=== PATIENT | male | born 1955 | race Caucasian/White ===

== ENCOUNTER → 2017-06-17 16:07 | Outpatient (CLI) | payer OTHER, SELFPAY ==
[2017-06-17 17:08] LABS: Absolute Lymphocyte Count 1.58 X10^3/ul (0.83-4.51); Absolute Neutrophil Count 4.6 X10^3/uL (2.0-7.7); Basophil# 0.02 X10^3/uL; Basophil% 0.3 % (0-1); Eosinophil# 0.16 X10^3/uL; Eosinophils% 2.3 % (0-5); Hematocrit 45.8 % (40-54); Hemoglobin 15.9 g/dl (13.0-16.5); Lymphocyte # 1.58 X10^3/ul (4.0); Lymphocyte % 22.4 % (19-41); Mean Corp Hgb Conc 34.7 g/gl (32-36); Mean Corpuscular Hgb 30.6 pg (27.0-32.0); Mean Corpuscular Volume 88.1 fL (80-94); Mean Platelet Vol. 9.9 fl (6.2-12.0); Monocyte% 9.9 % (0-10); Neutrophil # 4.56 X10^3/uL (2.7-7.7); Neutrophil % 64.5 % (47-70); POSITIVE COUNT NO; POSITIVE DIFFERENTIAL NO; POSITIVE MORPHOLOGY NO; Platelet Count 266 K/mm3 (150-450); RBC Distribution Width CV 13.3 % (11.6-14.6); RBC Distribution Width SD 42.8 fl (35.1-43.9); White Blood Count 7.1 K/mm3 (4.4-11.0)
[2017-06-17 17:37] LABS: AST(SGOT) 36 U/L (15-37); Alanine Aminotransfer ALT/SGPT 62 U/L (16-61); Albumin, Serum 3.7 g/dL (3.2-5.0); Alkaline Phosphatase 71 U/L (45-117); Anion Gap 9 (5-15); BUN 17 mg/dL (7-18); BUN/Creat Ratio 16.8 RATIO (10-20); Calcium,Total 9.3 mg/dL (8.5-10.1); Chloride 102 mmol/L (98-107); Creatinine, Serum 1.01 mg/dL (0.70-1.30); EST Glomerular Filtration Rate 79 mL/min (>60); Est Glom Filt Rate - Afr Amer 96 mL/min (>60); Globulin 3.7 g/dL (2.2-4.2); Glucose 88 mg/dL (74-106); PSA,Total - Annual Screen 7.73 ng/mL (0.00-4.00); Potassium 3.6 mmol/L (3.5-5.1); Protein, Total 7.4 g/dL (6.4-8.2); Sodium Level 139 mmol/L (136-145); Thyroid Stim Hormone (TSH) 1.02 uIU/mL (0.358-3.74)
[2017-06-19 11:22] LABS: Hep C Antibodies <0.1 s/co ratio (0.0-0.9)
== END ==
PROVIDERS: Family Provider Nurse Practitioner Family; PCP Nurse Practitioner Family; Visit Provider Family Medicine Geriatric Medicine
DX: Z00.00 Encounter for general adult medical examination without abnormal findings (principal)
CPT/HCPCS: 36415; 80053; 84153; 84443; 85025; 86803; G0103

== ENCOUNTER → 2018-06-21 09:36 | Outpatient (CLI) | payer MEDICAID, SELFPAY ==
[2015-07-18 02:28] VITALS: BMI 41.9
--- NOTE | 2018-06-21 09:40 | RAD_ITS ---
STUDY: X-RAY - RIGHT KNEE REASON FOR EXAM: Male, 62 years old. Pain with extension TECHNIQUE: 4 view(s) of the knee. COMPARISON: None. FINDINGS: Normal visualized distal femur. Normal visualized proximal tibia and fibula. Normal proximal tibiofibular articulation. There is mild medial and lateral compartment joint space narrowing and moderate chondrocalcinosis. Normal patellofemoral articulation. There are superior and inferior patellar pole osteophytes. There is a moderate volume joint effusion. The soft tissue structures are unremarkable. RAD/Knee 4 or More Views IMPRESSION: No fracture or dislocation. There are degenerative changes particularly at the medial and lateral compartments. Moderate joint effusion. Electronically Signed: Toyin Briggs, at 16:51 EDT Tel , Service support ,
== END ==
PROVIDERS: Family Provider Nurse Practitioner Family; PCP Nurse Practitioner Family; Referring Provider Orthopaedic Surgery; Visit Provider Orthopaedic Surgery
DX: R52 Pain, unspecified (principal)
CPT/HCPCS: 73564

== ENCOUNTER 2018-09-02 11:00 | Outpatient (RCR) | payer MEDICAID, SELFPAY ==
--- NOTE | 2018-08-05 12:04 | HP.PTEVAL_ITS ---
Patient's Visit Information LUCIAN LORD is a 62 year old M referred to Physical Therapy by Bryant Lobo DO with a diagnosis of Right Knee OA. Date of Evaluation: 08/05/18 Physical Therapist: Nuvia Bruno DPT - Visit Plan Frequency: 2x /Week Duration: 4 Weeks Plan: Knee OA- focus on LE and core s/s- Ultrasound to lateral joint line - Subjective Findings: Patient reports that he has calcium build up and OA in the right knee- Has had problems with this knee a few months. Had an injection June 17 which gave him relief for 5-7 days. Pain is located along the lateral aspect of the knee and posterior knee. Pain radiates both to his hip and ankle depending on the day. Agg: walking on uneven surfaces driving, standing, mopping. Worst: 7/10 Eases: sitting in a higher chair. 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 Sleep: pillow under his knee does wake him occasionally. Does not use AD. He is fully I including driving. Does wear good tennis shoes but does not wear orthotics- does not wear a brace. Sometimes when he gets out of the van after driving a distance he always waits a few min before he gets moving. No falls or LOB in the past year. PMHX/Meds: none since he saw Dr. Antunez. (allergy med, Meloxicam, Flomax and a HTN medication) - Objective Posture: FH, RS, Increased kyphosis. Gait: slightly antalgic- decreased stance on right LE with poor heel strike. Stairs: asc/desc 8' recip with 1 HR- decrease control with descent. HR/TR: Increased pain with TR. Palpation: tender along lateral joint line. ROM: 15-95 degrees. SLS: 3 seconds then LOB. Strength: Ankle: 5/5, Knee: 4-/5, Hip: 4/5 Core: poor. Solo: positive. Flex:HS: severe - Goals Goal 1:: Patient will be I with HEP and progression Goal Time Frame: 4-6 Weeks Goal 2:: Patient will asc/desc 8 recip with 1 HR and good control Goal Time Frame: 4-6 Weeks Goal 3:: Patient will demo 0-115 degrees of ROM Goal Time Frame: 4-6 Weeks Goal 4:: Patient will demo 5/5 strength in LE Goal Time Frame: 4-6 Weeks - Rehabilitation Potential Physical Therapy Diagnosis: Patient presents with hypomobility- he has decreased ROM, strength and muscular endurance leading to increased pain with ADL's. Rehabilitation Potential: Fair - Anticipated Interventions Patient/Client Instruction: Educate patient on: Benefits of Fitness Program Therapeutic Exercise to Include: Strength training, Endurance training, Balance training, Agility training, Body mechanics, Postural training, Flexibilty training, Gait and locomotor training, Passive ROM, Active ROM, Dynamic Lumbar Stabilization For the Purpose of:: To improve muscle performance and motor function TENS: Yes Cryotherapy (ice pack, ice massage): Yes Thermo therapy (hot pack): Yes Ultrasound (thermal/non thermal): Yes Thank you for the opportunity to evaluate your patient. For Medicare and Medicare HMO plans, please review the plan of care and approve it. It will need to be FAXED BACK to us at [phone] for Medicare purposes. For Medicare only, by signing this I certify the plan of care. Please let me know if there are questions or concerns regarding this plan of care. Physician Signature: Date:
--- NOTE | 2018-09-02 11:26 | HP.PTDCSUM ---
HP - PT D/C Summary It has been my pleasure to treat LUCIAN LORD under orders from Bryant Lobo DO, for the diagnosis of Right Knee OA for a total of 7 visit(s). Discharge Date: Please see the following information for a summary of their discharge status. - Subjective Subjective: Patient reports that the knee pain ranges from 5-8/10- needs to make himself move around more- he is most painful when he is sitting for long periods of time. Also feels like the weather changes his knee pain. - Pain right lat knee pain Pain Intensity (Out of 10): 5 - Overall Improvement % Improvement: 60 - Objective Objective/Function: Posture: FH, RS, Increased kyphosis. Gait: more lumbering pattern bilaterally. Stairs: asc/desc 8' recip with 1 HR- decrease control with descent. HR/TR: able with UE A. Palpation: tender along lateral joint line. ROM: 5-110 degrees. SLS: 6 seconds then LOB. Strength: Ankle: 5/5, Knee: 5/5, Hip: 4+/5 Core: fair. Solo: positive. Flex:HS: severe - Goals Goal 1:: Patient will be I with HEP and progression Goal Progress: Goal Met Goal 2:: Patient will asc/desc 8 recip with 1 HR and good control Goal Progress: Progressing Goal 3:: Patient will demo 0-115 degrees of ROM Goal Progress: Progressing Goal 4:: Patient will demo 5/5 strength in LE Goal Progress: Progressing - Plan Plan: Discharge to I HEP- encouraged movement - D/C Information If there are questions or concerns regarding this patient's physical therapy, please feel free to call me at [phone]. Thank you for the referral of this patient. Sincerely, Nuvia Bruno DPT
== END 2018-09-02 19:00 | disposition home or self-care (01) ==
LOC: PT 11:00
PROVIDERS: Family Provider Nurse Practitioner Family; PCP Nurse Practitioner Family; Referring Provider Orthopaedic Surgery; Visit Provider Orthopaedic Surgery
DX: M17.11 Unilateral primary osteoarthritis, right knee (principal)
CPT/HCPCS: 97035; 97110; 97161; 97164

== ENCOUNTER → 2018-10-29 11:14 | Outpatient (CLI) | payer MEDICAID, SELFPAY ==
[2018-10-29 11:10] VITALS: BMI 39.2
--- NOTE | 2018-10-29 11:16 | RAD_ITS ---
STUDY: X-RAY - RIGHT SHOULDER REASON FOR EXAM: Male, 62 years old. Pain TECHNIQUE: 4 view(s) of the shoulder. COMPARISON: None. FINDINGS: There are degenerative changes of the glenohumeral articulation. There are degenerative changes of the acromioclavicular joint. Normal acromion. Normal humeral head and visualized proximal humerus. There is periarticular soft tissue calcification consistent with a calcific tendinitis. Normal visualized pulmonary apex. RAD/Shoulder min 2 Views IMPRESSION: Degenerative changes. Calcific tendinitis. Electronically Signed: Sheri Lee MD at 16:48 EDT Tel , Service support ,
--- NOTE | 2018-10-29 11:16 | RAD_ITS ---
STUDY: X-RAY - CERVICAL SPINE REASON FOR EXAM: Male, 62 years old. Neck and shoulder pain. TECHNIQUE: 6 view(s) of the cervical spine were obtained. COMPARISON: None FINDINGS: Normal anterior atlantoaxial articulation. Normal odontoid process. Normal cervical lordosis. There is multi-level endplate spondylosis. There is multi-level degenerative disc disease with multilevel disc space narrowing. There is multi-level osseous foraminal stenosis. The soft tissue structures are unremarkable. RAD/Cerv Spine 4 or 5 Views IMPRESSION: Degenerative changes. Electronically Signed: Sheri Lee MD at 17:00 EDT Tel , Service support ,
== END ==
PROVIDERS: Family Provider Nurse Practitioner Family; PCP Nurse Practitioner Family; Referring Provider Orthopaedic Surgery; Visit Provider Orthopaedic Surgery
DX: M43.6 Torticollis (principal); M25.511 Pain in right shoulder
CPT/HCPCS: 72050; 73030

== ENCOUNTER 2018-12-31 11:00 | Outpatient (RCR) | payer MEDICAID, MEDICARE, SELFPAY ==
[2018-10-29 11:10] VITALS: BMI 39.2
--- NOTE | 2018-11-08 15:30 | HP.PTEVAL ---
Patient's Visit Information LUCIAN LORD is a 62 year old M referred to Physical Therapy by Bryant Lobo DO with a diagnosis of Cervical DDD. Date of Evaluation: 11/08/18 Physical Therapist: Susan Viramontes PT, Cert MDT - Visit Plan Frequency: 2-3x /Week Duration: 4-6 Weeks Plan: POSTURE CORRECTION/STRENGTHENING, INSTRUCTION IN APPROPRIATE BODY MECHANICS AND ACTIVITY MODIFICATIONS. CERVCIAL TX - MECHANICAL AND/OR MANUAL APPROPRIATE. RENE UE ROM, STRETCHING AND STRENGTHENING. HEP INSTRUCTION. 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 Disability: NO. Present symptoms: RIGHT NECK, SHOULDER ARM AND PROXIMAL FOREARM PAIN. INTERMITTENT RIGHT UPPER ARM TINGLING. Present since: ABOUT 6 WEEKS AGO. Pain Scale: Worst - 7/10 Least - 4/10. Currently: 4/10. Commenced as a result of: NO APPARENT REASON. Symptoms at onset: NECK AND SHOULDER. Worse: PUTTING HANDS BEHIND BACK, SHAKING HANDS, TAKING TRASH OUT, TWISTING, DRIVING, HOLDING BAGS IN HANDS WITH ARMS DOWN AT SIDES TO GET X-RAYS. Better: REST, HOT SHOWER WATER. Disturbed sleep: YES. Previous history/Previous treatment: UNREMARKABLE. Dizziness: NO. Tinnitis: NO. Nausea: NO. Shortness of Breath: NO. Difficulty Swollowing: NO. Gait: NORMAL. Accidents: NO. Unexplained weight loss: NO. Imaging: RECENT NECK X-RAY: There is multi-level endplate spondylosis. There is multi-level degenerative disc disease with multilevel disc space. narrowing. There is multi-level osseous foraminal stenosis. RECENT RIGHT SHOULDER X-RAY: FINDINGS: There are degenerative changes of the glenohumeral articulation. There are. degenerative changes of the acromioclavicular joint. Normal acromion. Normal humeral head and visualized proximal humerus. There is periarticular soft tissue calcification consistent with a calcific. tendinitis. PMH/Recent major surgery: HTN, RIGHT KNEE ARTHRITIS. PATIENT REPORTS HE RECENTLY HAD PT HERE FOR HIS RIGHT KNEE PAIN AND IT HELPED - Objective Sitting Posture/Standing Posture: POOR. FORWARD HEAD, ROUNDED SHOULDERS, SLOUCHED. Active Correction of posture: WORSE. Other Observations: INDEP GAIT AND TRANSFERS WITH NO GROSS DEVIATIONS NOTED. Motor deficit: RENE UE'S GROSSLY 5/5 EXCEPT RENE SHOULDERS GRADED 4/5. 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 RIGHT UE TESTING PROVOKES NUMBNESS AND STINGING IN RIGHT SHOULDER. Sensory deficit: RENE UE LIGHT TOUCH SENSATION APPEARS INTACT AND SYMMETRICAL EVEN IN RIGHT SHOULDER WHERE HE GETS NUMBNESS. ROM deficit: RENE SHOULDER ROM LIMITATION BY APPROX 30% AND PAIN IN RIGHT SHOULDER WITH TESTING BUT NOT LEFT. Reflexes: RENE UE'S 2/3. Dural Signs: POSITIVE RIGHT UE. Cervical Mvmt Loss: Flex: NIL. Pro: NIL. Ext: MOD. Ret: ALYSSA. RSB: MOD. LSB: MOD. R Rot: MOD. L Rot: MOD. RETRACTION, EXT, AND RENE SB TESTING PROVOKES INCREASED RIGHT UE PAIN AND NUMBNESS. Postural strength: VERY POOR. Palpation: NO ACUTE TENDERNESS WITH PALPATION OF THE CERVICAL SPINE, CERVICAL MUSCULATURE, UPPER THORACIC OR RIGHT SHOULDER REGIONS. OTHER: MANUAL CERVICAL TX TESTING AND SEATED PASSIVE POSTURE CORRECTION RESULT IN IMMEDIATE DECREASE IN RIGHT NECK AND SHOULDER SX'S. - Goals Goal 1:: DECREASE C/O NECK AND RIGHT UE SX'S Goal Time Frame: 4-6 Weeks Goal 2:: IMPROVE PERSONAL CARE, READING, SLEEP, WORK, DRIVING AND RECREATIONAL FUNCTION Goal Time Frame: 4-6 Weeks Goal 3:: INSTRUCT IN PROPHYLAXIS Goal Time Frame: 4-6 Weeks - Rehabilitation Potential Rehabilitation Potential: Fair - Anticipated Interventions Patient/Client Instruction: Educate patient on: Condition, Plan of Care, Risk Factors, Benefits of Fitness Program For the Purpose of:: To improve self management Therapeutic Exercise to Include: Strength training, Body mechanics, Postural training, Active ROM, Scapular Strength/Stabilization For the Purpose of:: To decrease pain, To increase ROM, To improve muscle performance and motor function, To increase tolerance to activity/condition/position, To improve ability of physical actions for home/community/work/leisure Cryotherapy (ice pack, ice massage): Yes Thermo therapy (hot pack): Yes Ultrasound (thermal/non thermal): Yes Intermittent cervical traction: Yes For the Purpose of:: To decrease pain, To increase ROM, To improve nutrient delivery to tissue Thank you for the opportunity to evaluate your patient. For Medicare and Medicare HMO plans, please review the plan of care and approve it. It will need to be FAXED BACK to us at [phone] for Medicare purposes. For Medicare only, by signing this I certify the plan of care. Please let me know if there are questions or concerns regarding this plan of care. Physician Signature: Date:
--- NOTE | 2018-12-31 11:32 | HP.PTDCSUM ---
HP - PT D/C Summary It has been my pleasure to treat LUCIAN LORD under orders from Bryant Lobo DO, for the diagnosis of Cervical DDD for a total of 11 visit(s). Discharge Date: Please see the following information for a summary of their discharge status. - Subjective Subjective: YOU'RE NOT GOING TO BELIEVE THIS BUT TODAY I HAVE VERY LITTLE PAIN - 2/10. NO NUMBNESS OR TINGLING. PATIENT REPORTS HE IS BETTER OVER-ALL AND GOOD TODAY BUT DOESN'T THINK IT IS CONTINUING TO IMPROVE MUCH. 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 PATIENT REPORTS THE PAIN HE WAS GETTING WITH SHAKING HANDS SEEMS TO HAVE GONE AWAY. REPORTS HE COULDN'T BELIEVE HOW GOOD IT FELT DRIVING TO [place] TODAY. PATIENT REPORTS THAT TO BE HONEST HE DOES NOT DO HIS HOME EX'S MUCH HE SHOULD. - Pain Upper R arm Pain Intensity (Out of 10): 0 r shoulder Pain Intensity (Out of 10): 2 R Cervical Pain Intensity (Out of 10): 2 - Overall Improvement % Improvement: 50 - Objective Objective/Function: PATIENT HAS NOT BEEN ABLE TO COME TO HIS SCHEDULED PHYSICAL THERAPY [facility] CONSISTENTLY LATELY DUE TO BEING AT [facility]. HE ALSO REPORTS NON-COMPLIANCE WITH HEP CONSISTENTLY BUT WITH TREATMENT OVER THE LAST 6 WEEKS OR SO HE REPORTS 50% IMPROVEMENT. Motor deficit: RENE UE'S GROSSLY 5/5 EXCEPT RENE SHOULDERS GRADED 4/5. 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 RIGHT UE TESTING PROVOKES JUST A LITTLE PAIN IN THE SHOULDER BUT NOT BEHIND THE ELBOW LIKE BEFORE. Sensory deficit: RENE UE LIGHT TOUCH SENSATION APPEARS INTACT AND SYMMETRICAL EVEN IN RIGHT SHOULDER WHERE HE STILL GETS NUMBNESS. ROM deficit: RENE SHOULDER ROM LIMITATION BY APPROX 30% AND JUST A LITTLE PAIN IN RIGHT SHOULDER REPORTED WITH TESTING BUT NOT LEFT. Dural Signs: POSITIVE RIGHT UE. Cervical Mvmt Loss: Flex: NIL. Pro: NIL. Ext: MOD. Ret: ALYSSA. RSB: MOD. LSB: MOD. R Rot: MOD. L Rot: MOD. PATIENT REPORTS RIGHT NECK PAIN WITH RETRACTION TESTING TODAY BUT OTHERWISE DENIES INCREASED PAIN, NUMBNESS OR TINGLING WITH CERVICAL ROM TESTING. Postural strength: VERY POOR. Palpation: NO ACUTE TENDERNESS WITH PALPATION OF THE CERVICAL SPINE, CERVICAL MUSCULATURE, UPPER THORACIC OR RIGHT SHOULDER REGIONS. OTHER: LAST PHYSICAL THERAPY VISIT INCLUDED TRACTION TREATMENT WITH 21 LBS AND WAS TOLERATED WELL. - Goals Goal 1:: DECREASE C/O NECK AND RIGHT UE SX'S Goal Progress: Progressing Goal 2:: IMPROVE PERSONAL CARE, READING, SLEEP, WORK, DRIVING AND RECREATIONAL FUNCTION Goal Progress: Progressing Goal 3:: INSTRUCT IN PROPHYLAXIS Goal Progress: Progressing - Plan Plan: D/C DUE TO LACK OF CONTINUED PROGRESS. PATIENT REPORTS HE WOULD LIKE TO TRY TO GIVE THE HEP A SHOT FOR AWHILE THEN GO BACK TO SEE DR. WEST IF HE DOESN'T IMPROVE. - D/C Information If there are questions or concerns regarding this patient's physical therapy, please feel free to call me at [phone]. Thank you for the referral of this patient. Sincerely, Susan Viramontes, PT, Cert MDT
== END 2018-12-31 19:00 | disposition home or self-care (01) ==
LOC: PT 11:00
PROVIDERS: Family Provider Nurse Practitioner Family; PCP Nurse Practitioner Family; Referring Provider Orthopaedic Surgery; Visit Provider Orthopaedic Surgery
DX: M50.30 Other cervical disc degeneration, unspecified cervical region (principal)
CPT/HCPCS: 97012; 97035; 97110; 97140; 97161; 97530

== ENCOUNTER → 2019-01-10 08:23 | Outpatient (CLI) | payer MEDICARE, MEDICAID, SELFPAY ==
[2019-01-10 08:10] VITALS: BMI 39.2
--- NOTE | 2019-01-10 08:27 | RAD_ITS ---
STUDY: X-RAY - LEFT SHOULDER REASON FOR EXAM: Male, 63 years old. Shoulder pain for one week after lifting a heavy object. TECHNIQUE: 4 view(s) of the shoulder. COMPARISON: None. FINDINGS: Normal glenohumeral articulation. There is hypertrophic osteoarthrosis of the acromioclavicular joint with inferior osseous spur formation. Normal acromion. There is no acute fracture, dislocation or destructive osseous pathology. Normal humeral head and visualized proximal humerus. The soft tissue structures are unremarkable. Normal visualized pulmonary apex. RAD/Shoulder min 2 Views IMPRESSION: Degenerative changes of the acromioclavicular joint without acute fracture or dislocation. Electronically Signed: Jonathan Almanzar DO at 16:53 EDT Tel [phone], Service support ,
== END ==
PROVIDERS: Family Provider Nurse Practitioner Family; PCP Nurse Practitioner Family; Referring Provider Orthopaedic Surgery; Visit Provider Orthopaedic Surgery
DX: M25.512 Pain in left shoulder (principal)
CPT/HCPCS: 73030

== ENCOUNTER → 2019-01-21 09:04 | Outpatient (CLI) | payer MEDICARE, MEDICAID, SELFPAY ==
[2019-01-10 08:10] VITALS: BMI 39.2
--- NOTE | 2019-01-21 09:12 | RAD_ITS ---
EXAM DESCRIPTION: PA and lateral CHEST CLINICAL HISTORY: 63 years Male, COMPARISON: Left shoulder x-rays obtained on 07/10/2018 FINDINGS: The thorax is intact. The heart and mediastinum appear to be within normal limits. The lungs appear to be well areated without evidence of pneumonic consolidation or pleural effusion. RAD/Chest PA and Lateral IMPRESSION: Normal chest. Electronically Signed: Koby Gamez, at 11:23 EDT Tel , Service support ,
== END ==
PROVIDERS: Family Provider Nurse Practitioner Family; PCP Nurse Practitioner Family
DX: R07.89 Other chest pain (principal)
CPT/HCPCS: 71046; 97035; 97140; 97530

== ENCOUNTER 2019-02-07 10:00 | Outpatient (RCR) | payer MEDICARE, MEDICAID, SELFPAY ==
[2019-01-10 08:10] VITALS: BMI 39.2
--- NOTE | 2019-01-18 10:49 | HP.PTEVAL ---
Patient's Visit Information LUCIAN LORD is a 63 year old M referred to Physical Therapy by Bryant Lobo DO with a diagnosis of Cevical DDD and L rhomboid strain. Date of Evaluation: 01/17/19 Physical Therapist: Alejandro Bryant DPT - Visit Plan Frequency: 2x /Week Duration: 4-6 Weeks Plan: Start with US to L rhomboid, cervical traction, deep neck flexor strengthening. Add in thoracic extension exercises. Complete to tolerance. - Subjective Findings: Pt. is here today for his initial evaluation with diagnosis of cervical DDD. Pt. reports previously having R shoulder pain earlier this year, but is not having L scapular pain. Pt. rpeorts increased pain with sleeping, lifting and reaching out. Pt. reports decreased pain with OFC anti inflammatories. No ice or heat. Pt. reports decreased pain with L arm supported. PT. deneis N/T in either UE. Pt. does have some associated neck pain as well. PT. reports he thinks he hurt his L scapular region while lifting a generator. Pt. reports his neck pain is a lot better. Pt. has not trialed ice or heat. He has had xrays of his neck. He denies N/T in his UE. Pt. reports increased L scapular pain with reaching, and elevation ofhis arm, Pt. is hopeful to get back to all recreational activiteis without limitations. - Pain Neck Pain Intensity (Out of 10): 1 Pain Intensity Range: 0, 2 L scapular region Pain Intensity (Out of 10): 5 Pain Intensity Range: 0, 6 - Objective POSTURE: Pt. has fwrd head posture, rounded shoulders, increased upper thoracic/lower cervical flexion. pt. is able to improve posture, but unable to fully correct. PALPATION: Pt. has tenderness along bilateral cervcial erector spine, but greatest soreness at L rhomboid and L scapulea origin. No pain with R sided scapular palpation. Hypombility with spring testing of thoracic spine, but no radicular symptoms. NEURO: normal throughout. ROM: CERVICAL SPINE: flexion min loss increase NW, extension mod loss increase NW, SB R min loss increase NW, SB L min loss increase NE, SB mod loss bilat NE. [place] ROM: R full No issues, L shoulder pain with flexion and abduction, but able to complete full motion. MMT: 5/5 throughout; increase in symptoms with L shoulder flexion, abd and horizontal abduction. - Special Tests C/S Radiculapathy - Left Upper limb tension test: Negative C/S Radiculapathy - Right Upper limb tension test: Negative C/S Radiculapathy - Left Spurlings: Negative C/S Radiculapathy - Right Spurlings: Negative C/S Radiculapathy - Left Relief test: Positive Thoracic Sitting: Flexion - Mechanical Response: No effect Thoracic Sitting: Flexion - Symptoms During Testing: No effect Thoracic Sitting: Flexion - Symptoms After Testing: No effect Thoracic Sitting: Extension - Mechanical Response: Increases motion Thoracic Sitting: Extension - Symptoms During Testing: Increases Thoracic Sitting: Extension - Symptoms After Testing: No worse - Goals Goal 1:: Pt. to be I with HEP. Goal Time Frame: 4-6 Weeks Goal 2:: Pt. to have no pain with all reaching, lifting and all ADLs. Goal Time Frame: 4-6 Weeks Goal 3:: Pt. to demonstrate improved posture throughout therapy session. Goal Time Frame: 4-6 Weeks Goal 4:: Pt. to sleep throuhgout the night without increase in symptoms. Goal Time Frame: 4-6 Weeks - Rehabilitation Potential Physical Therapy Diagnosis: Pt. has signs and symptoms of cervical DDD and rhomboid strain. Pt. would benefit from traction and deep neck flexor strengthening along with L rhomboid STM to reduce tissue issues. Rehabilitation Potential: Excellent - Anticipated Interventions Patient/Client Instruction: Educate patient on: Condition, Plan of Care, Risk Factors, Benefits of Fitness Program For the Purpose of:: To facilitate caregiver knowledge, To improve self management, To improve ability to perform tasks related to life management, To improve tolerance to ADL's Therapeutic Exercise to Include: Strength training, Power training, Endurance training, Postural training, Flexibilty training, Passive ROM, Active ROM, Natan Exercises For the Purpose of:: To decrease pain, To increase ROM, To improve nutrient delivery to tissue, To increase oxygenation perfusion, To improve muscle performance and motor function, To improve health of tissue, To decrease soft tissue restriction, To increase flexibility/ROM Manual Therapy Techniques to Include: Mobilization, Passive ROM, Functional dry needling, Soft tissue mobilization For the Purpose of:: To decrease pain, To decrease swelling/inflammation, To increase ROM, To improve nutrient delivery to tissue, To increase oxygenation perfusion Ultrasound (thermal/non thermal): Yes Intermittent cervical traction: Yes For the Purpose of:: To decrease pain, To increase ROM, To improve nutrient delivery to tissue, To increase oxygenation perfusion, To improve muscle performance and motor function, To improve ability to perform ADL's Thank you for the opportunity to evaluate your patient. For Medicare and Medicare HMO plans, please review the plan of care and approve it. It will need to be FAXED BACK to us at [phone] for Medicare purposes. For Medicare only, by signing this I certify the plan of care. Please let me know if there are questions or concerns regarding this plan of care. Physician Signature: Date:
--- NOTE | 2019-02-07 11:25 | HP.PTREVAL ---
Bryant Lobo, DO, It has been my pleasure to treat LUCIAN LORD over the last 7 visits for Cevical DDD and L rhomboid strain. Please see the progress note below for an update on the physical therapy plan of care! Subjective: Pt. reports having about 3/10 L shoulder blade area Objective/Function: CERVICAL ROM: flexion min loss NE, extension min/mod loss increase NE on L side mild, rotation. Pt. has imrpvoed posture, I am really focusing on sitting up straight. Pt. reports overall improved, but is still having some pain in his L mid scapular region. Pt. reports he is able to do most activities at home, but is still having some difficulty with reaching across his body. He reports being 50% better overall. Pt. can still improve on his posture to reduce stress to the L scapula musculature. Plan Plan: POC extended x1 per week for 4 weeks. Progress HEP with focus on postural strengtening, scapular strengthening, add in mid trap stretch as well. Progress HEP this date. Goals Goal 1:: Pt. to be I with HEP. Goal Time Frame: 4-6 Weeks Goal Progress: Goal Met Goal 2:: Pt. to have no pain with all reaching, lifting and all ADLs. Goal Time Frame: 4-6 Weeks Goal Progress: Progressing Goal 3:: Pt. to demonstrate improved posture throughout therapy session. Goal Time Frame: 4-6 Weeks Goal Progress: Progressing Goal 4:: Pt. to sleep throughout the night without increase in symptoms. Goal Time Frame: 4-6 Weeks Goal Progress: Progressing Anticipated Interventions Patient/Client Instruction: Educate patient on: Condition, Plan of Care, Risk Factors, Benefits of Fitness Program For the Purpose of:: To facilitate caregiver knowledge, To improve self management, To improve ability to perform tasks related to life management, To improve tolerance to ADL's Therapeutic Exercise to Include: Strength training, Power training, Endurance training, Postural training, Flexibilty training, Passive ROM, Active ROM, Natan Exercises For the Purpose of:: To decrease pain, To increase ROM, To improve nutrient delivery to tissue, To increase oxygenation perfusion, To improve muscle performance and motor function, To improve health of tissue, To decrease soft tissue restriction, To increase flexibility/ROM Manual Therapy Techniques to Include: Mobilization, Passive ROM, Functional dry needling, Soft tissue mobilization For the Purpose of:: To decrease pain, To decrease swelling/inflammation, To increase ROM, To improve nutrient delivery to tissue, To increase oxygenation perfusion Ultrasound (thermal/non thermal): Yes Intermittent cervical traction: Yes For the Purpose of:: To decrease pain, To increase ROM, To improve nutrient delivery to tissue, To increase oxygenation perfusion, To improve muscle performance and motor function, To improve ability to perform ADL's Please do not hesitate to contact me at [phone] by phone or if you have questions or concerns regarding this new plan of care! Sincerely, Alejandro Bryant, ABDULLAHIT
--- NOTE | 2019-03-07 10:27 | HP.PT.NRP ---
HP - Discharge Summary (1) - Patient Information LUCIAN LORD was seen in my office for initial evaluation on 01/17/19. The following Plan of Care was established for this patient: Initial Frequency: 2x /Week Initial Duration: 4-6 Weeks - Anticipated Interventions Patient/Client Instruction: Educate patient on: Condition, Plan of Care, Risk Factors, Benefits of Fitness Program For the Purpose of:: To facilitate caregiver knowledge, To improve self management, To improve ability to perform tasks related to life management, To improve tolerance to ADL's Therapeutic Exercise to Include: Strength training, Power training, Endurance training, Postural training, Flexibilty training, Passive ROM, Active ROM, Natan Exercises For the Purpose of:: To decrease pain, To increase ROM, To improve nutrient delivery to tissue, To increase oxygenation perfusion, To improve muscle performance and motor function, To improve health of tissue, To decrease soft tissue restriction, To increase flexibility/ROM Manual Therapy Techniques to Include: Mobilization, Passive ROM, Functional dry needling, Soft tissue mobilization For the Purpose of:: To decrease pain, To decrease swelling/inflammation, To increase ROM, To improve nutrient delivery to tissue, To increase oxygenation perfusion Ultrasound (thermal/non thermal): Yes Intermittent cervical traction: Yes For the Purpose of:: To decrease pain, To increase ROM, To improve nutrient delivery to tissue, To increase oxygenation perfusion, To improve muscle performance and motor function, To improve ability to perform ADL's This patient was last seen in our office 02/07/19. Pertinent comments regarding their Physical therapy will appear below: Pt. was seen for his shoulder, UT pain. Pt. was doing very well, but wanted to add in some more strengthening. Pt. has not been back since re evaluation and will be DC to HEP at this point in time. At this point I will be discontinuing this patient from physical therapy. I would be happy to see this patient again in the future if found appropriate by the physician. Thank you! Alejandro Bryant DPT
== END 2019-02-07 19:00 | disposition home or self-care (01) ==
LOC: PT 10:00
PROVIDERS: Family Provider Nurse Practitioner Family; PCP Nurse Practitioner Family; Visit Provider Orthopaedic Surgery
DX: M50.30 Other cervical disc degeneration, unspecified cervical region (principal); M79.18 Myalgia, other site
CPT/HCPCS: 97035; 97110; 97140; 97161; 97530

== ENCOUNTER 2019-02-08 11:14 | Emergency (ER) | payer MEDICARE, MEDICAID, SELFPAY ==
[2019-01-10 08:10] VITALS: BMI 39.2
[2019-02-08 11:15] VITALS: BP 150/95; PULSE 116; RESP 18; TEMP 36.2; O2SAT 99; BMI 39.6
[2019-02-08 12:01] VITALS: O2SAT 97
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
[2019-02-08 12:22] VITALS: PULSE 76; RESP 16; O2SAT 99
== END 2019-02-08 12:22 | disposition home or self-care (01) ==
PROVIDERS: Emergency Provider Emergency Medicine; Family Provider Nurse Practitioner Family; PCP Nurse Practitioner Family
DX: Z04.1 Encounter for examination and observation following transport accident (principal); V49.40XA Driver injured in collision with unspecified motor vehicles in traffic accident, initial encounter; Y93.9 Activity, unspecified; Y92.410 Unspecified street and highway as the place of occurrence of the external cause; Z87.891 Personal history of nicotine dependence
CPT/HCPCS: 99282

== ENCOUNTER → 2019-05-18 09:26 | Outpatient (CLI) | payer MEDICARE, SELFPAY ==
[2019-05-18 09:03] VITALS: BMI 39.6
--- NOTE | 2019-05-18 09:29 | RAD_ITS ---
STUDY: X-RAY - RIGHT KNEE REASON FOR EXAM: Male, 63 years old. knee pain TECHNIQUE: 4 view(s) of the knee. COMPARISON: None. FINDINGS: Normal visualized distal femur. Normal visualized proximal tibia and fibula. Normal proximal tibiofibular articulation. There is no demonstrated fracture. Mild narrowing with minimal marginal osteophytosis. Generalized and meniscal chondrocalcinosis of the medial compartment. Mild to moderate narrowing of the lateral compartment with marginal osteophytosis with a chronically fragmented tibial osteophyte and generalized and meniscal chondrocalcinosis. There is moderate degenerative arthrosis of the patellofemoral articulation. There is a soft tissue prominence in the suprapatellar region suggesting a small volume joint effusion. The soft tissue structures are unremarkable. RAD/Knee 4 or More Views IMPRESSION: Normally located in a without fracture, osteolytic or blastic bone lesion. Mild to moderate narrowing, marginal osteophytosis, generalized and meniscal chondrocalcinosis of the medial, lateral and patellofemoral compartments with a small volume joint effusion. Electronically Signed: Belen Parnell MD at 15:55 EST , Service support ,
== END ==
PROVIDERS: PCP Nurse Practitioner Family; Referring Provider Orthopaedic Surgery; Visit Provider Orthopaedic Surgery
DX: M25.561 Pain in right knee (principal)
CPT/HCPCS: 73564

== ENCOUNTER → 2020-03-05 07:26 | Outpatient (CLI) | payer MEDICARE, SELFPAY ==
[2019-12-28 07:55] VITALS: BMI 39.6
[2020-03-05 08:26] LABS: Absolute Lymphocyte Count 1.38 X10^3/uL (0.83-4.51); Absolute Neutrophil Count 4.7 X10^3/uL (2.0-7.7); Basophil# 0.04 X10^3/uL; Basophil% 0.6 % (0-1); Eosinophil# 0.12 X10^3/uL; Eosinophils% 1.8 % (0-5); Hematocrit 46.4 % (40-54); Hemoglobin 15.2 g/dL (13.0-16.5); Lymphocyte # 1.38 X10^3/ul (4.0); Lymphocyte % 20.2 % (19-41); Mean Corp Hgb Conc 32.8 g/dL (32-36); Mean Corpuscular Hgb 30.2 pg (27.0-32.0); Mean Corpuscular Volume 92.2 fL (80-94); Mean Platelet Vol. 10.3 fl (6.2-12.0); Monocyte% 7.3 % (0-10); NRBC Flagged by Analyzer 0 % (0-5); Neutrophil # 4.72 X10^3/uL (2.7-7.7); Neutrophil % 68.9 % (47-70); Platelet Count 188 K/mm3 (150-450); RBC Distribution Width CV 13.4 % (11.6-14.6); RBC Distribution Width SD 45.6 fl (35.1-43.9); Red Blood Count 5.03 M/mm3 (4.6-6.2); White Blood Count 6.8 K/mm3 (4.4-11.0)
[2020-03-05 08:52] LABS: ALB/GLOB Ratio 1.2 RATIO (0.9-2.4); AST(SGOT) 13 U/L (15-37); Alanine Aminotransfer ALT/SGPT 27 U/L (16-61); Albumin, Serum 3.8 g/dL (3.2-5.0); Alkaline Phosphatase 88 U/L (45-117); Anion Gap 4 (5-15); BUN 22 mg/dL (7-18); Calcium,Total 9.1 mg/dL (8.5-10.1); Chloride 108 mmol/L (98-107); Cholesterol 113 mg/dL (200); Creatinine, Serum 1.16 mg/dL (0.70-1.30); EST Glomerular Filtration Rate 67 mL/min (>60); Est Glom Filt Rate - Afr Amer 81 mL/min (>60); Globulin 3.3 g/dL (2.2-4.2); Glucose 92 mg/dL (74-106); High Density Lipoprotein 52 mg/dL; PSA,Total- Diagnostic 7.79 ng/mL (0.0-4.0); Potassium 3.8 mmol/L (3.5-5.1); Protein, Total 7.1 g/dL (6.4-8.2); Sodium Level 141 mmol/L (136-145); Triglycerides 48 mg/dL; Very Low Density Lipoprotein 10 mg/dL (5-40)
== END ==
DX: I10 Essential (primary) hypertension (principal); E55.9 Vitamin D deficiency, unspecified; R97.20 Elevated prostate specific antigen [PSA]
CPT/HCPCS: 36415; 80053; 80061; 84153; 85025

== ENCOUNTER → 2020-06-16 07:38 | Outpatient (CLI) | payer MEDICARE, MEDICAID, SELFPAY ==
[2020-06-04 08:02] VITALS: BMI 38.6
--- NOTE | 2020-06-16 07:48 | RAD_ITS ---
STUDY: X-RAY - CERVICAL SPINE REASON FOR EXAM: Male, 64 years old. DISTURBANCES OF SKIN SENSATION TECHNIQUE: 3 view(s) of the cervical spine were obtained. COMPARISON: 10/29/2018 FINDINGS: Normal anterior atlantoaxial articulation. Normal odontoid process. There is straightening of the normal cervical lordosis. There is multi-level endplate spondylosis. There is multi-level degenerative disc disease with multilevel disc space narrowing, most conspicuous at C3-C4, C4-C5 and C5-C6. Multilevel facet arthropathy and uncovertebral hypertrophy with high likelihood of foraminal narrowing. The soft tissue structures are unremarkable. RAD/Cerv Spine 2 or 3 Views IMPRESSION: Multilevel degenerative changes, as above. Electronically Signed: Damon Carney MD ([place]) at 14:26 EST , Service support ,
--- NOTE | 2020-06-16 07:49 | RAD_ITS ---
STUDY: X-RAY - LEFT SHOULDER REASON FOR EXAM: Male, 64 years old. Arm numbness TECHNIQUE: 3 view(s) of the shoulder. COMPARISON: 01/10/2019 FINDINGS: There is mild degenerative arthrosis of the glenohumeral articulation. There is hypertrophic osteoarthrosis of the acromioclavicular joint with inferior osseous spur formation. Normal acromion. Normal humeral head and visualized proximal humerus. The soft tissue structures are unremarkable. Normal visualized pulmonary apex. RAD/Shoulder min 2 Views IMPRESSION: Similar degenerative changes. Electronically Signed: Damon Carney MD ([place]) at 14:23 EST , Service support ,
--- NOTE | 2020-06-16 07:49 | RAD_ITS ---
STUDY: X-RAY - RIGHT SHOULDER REASON FOR EXAM: Male, 64 years old. SKIN SENSATIONS TECHNIQUE: 3 view(s) of the shoulder. COMPARISON: 10/29/2018 FINDINGS: There is mild degenerative arthrosis of the glenohumeral articulation. There is hypertrophic osteoarthrosis of the acromioclavicular joint with inferior osseous spur formation. Normal acromion. Normal humeral head and visualized proximal humerus. There is periarticular soft tissue calcification consistent with a calcific tendinitis. Normal visualized pulmonary apex. RAD/Shoulder min 2 Views IMPRESSION: Acromioclavicular joint arthrosis with inferior spurring. Similar calcific tendinitis. Electronically Signed: Damon Carney MD ([place]) at 14:23 EST , Service support ,
== END ==
PROVIDERS: Referring Provider Nurse Practitioner Adult Health; Visit Provider Nurse Practitioner Adult Health
DX: R20.9 Unspecified disturbances of skin sensation (principal)
CPT/HCPCS: 72040; 73030

== ENCOUNTER → 2020-07-02 07:36 | Outpatient (CLI) | payer MEDICARE, MEDICAID, SELFPAY ==
[2020-06-04 08:02] VITALS: BMI 38.6
--- NOTE | 2020-07-02 07:53 | EKG12_ITS ---
Test Reason : SKIN DISTURBANCE Blood Pressure : / mmHG Vent. Rate : 066 BPM Atrial Rate : 066 BPM P-R Int : 158 ms QRS Dur : 072 ms QT Int : 378 ms P-R-T Axes : 044 -17 038 degrees QTc Int : 396 ms Normal sinus rhythm Normal ECG Confirmed by KERRY SALAZAR, ALICIA ([id number]), deputy editor in chief BOBBY PHELAN ([id number]) on 07/03/2020 9:05:02 AM Referred By: [facility] Confirmed By:ALICIA PAYNE MD
[2020-07-02 09:29] LABS: PSA,Total- Diagnostic 7.82 ng/mL (0.0-4.0)
== END ==
DX: R97.20 Elevated prostate specific antigen [PSA] (principal); R20.9 Unspecified disturbances of skin sensation
CPT/HCPCS: 36415; 84153; 93005

== ENCOUNTER 2020-09-27 09:30 | Outpatient (RCR) | payer MEDICARE, MEDICAID, SELFPAY ==
[2020-06-04 08:02] VITALS: BMI 38.6
--- NOTE | 2020-06-06 09:01 | HP.PTEVAL ---
Patient's Visit Information LUCIAN LORD is a 64 year old M referred to Physical Therapy by Dr. Bryant Lobo DO with a diagnosis of R KNEE DJD. Date of Evaluation: 06/06/20 Physical Therapist: Susan Viramontes PT, Cert MDT - Visit Plan Frequency: 2-3x /Week Duration: 4-6 Weeks Plan: PATIENT HAS SILVER SNEAKERS AND WOULD CONSIDER USING IT FOR MACHINE EX'S BUT WILL ALSO NEED A WRITTEN HOME EX PROGRAM. ULTRASOUND, R LE ROM, STRETCHING AND STRENGTHENING TO HELP MEET SET GOALS. 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 SWEEPING FLOORS, TAKING OUT TRASH AND THROWING IT IN THE DUMPSTER, MOPPING STEPS. MISSED 3 DAYS OF WORK FOR KNEE PAIN LAST WEEK. Disability: NO. Present symptoms: BURNING IN THE BACK OF THE KNEE. R KNEE STIFFNESS. RIGHT KNEE PAIN AND NUMBNESS. RIGHT KNEE SWELLING. STINGING AND PULLING R KNEE. Present since: YEARS - AT LEAST 2 YEARS. Pain Scale: WORST 7/10, LEAST 5/10. Currently: 5/10. Commenced as a result of: ARTHRITIS. Symptoms at onset: R KNEE. Worse: STANDING IN ONE POSITION, STEPS, TWISTING, WORK, TWISTING TO GET X-RAY. WALKING ON GRASS/UNEVEN SURFACES. Better: R KNEE BRACE, R ANKLE BRACE, CHANGING SHOES OFTEN, ICY HOT, PILLOW UNDER KNEE, VOLTERAN CREAM, MALOXACAM. Disturbed sleep: YES. Previous history/Previous treatment: APR 27 [address] LOBO BUT DIDN'T HELP LIKE THE SHOT HAD IN THE PAST. INJECTION FROM DR. LOBO ABOUT A YEAR AGO HELPED A LOT. PHYSICAL THERAPY ABOUT A YEAR AGO AND IT SEEMED TO HELP. Gait: NOT USING ANY ASSISTIVE DEVICES. PATIENT FEELS LIKE HE CAN WALK PRETTY NORMAL WITHOUT LIMPING BUT IT HURTS STINGS. SEEMS TO LOOSEN UP HE GETS GOING. WALKS ABOUT 1/2 MILE AT NORMAL NOT FAST PACE ABOUT 2 TIMES A WEEK WEATHER ALLOWS. Accidents: NO. Unexplained weight loss: NO. Imaging: RECENT R KNEE X-RAY: There is moderate degenerative arthrosis of the medial femorotibial. compartment with moderate joint space narrowing. There is moderate. degenerative arthrosis of the lateral femorotibial compartment with. moderate joint space narrowing. There is moderate degenerative arthrosis. of the patellofemoral articulation. The soft tissue structures are unremarkable. RAD/Knee 4 or More Views. IMPRESSION: Degenerative arthrosis. Electronically Signed: Cecilio Cabral MD. at 14:38 EST. PMH: HTN, HISTORY OF NECK PAIN. - Objective THIS PATIENT AMBULATES INDEP'LY INTO PT WITH NO GROSS DEVIATIONS NOTED EXCEPT DIFFICULTY INITIATING GAIT AFTER SITTING. HE DOES HAVE A MILD LIMP ON THE RIGHT LE AND WALKS ON A BENT KNEE. RENE LE LIGHT TOUCH SENSATION IS INTACT AND SYMMETRICAL. MODERATE EDEMA RIGHT KNEE. RIGHT LE STRENGTH: HIP 4/5, KNEE EXT 3+ TO 4-/5, KNEE FLEX 3+/5, ANKLE DORSI 5/5. PATIENT IS ONLY ABLE TO SLS ON THE RIGHT LE APPROX 3 SEC AND BALANCE ON THE L LE IS LIMITED ALSO TO ABOUT 5 SEC. R KNEE ROM: -22 DEG EXT TO 108 DEG FLEX IN SUPINE WITH A HEEL SLIDE. - Goals Goal 1:: INDEP AND SAFE GAIT ON LEVEL SURFACES AND UP AND DOWN STEPS WITH LEAST DEVIATIONS Goal Time Frame: 4-6 Weeks Goal 2:: IMPROVE FUNCTIONAL ROM OF RIGHT KNEE TO -10 DEG EXT TO 115 DEG FLEX Goal Time Frame: 4-6 Weeks Goal 3:: IMPROVE FUNCTIONAL STRENGTH OF R LE TO 4-5/5 THROUGHOUT TO EASE ADLS Goal Time Frame: 4-6 Weeks Goal 4:: PATIENT WILL BE INDEP WITH A HOME AND/OR GYM EX PROGRAM FOR CONTINUED IMPROVEMENT ONCE FORMAL PHYSICAL THERAPY CONCLUDES. Goal Time Frame: 4-6 Weeks - Anticipated Interventions Patient/Client Instruction: Educate patient on: Condition, Plan of Care, Risk Factors, Benefits of Fitness Program For the Purpose of:: To improve self management Therapeutic Exercise to Include: Strength training, Balance training, Flexibilty training, Gait and locomotor training, Neuromotor development, In an aquatic setting, Dynamic Lumbar Stabilization For the Purpose of:: To decrease pain, To decrease swelling/inflammation Cryotherapy (ice pack, ice massage): Yes Thermo therapy (hot pack): Yes Ultrasound (thermal/non thermal): Yes For the Purpose of:: To decrease pain, To decrease swelling/inflammation, To improve nutrient delivery to tissue Thank you for the opportunity to evaluate your patient. For Medicare and Medicare HMO plans, please review the plan of care and approve it. It will need to be FAXED BACK to us at [phone] for Medicare purposes. For Medicare only, by signing this I certify the plan of care. Please let me know if there are questions or concerns regarding this plan of care. Physician Signature: Date:
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
--- NOTE | 2020-09-18 14:35 | HP.PTREVAL ---
Dr. Bryant Lobo, DO, It has been my pleasure to treat LUCIAN LORD over the last 11 visits for R KNEE DJD. Please see the progress note below for an update on the physical therapy plan of care! Subjective: PATIENT REPORTS THAT AUGUST 24 HE RECEIVED A R KNEE CORTISONE INJECTION FROM DR. LOBO AND HE THINKS IT HELPED SOME. AT THAT TIME IT WAS DECIDED TO PURSUE GETTING A SERIES OF 3 GEL INJECTIONS. PATIENT REPORTS INSURANCE DENIED HIS INJECTIONS AND HE IS GOING TO TALK TO DR. LOBO'S OFFICE ABOUT IT TODAY. PATIENT REPORTS PHYSICAL THERAPY WAS HELPING HIS KNEE AND HE HAS HAD SOME INCREASED PAIN SINCE STOPPING THERAPY. INCREASED PAIN TRYING TO CARRY LIGHT AIR CONDITIONER UP STEPS YESTERDAY. PATIENT REPORTS HIS SCIATICA HAS CALMED DOWN. Objective/Function: PATIENT WAS SEEN TODAY FOR RE-ASSESSMENT OF PROGRESS TOWARD THE SET PT GOALS AND THE NEED FOR FURTHER PHYSICAL THERAPY VS READINESS FOR DISCHARGE. UPON EXAM TODAY PATIENT DEMO'S DECREASED LIMP ON THE R LE COMPARED TO LAST VISIT AND R KNEE ROM HAS FURTHER IMPROVED TO -15 DEG EXT TO 118 DEG FLEXION. HE IS REPORTING LESS PAIN OVER-ALL WITH ACTIVITIES LIKE STEPS AND WALKING AND IS BACK TO WALKING ABOUT .25 MILES DAILY. HE REPORTS HIS PAIN IS STILL BAD AT TIMES THOUGH. MODERATE EDEMA RIGHT KNEE. RIGHT LE STRENGTH: HIP 4/5, KNEE EXT 4-/5, KNEE FLEX 4-/5, ANKLE DORSI 5/5. PATIENT IS ONLY ABLE TO SLS ON THE RIGHT LE APPROX 5 SEC. Plan Plan: ADD TO HEP PATIENT IS READY AND SCIATICA ALLOWS. PATIENT HAS SILVER SNEAKERS AND WOULD CONSIDER USING IT FOR MACHINE EX'S BUT WILL ALSO NEED A WRITTEN HOME EX PROGRAM. ULTRASOUND, R LE ROM, STRETCHING AND STRENGTHENING TO HELP MEET SET GOALS. Goals Goal 1:: INDEP AND SAFE GAIT ON LEVEL SURFACES AND UP AND DOWN STEPS WITH LEAST DEVIATIONS Goal Time Frame: 4-6 Weeks Goal Progress: Progressing Goal 2:: IMPROVE FUNCTIONAL ROM OF RIGHT KNEE TO -10 DEG EXT TO 115 DEG FLEX Goal Time Frame: 4-6 Weeks Goal Progress: Progressing Goal 3:: IMPROVE FUNCTIONAL STRENGTH OF R LE TO 4-5/5 THROUGHOUT TO EASE ADLS Goal Time Frame: 4-6 Weeks Goal Progress: Progressing Goal 4:: PATIENT WILL BE INDEP WITH A HOME AND/OR GYM EX PROGRAM FOR CONTINUED IMPROVEMENT ONCE FORMAL PHYSICAL THERAPY CONCLUDES. Goal Time Frame: 4-6 Weeks Goal Progress: Progressing Anticipated Interventions Patient/Client Instruction: Educate patient on: Condition, Plan of Care, Risk Factors, Benefits of Fitness Program For the Purpose of:: To improve self management Therapeutic Exercise to Include: Strength training, Balance training, Flexibilty training, Gait and locomotor training, Neuromotor development, In an aquatic setting, Dynamic Lumbar Stabilization For the Purpose of:: To decrease pain, To decrease swelling/inflammation Cryotherapy (ice pack, ice massage): Yes Thermo therapy (hot pack): Yes Ultrasound (thermal/non thermal): Yes For the Purpose of:: To decrease pain, To decrease swelling/inflammation, To improve nutrient delivery to tissue Please do not hesitate to contact me at [phone] by phone or if you have questions or concerns regarding this new plan of care! Sincerely, Susan Viramontes, PT, Cert MDT
--- NOTE | 2020-09-27 10:17 | HP.PTDCSUM ---
It has been my pleasure to treat LUCIAN LORD referred by Dr. Bryant Lobo DO, with the diagnosis of R KNEE DJD for a total of 14 visit(s). Discharge Date: 09/27/20 Please see the following information for a summary of their discharge status. Subjective: FIRST INJECTION PENDING TOMORROW. PATIENT REPRORTS THAT PT HAS HELPED AND HAS CONTINUED TO HELP OVER THE LAST FEW WEEKS. PATIENT REPORTS HE HASN'T HAD A CHANCE TO USE HIS [employer]IP DUE TO COVID AND KNEE PAIN. HE WOULD LIKE TO STICK WITH THE NUSTEP MACHINE FOR NOW UNTIL HE GETS HIS 3 KNEE INJECTIONS. INTERESTED IN LEARING A GYM EX PROGRAM AFTER GETTING THE SHOTS AND IN THE FALL WHEN HE IS NOT ACTIVE OUTSIDE. RIGHT KNEE Pain Intensity (Out of 10): 6 RIGHT ANKLE Pain Intensity (Out of 10): 0 R LOW BACK Pain Intensity (Out of 10): 3 RIGHT THIGH Pain Intensity (Out of 10): 0 % Improvement: 40 Objective/Function: UPON EXAM TODAY PATIENT DEMO'S DECREASED LIMP ON THE R LE COMPARED TO LAST VISIT AND R KNEE ROM HAS FURTHER IMPROVED A LITTLE BIT TO -12 DEG EXT TO 120 DEG FLEXION. HE DEMO'S INDEP GAIT UP AND DOWN A FLIGHT OF STEPS RECIPRICALLY WITH INTERMITTENT USE OF ONE HANDRAIL. MILD DIFFICULTY DESCENDING STEPS WHEN LEADING WITH LEFT LE. HE IS REPORTING LESS PAIN OVER-ALL WITH ACTIVITIES LIKE STEPS AND WALKING AND IS BACK TO WALKING UNLIMITED DISTANCES TO DO THINGS LIKE FISHING BUT IF HE STANDS AND WALKS TOO MUCH HE PAYS FOR IT LATER. MODERATE EDEMA RIGHT KNEE. RIGHT LE STRENGTH (WITH MMT'ING MID-RANGE) HIP 4/5, KNEE EXT 4/5, KNEE FLEX 4/5, ANKLE DORSI 5/5. PATIENT IS NOW ABLE TO SLS ON THE RIGHT LE APPROX 5 SEC. PATIENT REPORTED DECREASED PAIN POST NUSTEP AND US. Goal 1:: INDEP AND SAFE GAIT ON LEVEL SURFACES AND UP AND DOWN STEPS WITH LEAST DEVIATIONS Goal Progress: Progressing Goal 2:: IMPROVE FUNCTIONAL ROM OF RIGHT KNEE TO -10 DEG EXT TO 115 DEG FLEX Goal Progress: Progressing Goal 3:: IMPROVE FUNCTIONAL STRENGTH OF R LE TO 4-5/5 THROUGHOUT TO EASE ADLS Goal Progress: Progressing Goal 4:: PATIENT WILL BE INDEP WITH A HOME AND/OR GYM EX PROGRAM FOR CONTINUED IMPROVEMENT ONCE FORMAL PHYSICAL THERAPY CONCLUDES. Goal Progress: Progressing Plan: D/C TO HEP If there are questions or concerns regarding this patient's physical therapy, please feel free to call me at [phone]. Thank you for the referral of this patient. Sincerely, Susan Viramontes, PT, Cert MDT
== END 2020-09-27 19:00 | disposition home or self-care (01) ==
LOC: PT 09:30
PROVIDERS: Referring Provider Orthopaedic Surgery; Visit Provider Orthopaedic Surgery
DX: M17.11 Unilateral primary osteoarthritis, right knee (principal)
CPT/HCPCS: 97035; 97110; 97161; 97164; 97530

== ENCOUNTER 2020-11-19 08:27 | Outpatient (RCR) | payer MEDICARE, MEDICAID, SELFPAY ==
[2020-10-11 07:55] VITALS: BMI 38.5
--- NOTE | 2020-11-19 09:48 | HP.PTEVAL ---
Patient's Visit Information LUCIAN LORD is a 64 year old M referred to Physical Therapy by MANNIE Tamayo with a diagnosis of B shoulder pain. Date of Evaluation: 11/19/20 Physical Therapist: BLANKA Briseno - Visit Plan Frequency: 2-3x /Week Duration: 6 Weeks Plan: 2-3X/ week for 4-6 weeks for B shoulder PROM, AAROM, AROM, postural exercises, shoulder strengthening, with HEP - Subjective Pt reports that he has B shoulder Arthritis and some numbness in the R shoulder and a little in the L shoulder but it is more pec stinging on the L shoulder. He reports that his neck stings down the back of his neck to each shoulder. This has been going on for about a year now. They did x-rays and they showed moderate arthritis. She is going to send them to Dr Lobo. 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 goes back in 2 weeks... if he lifts and twists or mops her has has achiness after and that lasts a few minutes. He is R handed. He is sleeping ok but it does bother him some nights and he can not sleep then. - Pain R shoulder pain Pain Intensity (Out of 10): 5 L shoulder pain Pain Intensity (Out of 10): 3 - Objective R shoulder flex 120 degrees, 111 degrees abd, L2 IR, 37 ER. L shoulder flex 126 degrees, 116 degrees abd, L5 IR, 46 ER. R shoulder MMT: B shld flex and abd 4/5, IR 4-/5 and ER 4-/5. L shoulder MMT: B shld flex and abd 4/5 and IR and ER 4-/5. Posture: pt sits with forward head and rounded shoulders and flexed at the L-spine and throacic spine. C-spine AROM: flex 50%, Ext 25%, Rot B 50%, SB B 25%. Tight mid trap, levators B. Bicep reflex B 2+/3 B - Balance/Special Test Scores Quick DASH Score: 31.8175 - Goals Goal 1:: I HEP Goal Time Frame: 4-6 Weeks Goal 2:: Sit with upright posture during treatment sessions without having to be corrected Goal Time Frame: 4-6 Weeks Goal 3:: Increase B shoulder elevation to 140 degrees or greater with no pain B Goal Time Frame: 4-6 Weeks Goal 4:: Increase B shoulder strength to 4/5 all planes B Goal Time Frame: 4-6 Weeks - Rehabilitation Potential Rehabilitation Potential: Good - Anticipated Interventions Patient/Client Instruction: Educate patient on: Condition, Plan of Care For the Purpose of:: To decrease pain, To increase ROM, To improve muscle performance and motor function, To improve ability to perform ADL's, To increase tolerance to activity/condition/position, To improve performance and independence with ADL's, To improve ability of physical actions for home/community/work/leisure, To decrease soft tissue restriction, To increase flexibility/ROM, To improve health and function, To foster healthy habits Therapeutic Exercise to Include: Strength training, Postural training, Flexibilty training, Neuromotor development, Passive ROM, Active ROM, Scapular Strength/Stabilization For the Purpose of:: To decrease pain, To increase ROM, To improve nutrient delivery to tissue, To improve muscle performance and motor function, To improve ability to perform ADL's, To increase tolerance to activity/condition/position, To improve performance and independence with ADL's, To decrease soft tissue restriction, To increase flexibility/ROM, To improve health and function, To improve self management, To prevent re-injury Manual Therapy Techniques to Include: Mobilization, Passive ROM, Soft tissue mobilization For the Purpose of:: To decrease pain, To increase ROM, To improve nutrient delivery to tissue, To improve muscle performance and motor function, To improve ability to perform ADL's, To improve health of tissue, To increase flexibility/ROM, To improve self management Thank you for the opportunity to evaluate your patient. For Medicare and Medicare HMO plans, please review the plan of care and approve it. It will need to be FAXED BACK to us at [phone] for Medicare purposes. For Medicare only, by signing this I certify the plan of care. Please let me know if there are questions or concerns regarding this plan of care. Physician Signature: Date:
--- NOTE | 2021-03-12 13:04 | HP.PT.NRP ---
LUCIAN LORD was seen in my office for initial evaluation on 11/19/20. The following Plan of Care was established for this patient: Initial Frequency: 2-3x /Week Initial Duration: 6 Weeks Patient/Client Instruction: Educate patient on: Condition, Plan of Care For the Purpose of:: To decrease pain, To increase ROM, To improve muscle performance and motor function, To improve ability to perform ADL's, To increase tolerance to activity/condition/position, To improve performance and independence with ADL's, To improve ability of physical actions for home/community/work/leisure, To decrease soft tissue restriction, To increase flexibility/ROM, To improve health and function, To foster healthy habits Therapeutic Exercise to Include: Strength training, Postural training, Flexibilty training, Neuromotor development, Passive ROM, Active ROM, Scapular Strength/Stabilization For the Purpose of:: To decrease pain, To increase ROM, To improve nutrient delivery to tissue, To improve muscle performance and motor function, To improve ability to perform ADL's, To increase tolerance to activity/condition/position, To improve performance and independence with ADL's, To decrease soft tissue restriction, To increase flexibility/ROM, To improve health and function, To improve self management, To prevent re-injury Manual Therapy Techniques to Include: Mobilization, Passive ROM, Soft tissue mobilization For the Purpose of:: To decrease pain, To increase ROM, To improve nutrient delivery to tissue, To improve muscle performance and motor function, To improve ability to perform ADL's, To improve health of tissue, To increase flexibility/ROM, To improve self management This patient was last seen in our office 11/19/20. Pertinent comments regarding their Physical therapy will appear below: [facility]ERMIN PT as pt has not scheduled since his initial eval. At this point I will be discontinuing this patient from physical therapy. I would be happy to see this patient again in the future if found appropriate by the physician. Thank you! Patti Lamas, BLANKA Balance/Gait/Functional tests - Balance/Special Test Scores Quick DASH Score: [phone]
== END 2020-11-19 19:00 | disposition home or self-care (01) ==
LOC: PT 08:27
PROVIDERS: Referring Provider Nurse Practitioner Adult Health; Visit Provider Nurse Practitioner Adult Health
DX: M25.512 Pain in left shoulder (principal)
CPT/HCPCS: 97161

== ENCOUNTER → 2021-01-07 11:36 | Outpatient (CLI) | payer MEDICARE, MEDICAID, SELFPAY ==
[2021-01-07 12:51] LABS: ALB/GLOB Ratio 0.9 RATIO (0.9-2.4); AST(SGOT) 32 U/L (15-37); Alanine Aminotransfer ALT/SGPT 41 U/L (16-61); Albumin, Serum 3.6 g/dL (3.2-5.0); Alkaline Phosphatase 76 U/L (45-117); Anion Gap 5 (5-15); BUN 22 mg/dL (7-18); BUN/Creat Ratio 18.3 RATIO (10-20); Calcium,Total 9.1 mg/dL (8.5-10.1); Chloride 105 mmol/L (98-107); Cholesterol 98 mg/dL (200); EST Glomerular Filtration Rate 64 mL/min (>60); Est Glom Filt Rate - Afr Amer 78 mL/min (>60); Globulin 3.8 g/dL (2.2-4.2); Glucose 97 mg/dL (74-106); High Density Lipoprotein 44 mg/dL; Potassium 3.9 mmol/L (3.5-5.1); Protein, Total 7.4 g/dL (6.4-8.2); Sodium Level 138 mmol/L (136-145); Triglycerides 162 mg/dL; Very Low Density Lipoprotein 32 mg/dL (5-40)
[2021-01-08 14:37] LABS: PSA, Free 1.89 ng/mL; PSA, Free % 23.3 % (.); PSA, Total Ultrasensitive 8.1 ng/mL (0.0-4.0)
[2021-01-09 14:52] LABS: Vitamin D 1,25-Dihydroxy 28.6 pg/mL (19.9-79.3)
== END ==
PROVIDERS: Referring Provider Nurse Practitioner Adult Health; Visit Provider Nurse Practitioner Adult Health
DX: I10 Essential (primary) hypertension (principal); E55.9 Vitamin D deficiency, unspecified; R97.20 Elevated prostate specific antigen [PSA]
CPT/HCPCS: 36415; 80053; 80061; 82652; 84153; 84154

== ENCOUNTER 2021-01-18 15:13 | Outpatient (CLI) | payer MEDICARE, MEDICAID, SELFPAY ==
[2021-01-18] MEDS: 0.9% Saline Lock 10 ML Syringe IV (15:25)
[2021-01-18 15:26] VITALS: BP 137/68; PULSE 112; RESP 22; TEMP 36.5; O2SAT 91; BMI 37.2
[2021-01-18 16:05] VITALS: BP 127/65; PULSE 106; RESP 20; TEMP 36.7; O2SAT 95
[2021-01-18 17:05] VITALS: BP 143/69; PULSE 98; RESP 16; TEMP 36.6; O2SAT 95
== END 2021-01-18 17:05 | disposition home or self-care (01) ==
LOC: MS3OUT 15:13 → MS3 15:15
PROVIDERS: Referring Provider Nurse Practitioner Adult Health; Visit Provider Nurse Practitioner Adult Health
DX: Z23 Encounter for immunization (principal); U07.1 COVID-19
CPT/HCPCS: J7050; M0243; A4216; Q0240

== ENCOUNTER 2021-01-19 10:21 | Inpatient (IN) | payer MEDICARE, MEDICAID, SELFPAY ==
[2021-01-19] VITALS (12 sets, daily range): BP systolic 114–151; BP diastolic 61–72; PULSE 77–112; RESP 20–42; TEMP 36.4–36.8; O2SAT 85–96; BMI 37.2; BMI 35.5
--- NOTE | 2021-01-19 10:35 | RAD_ITS ---
STUDY: X-RAY CHEST REASON FOR EXAM: Male, 65 years old. cough TECHNIQUE: Single AP portable view of the chest. COMPARISON: 01/21/2019 FINDINGS: Alveolar opacity in the lower left lung consistent with left lower lobe pneumonia. Elevated right hemidiaphragm. Normal size heart. Normal mediastinum and diane. Normal visualized pulmonary arteries. Normal visualized aortic arch and descending thoracic aorta. Normal visualized thoracic spine. Normal visualized ribs, clavicles, and shoulders. There is no demonstrated abnormality of the visualized soft tissue structures of the upper abdomen. RAD/Chest 1 View (Portable) IMPRESSION: Left lower lobe pneumonia. Electronically Signed: Master Pederson MD at 11:52 EDT Tel , Service support ,
--- NOTE | 2021-01-19 10:35 | EKG12_ITS ---
Test Reason : Blood Pressure : / mmHG Vent. Rate : 106 BPM Atrial Rate : 106 BPM P-R Int : 142 ms QRS Dur : 092 ms QT Int : 348 ms P-R-T Axes : 033 -26 030 degrees QTc Int : 462 ms Sinus tachycardia Otherwise normal ECG Confirmed by KERRY SALAZAR, ALICIA ([id number]), editorial project manager BOBBY PHELAN ([id number]) on 01/22/2021 9:41:06 AM Referred By: RENÉ Confirmed By:ALICIA PAYNE MD
[2021-01-19] MEDS: Ipratropium/Albuterol Sulfate 3 ML AMPUL.NEB INHALATION (11:00)
--- NOTE | 2021-01-19 11:04 | ED.VIS.DYS ---
HPI History of Present Illness Chief Complaint: Shortness of Breath Informant: patient Narrative Narrative: This is a reasonably healthy patient who does have a history of hypertension. Questionable low-grade prostate cancer. He started with Covid symptoms somewhere around 9 or 10 days ago. This was about the time he got his first ever Pfizer vaccine. It is hard to state when his reaction of the vaccine started and when his Covid actually started because of this. He was diagnosed with Covid on the fourth of this month. He received monoclonal antibody therapy yesterday. He states after the monoclonal antibody therapy, he seemed to feel better when he first went home. But later that night he started to feel more short of breath. It is gotten progressively worse. He is not having chest pain or pressure. He coughs but really does not have sputum production. He is not eating or drinking much because of no appetite. He is not having nausea or vomiting but he is having some diarrhea without blood. No abdominal pain. No history of DVT or PE. No known risk factors. His concern is that he seems to be worsening after monoclonal therapy rather than improving. Nothing specifically makes his symptoms better or worse. [facility] Medical History Hypertension Home Medications meloxicam 7.5 mg tablet 7.5 mg PO BID tab 06/21/18 [History Last Taken Unknown] cholecalciferol (vitamin D3) 1,250 mcg (50,000 unit) capsule 50,000 unit PO QWEEK #4 cap 01/10/19 [History Last Taken Unknown] lisinopril 20 mg-hydrochlorothiazide 25 mg tablet 1 tab PO DAILY #30 tab 01/10/19 [History Last Taken Unknown] tamsulosin 0.4 mg capsule 0.4 mg PO DAILY #30 cap 01/10/19 [History Last Taken Unknown] metoprolol tartrate 25 mg tablet 25 mg PO DAILY 04/27/20 [History Last Taken Unknown] aspirin 81 mg tablet,delayed release 81 mg PO .every other day tablet 07/11/20 [History Last Taken Unknown] cetirizine 10 mg tablet 10 mg PO DAILY 07/11/20 [History Last Taken Unknown] Allergy/AdvReac Type Severity Reaction Status Date / Time streptomycin Allergy Other Verified 01/19/21 12:25 Social History Smoking Status: Never smoker ROS ROS ED Constitutional Constitutional ED: Reports chills and fever(s) Eyes Eyes: Denies blurry vision or change in vision ENT ENT ED: Reports rhinorrhea; Denies ear pain or sore throat Cardiovascular Cardiovascular: Denies chest pain or palpitations Respiratory/Chest Respiratory/Chest: Reports cough, dyspnea and dyspnea on exertion; Denies sputum Gastrointestinal Gastrointestinal: Reports diarrhea; Denies abdominal pain, nausea or vomiting Genitourinary Genitourinary ED: Denies dysuria or hematuria Musculoskeletal Musculoskeletal: Reports myalgias Integumentary Denies rash Neurologic Neurologic: Denies headache(s), paresthesias or weakness Psychiatric Psychiatric: Denies anxiety or depression Endocrine Endocrinology: Denies polydipsia or polyuria Hematologic/Lymphatic Hematologic/Lymphatic: Denies easy bruising Allergic/Immunologic Allergic/Immunologic ED: Denies mouth swelling or urticaria EXAM Physical Exam Const Vital Signs: 01/19/21 10:22 01/19/21 11:00 01/19/21 11:22 Temperature 97.6 F L Temperature Source Temporal Pulse Rate 107 H 79 109 H Respiratory Rate 26 H 20 H 26 H Respiratory Effort Respiratory Depth Respiratory Pattern Normal Blood Pressure 151/69 H 121/61 H Blood Pressure Mean 96 81 Pulse Ox 89 96 Pulse Ox [AMBULATING on Room Air] Pulse Ox [AMBULATING with Oxygen #1] Pulse Ox [AMBULATING with Oxygen #2] Pulse Ox [At REST on Room Air] Pulse Ox [At REST with Oxygen] Oxygen Delivery Method Room Air Nasal Cannula Oxygen Flow Rate (L/min) 2 Oxygen Flow Rate (L/min) [AMBULATING with Oxygen #1] Oxygen Flow Rate (L/min) [AMBULATING with Oxygen #2] Oxygen Flow Rate (L/min) [At REST with Oxygen] 01/19/21 11:25 01/19/21 11:45 01/19/21 12:57 Temperature 97.9 F 98.0 F Temperature Source Oral Oral Pulse Rate 109 H 107 H Respiratory Rate 35 H 39 H Respiratory Effort Short of Breath Respiratory Depth Shallow Respiratory Pattern Tachypnea Blood Pressure 121/61 H 138/67 H Blood Pressure Mean 81 90 Pulse Ox 94 93 Pulse Ox [AMBULATING on Room Air] Pulse Ox [AMBULATING with Oxygen #1] Pulse Ox [AMBULATING with Oxygen #2] Pulse Ox [At REST on Room Air] Pulse Ox [At REST with Oxygen] Oxygen Delivery Method Nasal Cannula Nasal Cannula Nasal Cannula Oxygen Flow Rate (L/min) 2 2 2 Oxygen Flow Rate (L/min) [AMBULATING with Oxygen #1] Oxygen Flow Rate (L/min) [AMBULATING with Oxygen #2] Oxygen Flow Rate (L/min) [At REST with Oxygen] 01/19/21 13:00 01/19/21 13:58 Temperature 98.2 F Temperature Source Oral Pulse Rate 109 H Respiratory Rate 30 H Respiratory Effort Respiratory Depth Respiratory Pattern Blood Pressure 116/72 Blood Pressure Mean 86 Pulse Ox 95 Pulse Ox [AMBULATING on Room Air] 85 Pulse Ox [AMBULATING with Oxygen #1] 88 Pulse Ox [AMBULATING with Oxygen #2] 90 Pulse Ox [At REST on Room Air] 92 Pulse Ox [At REST with Oxygen] 94 Oxygen Delivery Method Nasal Cannula Oxygen Flow Rate (L/min) 2 Oxygen Flow Rate (L/min) [AMBULATING with Oxygen #1] 2 Oxygen Flow Rate (L/min) [AMBULATING with Oxygen #2] 4 Oxygen Flow Rate (L/min) [At REST with Oxygen] 2 Patient looks like he does not feel well. He looks mildly ill but not acutely ill or toxic. His initial O2 saturation is 89% on the vitals. However, in the room he had an excellent waveform at 86%. Positive well nourished and well developed General Appearance ED: well developed HEENT Reports dry mucous membranes HEENT Narrative: Mildly dry mucous membranes. atraumatic Mouth ED: Yes dry mucous membranes Mouth: dry mucous membranes Eyes General Eye ED: Negative for pale conjunctiva or scleral icterus Neck no meningeal signs and no JVD Resp No normal respiratory effort Resp Narrative: Slightly increased respiratory effort. Mild rhonchi mostly at the bases. Auscultation: rhonchi Cardio regular rhythm Rate: tachycardic GI non-tender and non-distended Palpation: soft Back/Spine no CVA tenderness Extremity General Extremety ED: Negative for edema or tenderness General Extremity: Negative for edema Neuro oriented x3 Sensorium / Orientation: alert Psych mental status grossly normal Skin Lesions: no lesions Rashes: no rashes MDM MDM MDM Narrative Medical decision making narrative: Patient's white count is okay. D-dimer was elevated. This was done because he seems to have worsening toward the end of Covid after he has had immunotherapy. Potassium was slightly low. Lactate was normal. X-ray showed findings consistent with Covid. Because he had tachycardia, dyspnea and worsening after treatment for Covid, we did do CTA that showed extensive pulmonary changes more on the left. No sign of pulmonary embolus. We walked him. On 4 L just moving up off the bed he had 88%. I do not think this is a good candidate to go home. He will need more than 4 L of oxygen. I have hospitalist on page. I will discuss with them consideration of antibiotics. Although this is likely Covid, he does have significant findings more on the left than the right. When I talk with the hospitalist, they will do some further testing and decide about adding antibiotics or holding off and treating this as Covid. Lab Data Attestation: I reviewed the patient's lab results. Labs: Laboratory Results - last 24 hr 01/19/21 01/19/21 01/19/21 10:56 10:56 10:56 WBC 7.0 RBC 5.01 Hgb 14.8 Hct 44.3 MCV 88.4 MCH 29.5 MCHC 33.4 RDW Std Deviation 42.8 RDW Coeff of Krystle 13.2 Plt Count 277 MPV 9.5 Immature Gran % (Auto) 0.600 Neut % (Auto) 79.8 H Lymph % (Auto) 9.9 L [place] % (Auto) 8.7 Eos % (Auto) 0.9 Baso % (Auto) 0.1 Absolute Neuts (auto) 5.6 Absolute Lymphs (auto) 0.69 L Nucleated RBC % 0 D-Dimer Quant (PE/DVT) 1.72 H* Sodium 139 Potassium 3.2 L Chloride 103 Carbon Dioxide 27.0 Anion Gap 9 BUN 35 H Creatinine 1.19 Estim Creat Clear Calc 64.16 Est GFR (MDRD) Af Amer 78 Est GFR (MDRD) Non-Af 65 BUN/Creatinine Ratio 29.4 H Glucose 104 Lactic Acid Calcium 9.2 Total Bilirubin 2.10 H AST 40 H ALT 69 H Alkaline Phosphatase 66 Total Protein 7.9 Albumin 3.0 L Globulin 4.9 H Albumin/Globulin Ratio 0.6 L 01/19/21 10:56 WBC RBC Hgb Hct MCV MCH MCHC RDW Std Deviation RDW Coeff of Krystle Plt Count MPV Immature Gran % (Auto) Neut % (Auto) Lymph % (Auto) [place] % (Auto) Eos % (Auto) Baso % (Auto) Absolute Neuts (auto) Absolute Lymphs (auto) Nucleated RBC % D-Dimer Quant (PE/DVT) Sodium Potassium Chloride Carbon Dioxide Anion Gap BUN Creatinine Estim Creat Clear Calc Est GFR (MDRD) Af Amer Est GFR (MDRD) Non-Af BUN/Creatinine Ratio Glucose Lactic Acid 1.6 Calcium Total Bilirubin AST ALT Alkaline Phosphatase Total Protein Albumin Globulin Albumin/Globulin Ratio Radiography Diagnostic Testing: Clinical Impression(s) from Imaging Studies Chest X-Ray 01/19/21 10:35 IMPRESSION: Left lower lobe pneumonia. Electronically Signed: Master Pederson MD at 11:52 EDT Tel , Service support , Chest CTA 01/19/21 11:29 IMPRESSION: 1. No CT evidence of pulmonary embolism. 2. Extensive left-sided pneumonia. 3. Some right lower lobe atelectasis. Electronically Signed: Master Pederson MD at 12:07 EDT Tel , Service support , EKG Initial EKG: Comments: EKG done for dyspnea and tachycardia read by me shows sinus rhythm with tachycardic rate of 106. No ectopy. No acute ST elevation or depression. MO interval, QRS duration and QTc are normal. Discharge Plan Dx/Rx/DC Orders Clinical Impression: Pneumonia due to 2019 novel coronavirus, Acute respiratory failure with hypoxia Disposition Disposition: Acute Care Hospital [facility]
[2021-01-19 11:10] LABS: Absolute Lymphocyte Count 0.69 X10^3/uL (0.83-4.51); Absolute Neutrophil Count 5.6 X10^3/uL (2.0-7.7); Basophil# 0.01 X10^3/uL; Basophil% 0.1 % (0-1); Eosinophil# 0.06 X10^3/uL; Eosinophils% 0.9 % (0-5); Hematocrit 44.3 % (40-54); Hemoglobin 14.8 g/dL (13.0-16.5); Lymphocyte # 0.69 X10^3/ul (0.83-4.51); Lymphocyte % 9.9 % (19-41); Mean Corp Hgb Conc 33.4 g/dL (32-36); Mean Corpuscular Hgb 29.5 pg (27.0-32.0); Mean Corpuscular Volume 88.4 fL (80-94); Mean Platelet Vol. 9.5 fl (6.2-12.0); Monocyte# 0.61 X10^3/uL; Monocyte% 8.7 % (0-10); NRBC Flagged by Analyzer 0 % (0-5); Neutrophil # 5.57 X10^3/uL (2.7-7.7); Neutrophil % 79.8 % (47-70); Platelet Count 277 K/mm3 (150-450); RBC Distribution Width CV 13.2 % (11.6-14.6); RBC Distribution Width SD 42.8 fl (35.1-43.9); Red Blood Count 5.01 M/mm3 (4.6-6.2)
[2021-01-19 11:23] LABS: D-Dimer Quantitative (DVT/PE) 1.72 FEU/ug/m (0.27-0.49)
[2021-01-19 11:24] LABS: ALB/GLOB Ratio 0.6 RATIO (0.9-2.4); AST(SGOT) 40 U/L (15-37); Alanine Aminotransfer ALT/SGPT 69 U/L (16-61); Alkaline Phosphatase 66 U/L (45-117); Anion Gap 9 (5-15); BUN 35 mg/dL (7-18); BUN/Creat Ratio 29.4 RATIO (10-20); Calcium,Total 9.2 mg/dL (8.5-10.1); Chloride 103 mmol/L (98-107); Creatinine, Serum 1.19 mg/dL (0.70-1.30); EST Glomerular Filtration Rate 65 mL/min (>60); Est Glom Filt Rate - Afr Amer 78 mL/min (>60); Estimated Creatinine Clearance 64.16 ml/min; Globulin 4.9 g/dL (2.2-4.2); Glucose 104 mg/dL (74-106); Potassium 3.2 mmol/L (3.5-5.1); Protein, Total 7.9 g/dL (6.4-8.2); Sodium Level 139 mmol/L (136-145)
--- NOTE | 2021-01-19 11:29 | CT_ITS ---
STUDY: CTA CHEST REASON FOR EXAM: Male, 65 years old. SOB, elevated D-Dimer RADIATION DOSAGE (If Supplied By Facility): CTDIvol = ( 12.66 ) mGy, DLP = ( 473.66 ) mGycm TECHNIQUE: The examination was performed with the intravenous administration of IV 100mL [id number]-370. Post-processing of the angiographic images was performed, with multiplanar reformation and 3D reconstruction. Individualized dose optimization techniques were used for this CT. COMPARISON: Chest x-ray 01/19/2021 FINDINGS: Normal enhancement of the main pulmonary artery and right and left pulmonary arteries. Normal enhancement of the bilateral peripheral pulmonary arteries. There is no demonstrated pulmonary embolism. Normal thoracic aorta and visualized great vessels. There is no demonstrated aortic dissection. Normal heart and pericardium. Normal mediastinum. Normal hilar regions. Normal visualized trachea and bronchi. The lungs are well expanded. Alveolar opacity throughout the left lung consistent with left-sided pneumonia. Some right lower lobe atelectasis. Normal pleura. Normal chest wall structures. Normal osseous structures. Normal visualized upper abdomen. CT/CTA Chest W/WO Contrast IMPRESSION: 1. No CT evidence of pulmonary embolism. 2. Extensive left-sided pneumonia. 3. Some right lower lobe atelectasis. Electronically Signed: Master Pederson MD at 12:07 EDT Tel , Service support ,
[2021-01-19 11:35] LABS: Lactic Acid 1.6 mmol/L (0.4-1.9)
--- NOTE | 2021-01-19 13:50 | HP.PCM.HOS_ITS ---
HPI - General General Date of Admission: 01/19/21 Date of Service: 01/19/21 Chief Complaint: COVID +, worsening dyspnea, hypoxia. HPI Narrative The patient is a 65 y/o M w/ PMHx: HTN, Obesity, Allergic rhinitis, BPH who presents to the [facility] ED on 01/19/21 with history of original onset of Covid type symptoms 01/09/2021 with fatigue, malaise and then proceeded with his arranged initial COVID Pfizer vaccination with then positive testing 01/10/2021 with monoclonal antibody administration on 01/18/21, initially felt improved however quickly felt progressively worsen with increased cough, malaise, fatigue and dyspnea prompting ED evaluation. He notes during the course of his illness he has had chills, body aches, cough, shortness of breath, diarrhea with significantly reduced appetite. Work-up in the ED included T 97.6, heart rate 107, BP 151/69, respiratory rate 2242, initially 89% on room air eventually noted to be 90% on 2 L nasal cannula with ambulation trial notable for eventual 88% at 2 L and eventually bumping up to 90% on 4 L, CBC with WBC 7, hemoglobin 14.8, platelet 277 with lymphopenia, D-dimer 1.72, CMP with potassium 3.2, BUN/creatinine 35/1.19, lactic acid 1.6, total bilirubin 2.10, AST/ALT 40/69, chest x-ray with left lower lobe pneumonia, follow-up CTPA with no evidence of pulmonary embolism with extensive left-sided pneumonia and right lower lobe atelectasis also, blood culture x2 pending per ED. in the ED patient ministered tachycardia on 6 mg IV x1 as well as DuoNeb therapy and 1 L normal saline bolus. [facility]LY [facility] Medical History (Updated 01/19/21 @ 15:[address] Yaima Cole MD) Allergic rhinitis BPH (benign prostatic hyperplasia) Class 2 obesity due to excess calories without serious comorbidity with body mass index (BMI) of 39.0 to 39.9 in adult Hypertension Primary osteoarthritis of right knee Home Medications meloxicam 7.5 mg tablet 7.5 mg PO BID tab 06/21/18 [History Last Taken Unknown] cholecalciferol (vitamin D3) 1,250 mcg (50,000 unit) capsule 50,000 unit PO QWEEK #4 cap 01/10/19 [History Last Taken Unknown] lisinopril 20 mg-hydrochlorothiazide 25 mg tablet 1 tab PO DAILY #30 tab 0 01/10/19 [History Last Taken Unknown] tamsulosin 0.4 mg capsule 0.4 mg PO DAILY #30 cap 01/10/19 [History Last Taken Unknown] metoprolol tartrate 25 mg tablet 25 mg PO DAILY 04/27/20 [History Last Taken Unknown] aspirin 81 mg tablet,delayed release 81 mg PO .every other day tablet 07/11/20 [History Last Taken Unknown] cetirizine 10 mg tablet 10 mg PO DAILY 07/11/20 [History Last Taken Unknown] Allergy/AdvReac Type Severity Reaction Status Date / Time streptomycin Allergy Other Verified 01/19/21 12:25 Family History (Updated 01/19/21 @ 15:[address] Yaima Cole MD) Mother Cancer Father Cancer Surgical History (Updated 01/19/21 @ 15:[address] Yaima Cole MD) S/P appendectomy Status post surgical removal of malignant neoplasm of skin Social History (Updated 01/19/21 @ 15:[address] Yaima Cole MD) household members: other details: Patient lives with his son. Smoking Status: Never smoker alcohol intake: never substance use type: does not use ROS ROS Narrative Admission Review of Systems: CONSTITUTIONAL: No weight loss, fever, + chills, weakness or fatigue. HEENT: + Headache. Eyes: No visual loss, blurred vision, double vision or yellow sclerae. Ears, Nose, Throat: No hearing loss, sneezing, sore throat. SKIN: No rash or itching, lesions, wounds. CARDIOVASCULAR: No chest pain, chest pressure or chest discomfort, palpitations, edema, orthopnea, syncopal events. RESPIRATORY: + shortness of breath, cough without sputum, No wheezing, hemop tysis. GASTROINTESTINAL: + anorexia, diarrhea, No nausea, vomiting, abdominal pain, melena, BRBPR. GENITOURINARY: No dysuria, frequency, urgency or retention. NEUROLOGICAL: headache, No dizziness, syncope, paralysis, ataxia, numbness or tingling in the extremities, focal weakness, change in bowel or bladder control, seizure. MUSCULOSKELETAL: + muscle, back pain, joint pain or stiffness. HEMATOLOGIC: No anemia, bleeding or bruising. LYMPHATICS: No enlarged nodes. No history of splenectomy. PSYCHIATRIC: No history of depression or anxiety. ENDOCRINOLOGIC: No reports of sweating, cold or heat intolerance. No polyuria or polydipsia. ALLERGIES: + history of asthma, hives, eczema or rhinitis. Vital Signs Vital Signs Vital Signs: 01/19/21 10:22 01/19/21 11:00 01/19/21 11:22 Temperature 97.6 F L Temperature Source Temporal Pulse Rate 107 H 79 109 H Respiratory Rate 26 H 20 H 26 H Respiratory Effort Respiratory Depth Respiratory Pattern Normal Blood Pressure 151/69 H 121/61 H Blood Pressure Mean 96 81 Pulse Ox 89 96 Pulse Ox [AMBULATING on Room Air] Pulse Ox [AMBULATING with Oxygen #1] Pulse Ox [AMBULATING with Oxygen #2] Pulse Ox [At REST on Room Air] Pulse Ox [At REST with Oxygen] Oxygen Delivery Method Room Air Nasal Cannula Oxygen Flow Rate (L/min) 2 Oxygen Flow Rate (L/min) [AMBULATING with Oxygen #1] Oxygen Flow Rate (L/min) [AMBULATING with Oxygen #2] Oxygen Flow Rate (L/min) [At REST with Oxygen] 01/19/21 11:25 01/19/21 11:45 01/19/21 12:57 Temperature 97.9 F 98.0 F Temperature Source Oral Oral Pulse Rate 109 H 107 H Respiratory Rate 35 H 39 H Respiratory Effort Short of Breath Respiratory Depth Shallow Respiratory Pattern Tachypnea Blood Pressure 121/61 H 138/67 H Blood Pressure Mean 81 90 Pulse Ox 94 93 Pulse Ox [AMBULATING on Room Air] Pulse Ox [AMBULATING with Oxygen #1] Pulse Ox [AMBULATING with Oxygen #2] Pulse Ox [At REST on Room Air] Pulse Ox [At REST with Oxygen] Oxygen Delivery Method Nasal Cannula Nasal Cannula Nasal Cannula Oxygen Flow Rate (L/min) 2 2 2 Oxygen Flow Rate (L/min) [AMBULATING with Oxygen #1] Oxygen Flow Rate (L/min) [AMBULATING with Oxygen #2] Oxygen Flow Rate (L/min) [At REST with Oxygen] 01/19/21 13:00 Temperature Temperature Source Pulse Rate Respiratory Rate Respiratory Effort Respiratory Depth Respiratory Pattern Blood Pressure Blood Pressure Mean Pulse Ox Pulse Ox [AMBULATING on Room Air] 85 Pulse Ox [AMBULATING with Oxygen #1] 88 Pulse Ox [AMBULATING with Oxygen #2] 90 Pulse Ox [At REST on Room Air] 92 Pulse Ox [At REST with Oxygen] 94 Oxygen Delivery Method Oxygen Flow Rate (L/min) Oxygen Flow Rate (L/min) [AMBULATING with Oxygen #1] 2 Oxygen Flow Rate (L/min) [AMBULATING with Oxygen #2] 4 Oxygen Flow Rate (L/min) [At REST with Oxygen] 2 Weight Weight: 267 lb Body Mass Index (BMI) 37.2 Physical Exam Narrative Physical Examination: General: Awake, alert, oriented x 3 and cooperative, seated upright in the ED bed, fatigued, ill-appearing. Skin: Normal color, normal turgor, no icterus, no cyanosis. HEENT: AT/NC, EOMI, PERRLA, dry MM, no carotid bruits or JVD noted. Lungs: Diffusely diminished, greater bases, increased respiratory rate, no rales, ronchi or wheezing. Heart: Mildly tachycardic with regular rhythm; no gallop, rub audible. Abdomen: Soft, obese, NTTP, difficult to discern distention given habitus, mildly hyperactive BS, no obvious evidence of HSM however habitus makes exam difficult Extremities: No cyanosis, clubbing, or edema. Neurological: Patient awake, alert, oriented as noted, cognitive function intact; pupils equally reactive to light and accommodation, cranial nerves II- XII grossly normal, moving all 4 extremities, no focal deficits, strength se verely globally decreased secondary to acute presentation. Psychiatric: Affect appears fatigued, ill-appearing, no acute evidence of depressive or anxiety feelings. Results Lab / Micro Data Result Diagrams: 01/19/21 10:56 01/19/21 10:56 Labs: Laboratory Results - last 24 hr 01/19/21 10:56: WBC 7.0, RBC 5.01, Hgb 14.8, Hct 44.3, MCV 88.4, MCH 29.5, MCHC 33.4, RDW Std Deviation 42.8, RDW Coeff of Krystle 13.2, Plt Count 277, MPV 9.5, Immature Gran % (Auto) 0.600, Neut % (Auto) 79.8 H, Lymph % (Auto) 9.9 L, [place] % (Auto) 8.7, Eos % (Auto) 0.9, Baso % (Auto) 0.1, Absolute Neuts (auto) 5.6, Absolute Lymphs (auto) 0.69 L, Nucleated RBC % 0 01/19/21 10:56: D-Dimer Quant (PE/DVT) 1.72 H* 01/19/21 10:56: Sodium 139, Potassium 3.2 L, Chloride 103, Carbon Dioxide 27.0, Anion Gap 9, BUN 35 H, Creatinine 1.19, Estim Creat Clear Calc 64.16, Est GFR (MDRD) Af Amer 78, Est GFR (MDRD) Non-Af 65, BUN/Creatinine Ratio 29.4 H, Glucose 104, Calcium 9.2, Total Bilirubin 2.10 H, AST 40 H, ALT 69 H, Alkaline Phosphatase 66, Total Protein 7.9, Albumin 3.0 L, Globulin 4.9 H, Albumin /Globulin Ratio 0.6 L 01/19/21 10:56: Lactic Acid 1.6 Radiology Impression Chest X-Ray 01/19/21 10:35 IMPRESSION: Left lower lobe pneumonia. Electronically Signed: Master Pederson MD at 11:52 EDT Tel , Service support , Chest CTA 01/19/21 11:29 IMPRESSION: 1. No CT evidence of pulmonary embolism. 2. Extensive left-sided pneumonia. 3. Some right lower lobe atelectasis. Electronically Signed: Master Pederson MD at 12:07 EDT Tel , Service support , Assessment & Plan Assessment/Plan (1) Pneumonia due to 2019 novel coronavirus: (2) COVID-19: PLAN: The patient is a 65 y/o M w/ PMHx: HTN, Obesity, Allergic rhinitis, BPH who presents to the [facility] ED on 01/19/21 with history of original onset of Covid type symptoms 01/09/2021 with fatigue, malaise and then proceeded with his arranged initial COVID Pfizer vaccination with then positive testing 01/10/2021 with monoclonal antibody administration on 01/18/21, initially felt improved however quickly felt progressively worsen with increased cough, malaise, fatigue and dyspnea prompting ED evaluation. 1. Acute Hypoxic secondary to Primarily LLL PNA, some findings c/w R sided Pneumonia concurrently secondary to Acute Viral Syndrome, COVID-19: Will admit to the [facility] telemetry floor, maintain on covid precautions, will maintain on oxygen with wean as tolerated to room air, PRN albuterol, HOB, IS parameters w/ pending sputum cultures, respiratory viral panel and urine antigens, will obtain procalcitonin, CRP, CPK, Ferritin, LDH, trop and BNP, continue supportive care including q 2 hour turning including prone given no prone bed availability and judicious hydration, closely monitor for worsening status for ARDS and multiorgan failure, will initiate and continue IV decadron x 10 doses, given presentation timeline he is just beyond the 10 day timeline thus will be unable to administer IV remdesivir. 2. Elevated bilirubin, LFTs: Secondary to #1, admission total bilirubin 2.10, AST/LT 40/69, will continue to to closely trend given remdesivir usage plan, may need to hold if further elevated or per ID discretion. 3. Hypokalemia: Admission K+ 3.2, magnesium level requested, supplementation given, repeat level in AM. 4. Hypertension: Continue home regimen including lisinopril, hydro chlorothiazide, metoprolol with hold parameters as needed, PRN hydralazine. 5. Obesity: Weight loss and lifestyle changes encouraged. 6. BPH: Will continue home flomax regimen. 7. Allergic Rhinitis: Will continue home cetirizine. 8. DVT prophylaxis: SCDs, Lovenox. 9. 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 Given acute presentation with hypoxia with Covid pneumonia, discussed CODE status at length including difference between FULL code, DNR-CCA and DNR-CC status. Following discussions about the differences in these status, requested Full Code status. Amenable to airvo and BIPAP usage. Advanced Care Planning Face to Face Time: 16 minutes. Charges/Coding Visit Charges Inpatient E&M: 55172 Init Hosp L3 Procedures Hospitalists Procedures: 78079 Advncd Care Plan 30 Min
[2021-01-19] MEDS: dexAMETHasone 10 MG/ML Vial 6 MG IV (13:54)
--- NOTE | 2021-01-19 14:07 | NURSING ---
MS YUDELKA CORREIA COVID, HTPOXIA
[2021-01-19 14:32] LABS: BNP,B-Type NATRIURETIC PEPTIDE 23.4 pg/mL (0-100)
[2021-01-19 14:49] LABS: Ferritin 5651 ng/mL (26-388); LDH 229 U/L (87-241); Magnesium 2.2 mg/dL (1.6-2.6); Troponin-I HS 12 pg/mL (3.0-78.0)
[2021-01-19] MEDS: 0.9% Normal Saline 1,000 ML 100 ML IV (15:52)
[2021-01-19] MEDS: Potassium Chloride Oral Tablet 20 MEQ 40 MEQ PO (15:52)
[2021-01-19] MEDS: Enoxaparin 40 MG/0.4 ML Syringe SC (20:49)
[2021-01-19] MEDS: Meloxicam 7.5 MG Tablet PO (20:49)
[2021-01-19] MEDS: Famotidine 20 MG Tablet PO (20:49)
--- NOTE | 2021-01-19 22:24 | PCS.PANDOC ---
PANDEMIC DOCUMENTATION INITIATED: Date: 01/19/21 Time: 1899
[2021-01-20] VITALS (12 sets, daily range): BP systolic 112–137; BP diastolic 68–82; PULSE 66–90; RESP 18–20; TEMP 35.7–36.8; O2SAT 92–97
[2021-01-20 06:42] LABS: Absolute Lymphocyte Count 0.47 X10^3/uL (0.83-4.51); Absolute Neutrophil Count 7.2 X10^3/uL (2.0-7.7); Basophil# 0.01 X10^3/uL; Basophil% 0.1 % (0-1); Hematocrit 43.1 % (40-54); Hemoglobin 14.3 g/dL (13.0-16.5); Lymphocyte # 0.47 X10^3/ul (0.83-4.51); Lymphocyte % 5.6 % (19-41); Mean Corp Hgb Conc 33.2 g/dL (32-36); Mean Corpuscular Volume 90.5 fL (80-94); Mean Platelet Vol. 9.4 fl (6.2-12.0); Monocyte# 0.63 X10^3/uL; Monocyte% 7.5 % (0-10); NRBC Flagged by Analyzer 0 % (0-5); Neutrophil # 7.19 X10^3/uL (2.7-7.7); Neutrophil % 86.2 % (47-70); POSITIVE DIFFERENTIAL YES; Platelet Count 288 K/mm3 (150-450); RBC Distribution Width CV 13.2 % (11.6-14.6); Red Blood Count 4.76 M/mm3 (4.6-6.2); White Blood Count 8.4 K/mm3 (4.4-11.0)
[2021-01-20 07:13] LABS: ALB/GLOB Ratio 0.5 RATIO (0.9-2.4); AST(SGOT) 29 U/L (15-37); Alanine Aminotransfer ALT/SGPT 58 U/L (16-61); Albumin, Serum 2.5 g/dL (3.2-5.0); Alkaline Phosphatase 61 U/L (45-117); Anion Gap 10 (5-15); BUN 35 mg/dL (7-18); BUN/Creat Ratio 31.2 RATIO (10-20); Calcium,Total 8.9 mg/dL (8.5-10.1); Chloride 106 mmol/L (98-107); Creatinine, Serum 1.12 mg/dL (0.70-1.30); EST Glomerular Filtration Rate 70 mL/min (>60); Est Glom Filt Rate - Afr Amer 84 mL/min (>60); Estimated Creatinine Clearance 68.17 ml/min; Globulin 4.7 g/dL (2.2-4.2); Glucose 119 mg/dL (74-106); Potassium 3.7 mmol/L (3.5-5.1); Protein, Total 7.2 g/dL (6.4-8.2); Sodium Level 138 mmol/L (136-145)
[2021-01-20 07:15] LABS: Differential Indicated SCAN CRITERIA MET
[2021-01-20 07:38] LABS: Platelet Estimate ADEQUATE (ADEQ); Red Cell Morphology NORM C+C NORMAL (NORM C&C)
--- NOTE | 2021-01-20 07:49 | PN.HOSP_ITS ---
Subjective Subjective Patient is short of breath. Dyspnea on minimal to mild exertion. Has cough and chest tightness. Objective Data Objective Data Vital Signs: Vital Signs Temp Pulse Resp BP Pulse Ox 97.5 F L 76 20 H 114/70 97 01/20/21 03:03 01/20/21 07:00 01/20/21 03:03 01/20/21 03:03 01/20/21 03:03 Oxygen Flow Rate (L/min) [At 2 REST with Oxygen] Oxygen Flow Rate (L/min) [ 4 AMBULATING with Oxygen #2] Oxygen Flow Rate (L/min) [ 2 AMBULATING with Oxygen #1] Oxygen Flow Rate (L/min) 2 Oxygen Delivery Method Nasal Cannula Weight: 258 lb 6.108 oz Body Mass Index (BMI) 35.5 Intake & Output: Intake and Output for Last 24 Hours 01/18/21 01/19/21 01/20/21 23:59 23:59 23:59 Intake Total 500 / 500 1500 / 1500 Balance 500 / 500 1500 / 1500 Lab / Micro Data Result Diagrams: 01/20/21 06:08 01/20/21 06:08 Labs: Laboratory Results - last 24 hr 01/19/21 10:56: WBC 7.0, RBC 5.01, Hgb 14.8, Hct 44.3, MCV 88.4, MCH 29.5, MCHC 33.4, RDW Std Deviation 42.8, RDW Coeff of Krystle 13.2, Plt Count 277, MPV 9.5, Immature Gran % (Auto) 0.600, Neut % (Auto) 79.8 H, Lymph % (Auto) 9.9 L, [place] % (Auto) 8.7, Eos % (Auto) 0.9, Baso % (Auto) 0.1, Absolute Neuts (auto) 5.6, Absolute Lymphs (auto) 0.69 L, Nucleated RBC % 0 01/19/21 10:56: D-Dimer Quant (PE/DVT) 1.72 H* 01/19/21 10:56: Sodium 139, Potassium 3.2 L, Chloride 103, Carbon Dioxide 27.0, Anion Gap 9, BUN 35 H, Creatinine 1.19, Estim Creat Clear Calc 64.16, Est GFR (MDRD) Af Amer 78, Est GFR (MDRD) Non-Af 65, BUN/Creatinine Ratio 29.4 H, Glucose 104, Calcium 9.2, Total Bilirubin 2.10 H, AST 40 H, ALT 69 H, Alkaline Phosphatase 66, Total Protein 7.9, Albumin 3.0 L, Globulin 4.9 H, Albumin/Globulin Ratio 0.6 L 01/19/21 10:56: Lactic Acid 1.6 01/19/21 14:05: Magnesium 2.2, Ferritin 5651 H, Lactate Dehydrogenase 229, Troponin I High Sens 12, C-React Prot Ext Range 123.00 H 01/19/21 14:05: B-Natriuretic Peptide 23.4 01/19/21 14:05: Procalcitonin 0.10 H 01/20/21 06:08: WBC 8.4, RBC 4.76, Hgb 14.3, Hct 43.1, MCV 90.5, MCH 30.0, MCHC 33.2, RDW Std Deviation 44.0 H, RDW Coeff of Krystle 13.2, Plt Count 288, MPV 9.4, Immature Gran % (Auto) 0.600, Neut % (Auto) 86.2 H, Lymph % (Auto) 5.6 L, [place] % (Auto) 7.5, Eos % (Auto) 0.0, Baso % (Auto) 0.1, Absolute Neuts (auto) 7.2, Absolute Lymphs (auto) 0.47 L, Nucleated RBC % 0, Platelet Estimate ADEQUATE, RBC Morphology NORM C+C 01/20/21 06:08: Sodium 138, Potassium 3.7, Chloride 106, Carbon Dioxide 22.0, Anion Gap 10, BUN 35 H, Creatinine 1.12, Estim Creat Clear Calc 68.17, Est GFR (MDRD) Af Amer 84, Est GFR (MDRD) Non-Af 70, BUN/Creatinine Ratio 31.2 H, Glucose 119 H, Calcium 8.9, Total Bilirubin 1.40 H, AST 29, ALT 58, Alkaline Phosphatase 61, Total Protein 7.2, Albumin 2.5 L, Globulin 4.7 H, Albumin/Globulin Ratio 0.5 L Micro: Microbiology 01/19/21 14:50 Mucosa - Nose Respiratory Panel (PCR) - Final Radiography Diagnostic Testing: Radiology Impression Chest X-Ray 01/19/21 10:35 IMPRESSION: Left lower lobe pneumonia. Electronically Signed: Master Pederson MD at 11:52 EDT Tel , Service support , Chest CTA 01/19/21 11:29 IMPRESSION: 1. No CT evidence of pulmonary embolism. 2. Extensive left-sided pneumonia. 3. Some right lower lobe atelectasis. Electronically Signed: Master Pederson MD at 12:07 EDT Tel , Service support , Physical Exam Narrative General: Alert, Oriented x3, Cooperative, HEENT: Atraumatic, PERRLA, EOMI, Normocephalic Oral: No Gingival or Mucosal Lesions/ Ulcerations Neck: Supple, No JVD, Negative Carotid Bruits Lungs: Dyspnea on mild exertion. Air entry severely diminished bilaterally more on the left side. No crepitation/rhonchi Cardiovascular: Regular rate, Regular Rhythm, Normal S1, Normal S2, No murmurs Abdomen: Bowel Sounds Present, Soft, Non Tender, Non-Distended : No renal angle tenderness. No suprapubic tenderness. Extremities: No edema, Capillary Refill Less than 3 Seconds Skin: No rashes, No breakdown Musculoskeletal: No Tenderness to Palpation of Joints or Extremities Neurological: Cranial nerves II-XII grossly intact, DTR 2+/4 and Symmetrical, Neuro grossly intact Psych/Mental Status: Normal Affect, Appropriate. Assessment & Plan Assessment/Plan (1) Pneumonia due to 2019 novel coronavirus: (2) COVID-19: PLAN: The patient is a 65 y/o M with multiple comorbidities with Covid symptoms started on 01/09 with fatigue, malaise. Had Covid via Pfizer vaccination and was positive on 01/10. Patient had monoclonal antibody on 01/18 and then worsening of shortness of breath, cough and malaise. 1. Acute hypoxic respiratory failure secondary to bilateral COVID-19 pneumonia: Currently on 2 L of oxygen but patient looks more short of breath. CTPA no evidence of PE but extensive left-sided pneumonia and right lower lobe atelectasis. Respiratory panel negative. Urinary antigens for Streptococcus is negative. Inflammatory markers are elevated. On Decadron. Out of time window for IV remdesivir. ALT 69 repeat normal. Total bilirubin improved from 2.1- 1.4. Mild acute viral hepatitis due to COVID-19. 3. Hypokalemia: Repeat K normal. Hypokalemia resolved 4. Hypertension: Continue lisinopril, hydrochlorothiazide, metoprolol with hold parameters as needed, PRN hydralazine. 5. Obesity: Weight loss and lifestyle changes encouraged. 6. BPH: continue home flomax regimen. 7. Allergic Rhinitis: cetirizine. 8. DVT prophylaxis: SCDs, Lovenox. 9. CODE status: Full code. Charges/Coding Visit Charges Inpatient E&M: 37238 Subs Hosp L2
[2021-01-20] MEDS: Metoprolol Tartrate 25 MG Tablet PO (10:24)
[2021-01-20] MEDS: dexAMETHasone 10 MG/ML Vial 6 MG IV (10:24)
[2021-01-20] MEDS: Aspirin E.C. 81 MG Tablet PO (10:25)
[2021-01-20] MEDS: Enoxaparin 40 MG/0.4 ML Syringe SC ×2 (10:25→21:48)
[2021-01-20] MEDS: Loratadine 10 MG Tablet PO (10:25)
[2021-01-20] MEDS: Famotidine 20 MG Tablet PO ×2 (10:25→21:48)
[2021-01-20] MEDS: Meloxicam 7.5 MG Tablet PO ×2 (10:25→21:48)
[2021-01-20] MEDS: hydroCHLOROthiazide 25 MG Tablet PO (10:25)
[2021-01-20] MEDS: Tamsulosin HCl 0.4 MG Capsule PO (10:25)
[2021-01-20] MEDS: Lisinopril 20 MG Tablet PO (10:25)
[2021-01-20] MEDS: 0.9% Saline Lock 10 ML Syringe IV (10:26)
[2021-01-20] MEDS: Loperamide 2 MG Capsule PO ×2 (10:32→18:35)
[2021-01-20] MEDS: Acetaminophen 325 MG Tablet 650 MG PO (10:32)
[2021-01-20] MEDS: Menthol/Lanolin/Calamine/Znox 113 GM Tube 1 APPLIC TOPICAL ×3 (14:04→21:48)
[2021-01-20] MEDS: guaiFENesin 10 ML UDC (200MG/10ML) 20 ML PO (18:35)
[2021-01-21] VITALS (8 sets, daily range): BP systolic 110–129; BP diastolic 67–76; PULSE 58–87; RESP 18; TEMP 36.6–37.1; O2SAT 88–96
[2021-01-21] MEDS: Mag Hydrox/Al Hydrox/Simeth 30 ML UDC PO (04:00)
--- NOTE | 2021-01-21 08:13 | NURSING ---
PT DENIES NEEDS AT THIS TIME EXCEPT AN EXTRA PILLOW
[2021-01-21] MEDS: Tamsulosin HCl 0.4 MG Capsule PO (08:44)
[2021-01-21] MEDS: Loratadine 10 MG Tablet PO (08:44)
[2021-01-21] MEDS: Enoxaparin 40 MG/0.4 ML Syringe SC (08:44)
[2021-01-21] MEDS: hydroCHLOROthiazide 25 MG Tablet PO (08:44)
[2021-01-21] MEDS: Metoprolol Tartrate 25 MG Tablet PO (08:44)
[2021-01-21] MEDS: Meloxicam 7.5 MG Tablet PO (08:45)
[2021-01-21] MEDS: Aspirin E.C. 81 MG Tablet PO (08:45)
[2021-01-21] MEDS: dexAMETHasone 10 MG/ML Vial 6 MG IV (08:45)
[2021-01-21] MEDS: Famotidine 20 MG Tablet PO (08:45)
[2021-01-21] MEDS: Lisinopril 20 MG Tablet PO (08:45)
[2021-01-21] MEDS: Menthol/Lanolin/Calamine/Znox 113 GM Tube 1 APPLIC TOPICAL ×2 (08:46→15:30)
[2021-01-21] MEDS: 0.9% Saline Lock 10 ML Syringe IV (08:46)
--- NOTE | 2021-01-21 10:53 | DS.PCM_ITS ---
Providers Date of Admission: 01/19/21 Date of Discharge: 01/21/21 Primary Care Physician: MANNIE Tamayo Reason For Visit: COVID PNA, HYPOXIA Diagnosis Discharge Diagnosis (1) Pneumonia due to 2019 novel coronavirus: Status: Acute Code(s): U07.1 - COVID-19; J12.82 - Pneumonia due to coronavirus disease 2019 (2) COVID-19: Status: Acute Code(s): U07.1 - COVID-19 Medications at Discharge Home Medications cholecalciferol (vitamin D3) 1,250 mcg (50,000 unit) capsule 50,000 unit PO QWEEK #4 cap 01/10/19 lisinopril 20 mg-hydrochlorothiazide 25 mg tablet 1 tab PO DAILY #30 tab 01/10/19 tamsulosin 0.4 mg capsule 0.4 mg PO DAILY #30 cap 01/10/19 metoprolol tartrate 25 mg tablet 25 mg PO DAILY 04/27/20 aspirin 81 mg tablet,delayed release 81 mg PO .every other day tablet 07/11/20 cetirizine 10 mg tablet 10 mg PO DAILY 07/11/20 apixaban [Eliquis] 2.5 mg PO BID #30 tab 01/21/21 dexamethasone 6 mg PO DAILY #8 tab 01/21/21 guaifenesin [Mucus Relief ER] 1,200 mg PO BID #14 tab 01/21/21 meloxicam [Mobic] 7.5 mg PO DAILY PRN #0 tab 01/21/21 Hospital Course Summary of Care Provided Hospital Course: The patient is a 65 y/o M with multiple comorbidities with Covid symptoms started on 01/09 with fatigue, malaise. Had Covid via Pfizer vaccination and was positive on 01/10. Patient had monoclonal antibody on 01/18 and then worsening of shortness of breath, cough and malaise. 1. Acute hypoxic respiratory failure secondary to bilateral COVID-19 pneumonia: Currently on 2 L of oxygen but patient looks more short of breath. CTPA no evidence of PE but extensive left-sided pneumonia and right lower lobe atelectasis. Respiratory panel negative. Urinary antigens for Streptococcus is negative. Inflammatory markers are elevated. On Decadron. Out of time window for IV remdesivir. ALT 69 repeat normal. Total bilirubin improved from 2.1- 1.4. Mild acute viral hepatitis due to COVID-19. 3. Hypokalemia: Repeat K normal. Hypokalemia resolved 4. Hypertension: Continue lisinopril, hydrochlorothiazide, metoprolol with hold parameters as needed, PRN hydralazine. 5. Obesity: Weight loss and lifestyle changes encouraged. 6. BPH: continue home flomax regimen. 7. Allergic Rhinitis: cetirizine. 8. DVT prophylaxis: SCDs, Lovenox. 9. CODE status: Full code. Patient discharged home today. Discharged on dexamethasone, Mucinex and Eliquis. Discharge medication reconciliation done. Discharge follow-up instructions completed. Discharge process discussed with the patient and all questions were answered to patient's satisfaction. Total time spent, exact 35 minutes on discharge meds reconciliation, examination, coordination of care with nurses and ancillary staff, review of imaging and blood test and discussion with the patient on follow-up instructions Physical Exam Narrative General: Alert, Oriented x3, Cooperative, HEENT: Atraumatic, PERRLA, EOMI, Normocephalic Oral: No Gingival or Mucosal Lesions/ Ulcerations Neck: Supple, No JVD, Negative Carotid Bruits Lungs: Air entry diminished in bilateral lung bases. Dyspnea resolved. No crepitation/rhonchi Cardiovascular: Regular rate, Regular Rhythm, Normal S1, Normal S2, No murmurs Abdomen: Bowel Sounds Present, Soft, Non Tender, Non-Distended : No renal angle tenderness. No suprapubic tenderness. Extremities: No edema, Capillary Refill Less than 3 Seconds Skin: No rashes, No breakdown Musculoskeletal: No Tenderness to Palpation of Joints or Extremities Neurological: Cranial nerves II-XII grossly intact, DTR 2+/4 and Symmetrical, Neuro grossly intact Psych/Mental Status: Normal Affect, Appropriate. Weight / BMI Weight Weight: 258 lb 9.636 oz Body Mass Index (BMI) 35.5 ABG / Lab / Microbiology Data Result Diagrams: 01/20/21 06:08 01/20/21 06:08 Microbiology: Microbiology 01/20/21 10:46 Urine, Clean Catch Streptococcus pneumoniae Antigen (M - F inal 01/19/21 14:50 Mucosa - Nose Respiratory Panel (PCR) - Final Meaningful Use Info Meaningful Use Diagnoses (Choose all that apply): None applicable Discharge Plan Admission Admit Date/Time: 01/19/21 13:51 Attending Provider: Chris Lane Primary Care Provider: Marie Vilchis Instructions Additional Instructions / Restrictions: Self quarantine at home for 3 weeks since 01/09/2021 Discharge Orders/Prescriptions Prescriptions: New dexamethasone 6 mg tablet 6 mg PO DAILY Qty: 8 RF: 0 Eliquis 2.5 mg tablet 2.5 mg PO BID Qty: 30 RF: 0 Mucus Relief ER 1,200 mg tablet extended release 12hr 1,200 mg PO BID Qty: 14 RF: 0 Continued lisinopril-hydrochlorothiazide 20-25 mg tablet 1 tab PO DAILY Qty: 30 RF: 0 cholecalciferol (vitamin D3) 50,000 unit capsule 50,000 unit PO QWEEK Qty: 4 RF: 0 tamsulosin 0.4 mg capsule 0.4 mg PO DAILY Qty: 30 RF: 0 metoprolol tartrate 25 mg tablet 25 mg PO DAILY RF: 0 cetirizine 10 mg tablet 10 mg PO DAILY RF: 0 aspirin [Adult Low Dose Aspirin] 81 mg tablet,delayed release (DR/EC) 81 mg PO .every other day RF: 0 Changed meloxicam [Mobic] 7.5 mg tablet 7.5 mg PO DAILY PRN (Reason: arthritis pain) Qty: 0 RF: 0 Referrals / Follow Up: Marie Vilchis, [facility] [employer]IE[employer]-[facility] [Primary Care Provider] - In 1 Week Disposition Disposition (needs filled in before D/C Order can be placed): Home, Self Care Charges/Coding Visit Charges Inpatient E&M: 76997 Disch Hosp
--- NOTE | 2021-01-21 13:05 | CASEMGMT ---
JONATHAN SANDOVAL Assessment: Face to Face with pt for initial transition planning/care coordination assessment. RN JAIME introduced self and role at [facility], pt voices understanding and consents to assessment. Pt is A/O x4 and answers all questions appropriately at this time. Pt sitting up in chair with O2 on in no distress, nurse Sofia at bedside. Care providers, pharmacy, and demographics verified/updated. Admitting Dx: COVID PNA, hypoxia PCP:Marie Vilchis at [facility] Specialists: [place] Preferred Pharmacy: [facility] Retail Insurance: Martha HANCOCK [address] [employer] Prescription Benefit: yes LW/HPOA: Pt denies having a LW/DPOA and denies need for info regarding AD. LNOK: Sony Marcos, son Living Arrangements: Pt lives in a two story duplex with his son, monica and grandson. Pt reports being I in ADL's and denies concerns at home. Transportation: Pt drives self and denies concerns with transportation. DME/HHC/SNF: Pt denies having any DME, prior HHC or SNF stays. Pt states he was first tested for COVID at the [facility], the rest of the members of his household are negative. Pt states he is able to quarantine from his family by using separate bathrooms and bedrooms. He does have family who can provide him with groceries and supplies. Pt does qualify for home O2. Provided pt with a verbal list of local in network facilities, pt chose [employer]. 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 He denies use of alcohol, cigarettes, street drugs or illegal drugs. Pt states no concerns with going home at time of dc. Pt states no further concerns/needs. CM to follow. Advised pt to ask CM if any further question/concerns/needs arise, voices understanding. Pt Goal: Home Plan: Home
--- NOTE | 2021-01-21 13:36 | CASEMGMT ---
Faxed O2 referral to hakan Bolden to Anastacia to make aware of referral and need for portable O2.
--- NOTE | 2021-01-21 16:04 | CASEMGMT ---
Social Work Note SW received call from Anastacia at [facility] stating tanks were delivered to [facility] and wanted to confirm that pt got one of the tanks. MARCO looked at Oxygen tanks, one of the tanks has pt's room number on the tanks so pt will get one of the tanks that were delivered to [facility]. MARCO updated Anastacia of this at [facility]. Laila Currie ICU REGISTERED NURSE, OIL AND GAS SPECIALIST
--- NOTE | 2021-01-22 13:45 | CASEMGMT ---
RN CM Discharge Follow Up Phone Call: LACE: 5 Strata:1 Call Date: 01/22/21 Discharge Date: 01/21/21 Time of Call:1345 Duration:<1 min Admitting Dx:COVID PNA, hypoxia RN JAIME attempted to complete follow up phone call after recent hospitalization. No answer to unidentified voicemail. No message left.
== END 2021-01-21 16:35 | disposition home or self-care (01) | DRG 177 ==
LOC: ED 13:48 → MS3 14:23
PROVIDERS: Admitting Provider Family Medicine; Emergency Provider Emergency Medicine; PCP Nurse Practitioner Adult Health; Visit Provider Internal Medicine
DX: U07.1 COVID-19 (principal); J12.82 Pneumonia due to coronavirus disease 2019; J96.01 Acute respiratory failure with hypoxia; B17.9 Acute viral hepatitis, unspecified; E87.6 Hypokalemia; I10 Essential (primary) hypertension; E66.9 Obesity, unspecified; N40.0 Benign prostatic hyperplasia without lower urinary tract symptoms; J30.9 Allergic rhinitis, unspecified; Z79.899 Other long term (current) drug therapy; Z68.37 Body mass index [BMI] 37.0-37.9, adult
CPT/HCPCS: 36415; 71045; 71275; 80053; 82728; 83605; 83615; 83735; 83880; 84145; 84484; 85025; 85379; 86140; 87040; 87449; 87633; 93005; 94640; 94762; 99251; 99285; J7030; J7040; Q9967; A4216; G0463

== ENCOUNTER → 2021-02-05 09:09 | Outpatient (CLI) | payer MEDICARE, MEDICAID, SELFPAY ==
--- NOTE | 2021-02-05 09:25 | RAD_ITS ---
STUDY: X-RAY CHEST REASON FOR EXAM: Male, 65 years old. POST COVID TECHNIQUE: PA and lateral views of the chest. COMPARISON: Comparison is made with prior study dated 01/19/2021. FINDINGS: Stable pulmonary infiltrates in the left midlung and left lower lobe. Mild increased markings at the right lung base. There is no demonstrated pleural abnormality. Normal size heart. Normal mediastinum and diane. Normal visualized pulmonary arteries. There is atherosclerotic calcification of the aortic arch with tortuosity. There are diffuse degenerative changes of the visualized thoracic spine. Normal visualized ribs, clavicles, and shoulders. There is no demonstrated abnormality of the visualized soft tissue structures of the upper abdomen. RAD/Chest PA and Lateral IMPRESSION: Persistent stable infiltrate in the left lung with mild increased markings at the right lung base. Electronically Signed: Cecilio Cabral MD at 13:15 EDT , Service support ,
[2021-02-05 09:50] LABS: Absolute Lymphocyte Count 1.42 X10^3/uL (0.83-4.51); Absolute Neutrophil Count 4.4 X10^3/uL (2.0-7.7); Basophil# 0.03 X10^3/uL; Basophil% 0.4 % (0-1); Eosinophil# 0.24 X10^3/uL; Eosinophils% 3.5 % (0-5); Hematocrit 45.6 % (40-54); Hemoglobin 14.9 g/dL (13.0-16.5); Lymphocyte # 1.42 X10^3/ul (0.83-4.51); Lymphocyte % 20.8 % (19-41); Mean Corp Hgb Conc 32.7 g/dL (32-36); Mean Corpuscular Hgb 29.6 pg (27.0-32.0); Mean Corpuscular Volume 90.5 fL (80-94); Mean Platelet Vol. 9.2 fl (6.2-12.0); Monocyte# 0.72 X10^3/uL; Monocyte% 10.5 % (0-10); NRBC Flagged by Analyzer 0 % (0-5); Neutrophil # 4.41 X10^3/uL (2.7-7.7); Neutrophil % 64.7 % (47-70); Platelet Count 184 K/mm3 (150-450); RBC Distribution Width CV 13.4 % (11.6-14.6); RBC Distribution Width SD 44.6 fl (35.1-43.9); Red Blood Count 5.04 M/mm3 (4.6-6.2); White Blood Count 6.8 K/mm3 (4.4-11.0)
[2021-02-05 10:21] LABS: Vitamin B12 446 pg/mL (211-911)
[2021-02-05 10:23] LABS: ALB/GLOB Ratio 0.7 RATIO (0.9-2.4); AST(SGOT) 21 U/L (15-37); Alanine Aminotransfer ALT/SGPT 54 U/L (16-61); Albumin, Serum 3.1 g/dL (3.2-5.0); Alkaline Phosphatase 80 U/L (45-117); Anion Gap 6 (5-15); BUN 18 mg/dL (7-18); BUN/Creat Ratio 13.7 RATIO (10-20); Chloride 102 mmol/L (98-107); Creatinine, Serum 1.31 mg/dL (0.70-1.30); EST Glomerular Filtration Rate 58 mL/min (>60); Est Glom Filt Rate - Afr Amer 70 mL/min (>60); Globulin 4.3 g/dL (2.2-4.2); Glucose 97 mg/dL (74-106); Iron 141 ug/dL (65-175); Iron Binding Capacity,Total 411 ug/dL (250-450); PERCENT IRON SATURATION 34.3 % (15.0-55.0); Potassium 4.3 mmol/L (3.5-5.1); Protein, Total 7.4 g/dL (6.4-8.2); Sodium Level 136 mmol/L (136-145)
== END ==
PROVIDERS: PCP Nurse Practitioner Adult Health; Visit Provider Nurse Practitioner Adult Health
DX: U09.9 Post COVID-19 condition, unspecified (principal)
CPT/HCPCS: 36415; 71046; 80053; 82607; 83540; 83550; 85025

== ENCOUNTER → 2021-02-11 09:01 | Outpatient (CLI) | payer MEDICARE, MEDICAID, SELFPAY ==
--- NOTE | 2021-02-11 09:04 | EKG12_ITS ---
Test Reason : TACHY Blood Pressure : / mmHG Vent. Rate : 075 BPM Atrial Rate : 075 BPM P-R Int : 134 ms QRS Dur : 078 ms QT Int : 336 ms P-R-T Axes : 001 -19 029 degrees QTc Int : 375 ms Normal sinus rhythm Normal ECG Confirmed by ADRIANA SALAZAR, KHADIJAH ([id number]), newspaper managing editor BOBBY PHELAN ([id number]) on 02/12/2021 9:51:25 AM Referred By: Marie Vilchis Confirmed By:KHADIJAH WRIGHT MD
== END ==
PROVIDERS: PCP Nurse Practitioner Adult Health; Referring Provider Nurse Practitioner Adult Health; Visit Provider Nurse Practitioner Adult Health
DX: R00.0 Tachycardia, unspecified (principal)
CPT/HCPCS: 93005

== ENCOUNTER 2021-06-08 06:59 | Outpatient (CLI) | payer MEDICARE, MEDICAID, SELFPAY ==
[2021-06-08 07:58] LABS: Absolute Lymphocyte Count 1.37 X10^3/uL (0.83-4.51); Absolute Neutrophil Count 8.2 X10^3/uL (2.0-7.7); Basophil# 0.01 X10^3/uL; Basophil% 0.1 % (0-1); Hematocrit 47.7 % (40-54); Hemoglobin 16.1 g/dL (13.0-16.5); Lymphocyte # 1.37 X10^3/ul (0.83-4.51); Lymphocyte % 13.2 % (19-41); Mean Corp Hgb Conc 33.8 g/dL (32-36); Mean Corpuscular Hgb 29.8 pg (27.0-32.0); Mean Corpuscular Volume 88.2 fL (80-94); Mean Platelet Vol. 9.6 fl (6.2-12.0); Monocyte# 0.74 X10^3/uL; Monocyte% 7.1 % (0-10); NRBC Flagged by Analyzer 0 % (0-5); Neutrophil # 8.18 X10^3/uL (2.7-7.7); Neutrophil % 79.1 % (47-70); Platelet Count 213 K/mm3 (150-450); RBC Distribution Width CV 13.3 % (11.6-14.6); RBC Distribution Width SD 42.9 fl (35.1-43.9); Red Blood Count 5.41 M/mm3 (4.6-6.2); White Blood Count 10.4 K/mm3 (4.4-11.0)
[2021-06-08 08:21] LABS: ALB/GLOB Ratio 1.1 RATIO (0.9-2.4); AST(SGOT) 12 U/L (15-37); Alanine Aminotransfer ALT/SGPT 23 U/L (16-61); Albumin, Serum 3.9 g/dL (3.2-5.0); Alkaline Phosphatase 82 U/L (45-117); Anion Gap 4 (5-15); BUN 30 mg/dL (7-18); Calcium,Total 9.9 mg/dL (8.5-10.1); Chloride 109 mmol/L (98-107); EST Glomerular Filtration Rate 64 mL/min (>60); Est Glom Filt Rate - Afr Amer 78 mL/min (>60); Globulin 3.6 g/dL (2.2-4.2); Glucose 100 mg/dL (74-106); Iron 103 ug/dL (65-175); Iron Binding Capacity,Total 325 ug/dL (250-450); Potassium 4.1 mmol/L (3.5-5.1); Protein, Total 7.5 g/dL (6.4-8.2); Sodium Level 140 mmol/L (136-145)
[2021-06-10 09:16] LABS: Vitamin B12 457 pg/mL (211-911)
== END 2021-06-08 23:59 | disposition home or self-care (01) ==
LOC: LAB 07:03
PROVIDERS: PCP Nurse Practitioner Adult Health; Referring Provider Nurse Practitioner Adult Health; Visit Provider Nurse Practitioner Adult Health
DX: U09.9 Post COVID-19 condition, unspecified (principal); M75.31 Calcific tendinitis of right shoulder; M54.2 Cervicalgia; M25.519 Pain in unspecified shoulder; M25.561 Pain in right knee
CPT/HCPCS: 36415; 80053; 82607; 83540; 83550; 85025

== ENCOUNTER 2021-07-12 12:30 | Outpatient (RCR) | payer MEDICARE, MEDICAID, SELFPAY ==
--- NOTE | 2021-06-14 16:26 | HP.PTEVAL_ITS ---
Patient's Visit Information LUCIAN LORD is a 65 year old M referred to Physical Therapy by DIRK Galvez with a diagnosis of R KNEE OA. Date of Evaluation: 06/14/21 Physical Therapist: Susan Viramontes PT, Cert MDT - Visit Plan Frequency: 2-3x /Week Duration: 4-6 Weeks Plan: AQUATIC THERAPY FOR RIGHT LE PAIN RELIEF, ROM, STRETCHING, STRENGTHENING AND GAIT TRAINING TO HELP MEET SET GOALS WITH USE OF REDUCED WEIGHT BEARING ENVIRONMENT AND HYDROSTATIC PRESSURE. - Subjective PATIENT REPORTS NEW RIGHT LEG AND KNEE PAIN. REPORTS THIS PAIN ALSO GOES UP THE INSIDE OF HIS RIGHT THIGH AND INTO HIS HIP. DENIES LBP BUT REPORTS HE JUST HAS THE BACK STIFFNESS THAT HE IS USE TO (CHRONIC). 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 REPORS HE IS HAVING A LOT OF TROUBLE GETTING OUT OF THE CAR AND OUT OF A CHAIR. SEE X-RAY BELOW. HE REPORTS HAVING INJECTIONS LAST WEEK THAT HELPED FOR A LITTLE BIT BUT THEY HAVE WORE OFF NOW. TAKING TYLONOL AND IT DOES HELP. HAS ONLY CALLED OFF WORK ONE DAY. 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 GOING UP STEPS REALLY BOTHERS HIM AND HE HAS TO GO ONE AT A TIME. REPORTS INCREASED THE PAIN STARTED IN EARLY APRIL FOR NO APPARENT REASON OTHER THAN BENDING OVER WITH ONE FOOT UP ON STEP AND BENT OVER TO GET DUST OFF STEP. PAIN: WORST 8/10, LEAST 5/10. PATIENT REPORTS THE PAIN IS AVERAGING ABOUT 8/10 EVERYDAY. STUDY: X-RAY - RIGHT KNEE. REASON FOR EXAM: Male, 65 years old. Pain and stiffness. TECHNIQUE: 4 view(s) of the knee. COMPARISON: None. FINDINGS: Normal visualized distal femur. Normal visualized proximal tibia and. fibula. Normal proximal tibiofibular articulation. There is moderate degenerative arthrosis of the medial femorotibial. compartment with moderate joint space narrowing. There is moderate. degenerative arthrosis of the lateral femorotibial compartment with. moderate joint space narrowing. There is moderate degene rative arthrosis. of the patellofemoral articulation. There is chondrocalcinosis, and spur. formation on the distal femur, proximal tibia and posterior patella. The soft tissue structures are unremarkable. . RAD/Knee 4 or More Views. IMPRESSION: Tricompartmental arthrosis with degenerative spurs, and chondrocalcinosis. No demonstrated fracture. . Electronically Signed: Papi Adams MD. at 13:17 EST. Reading Location ID and State: [address] [place] [address]. , Service support , . - Objective Sitting/Standing Posture: POOR. EXCESSIVE TRUNK FLEXION. Lordosis: REDUCED. Lateral shift: NO. Relevant shift: N/A. Active Correction of posture: PATIENT ONLY PARTIALLY ABLE TO CORRECT AND INCREASES RIGHT THIGH AND KNEE PAIN. Other Observations: THIS PATIENT AMBULATES INDEP'LY INTO PT WITHOUT ANY ASSISTIVE DEVICES LIMPING ON HIS RIGHT LE AND WALKING WITH EXCESSIVE TRUNK FLEXION AND DECREASED CADANCE AND RENE STRIDE LENGTH. C/O PAIN AND DIFFICULTY TRANSITIONING FROM SIT TO STAND AND UE DEPENDENT TO DO SO. GAIT AND TRANSFERS ARE SLOW AND GUARDED WITH A LOT OF PAIN BEHAVIOR BUT ONCE HE TAKES A FEW STEPS HE REPORTS LESS PAIN WALKING. Motor deficit: LLE 5/5. RIGHT LE: HIP FLEX 3+/5, KNEE 3- /5, ANKLE 5/5. PATIENT C/O PAIN WITH TESTING OF RIGHT HIP AND KNEE ALL PLANES. Sensory deficit: RENE LE LIGHT TOUCH SENSATION IS GROSSLY INTACT AND SYMMETRICAL. ROM deficit: RIGHT KNEE ROM MEASUREMENTS TAKEN IN SITTING BECAUSE PATIENT DOES NOT WANT TO TRY TO LAY DOWN DUE TO THE PAIN. RIGHT KNEE AROM IN SITTING IS GROSSLY -10 DEG EXT TO 100 DEG FLEX. PATIENT C/O LESS PAIN WITH RIGHT KNEE ROM TESTING COMPARED TO RIGHT HIP ROM TESING. RIGHT HIP AROM PAIN LIMITED ALL PLANES. Dural Signs: NEGATIVE RENE LE DURAL SIGNS. Lumbar mvmt loss: flex - MOD. ext - ALYSSA. R SG - ALYSSA. L SG - ALYSSA. PATIENT C/O RENE LOW BACK AND RIGHT THIGH PAIN WITH LUMBAR ROM TESTING ALL PLANES. Core strength: POOR. TREATMENT: GAIT TRAINING WITH STRAIGHT CANE TO DECREASE PRESSURE ON RIGH TLE. PATIENT DEMO'D GOOD SEQUENCING AND REPORTED LESS PAIN WITH CANE AFTER TRAINING. - Balance/Special Test Scores Lower Extremity Functional Score: 14 - Goals Goal 1:: DECREASE C/O RIGHT THIGH AND KNEE PAIN Goal Time Frame: 4-6 Weeks Goal 2:: INDEP AND SAFE GAIT ON LEVEL SURFACES AND UP AND DOWN STEPS WITH LEAST ASSISTIVE DEVICE AND DEVIATIONS. Goal Time Frame: 4-6 Weeks Goal 3:: INCREASE FUNCTIONAL ROM OF RIGHT KNEE BY 10 DEG TO EASE ADL'S Goal 4:: INCREASE FUNCTIONAL STRENGHT OF RIGHT LE BY ONE GRADE TO EASE ADL'S Goal Time Frame: 4-6 Weeks Goal 5:: PATIENT WILL BE INDEP WITH AN EX PROGRAM FOR CONTINUED IMRPOVEMENT ONCE FORMAL PHYSICAL THERAPY CONCLUDES. Goal Time Frame: 4-6 Weeks Goal 6:: INCREASE LEFS SCORE BY 10 POINTS Goal Time Frame: 4-6 Weeks - Anticipated Interventions Patient/Client Instruction: Educate patient on: Condition, Plan of Care, Risk Factors For the Purpose of:: To improve self management Therapeutic Exercise to Include: Strength training, Body mechanics, Postural training, Flexibilty training, Gait and locomotor training, Neuromotor development, In an aquatic setting, Active ROM, Dynamic Lumbar Stabilization For the Purpose of:: To decrease pain, To increase ROM, To improve muscle performance and motor function, To increase tolerance to activity/condition/position, To improve ability of physical actions for home/community/work/leisure, To improve gait and locomotor functions Thank you for the opportunity to evaluate your patient. For Medicare and Medicare HMO plans, please review the plan of care and approve it. It will need to be FAXED BACK to us at [phone] for Medicare purposes. For Medicare only, by signing this I certify the plan of care. Please let me know if there are questions or concerns regarding this plan of care. Physician Signature:_ Date:
--- NOTE | 2021-07-12 13:19 | HP.PTDCSUM ---
It has been my pleasure to treat LUCIAN LORD referred by DIRK Galvez, with the diagnosis of R KNEE OA for a total of 8 visit(s). Discharge Date: Please see the following information for a summary of their discharge status. Subjective: PATIENT REPORTS HAVING FOLLOW UP WITH ORTHO THURSDAY. PREDNISONE PRESCRIBED AND INJECTIONS RECOMMENDED - AWAITING INSURANCE APPROVAL. PATIENT REPORTS HIS KNEE IS REALLY HURTING AND HE HASN'T EVEN WORKED FOR A FEW DAYS. REPORTS HE HAS A LOT LESS PAIN WHEN HE IS IN THE WATER. OVER-ALL, HE REPORTS HIS RIGHT LEG PAIN IS NOT GETTING BETTER (AND NOT GETTING WORSE). REPORTS HE HAS BEEN SLEEPING IN THE RECLINER RLE Pain Intensity (Out of 10): 7 Lumbar Spine Pain Intensity (Out of 10): 5 % Improvement: 0 Objective/Function: PATIENT WAS SEEN TODAY FOR RE-ASSESSMENT OF PROGRESS TOWARD THE SET PT GOALS AND THE NEED FOR FURTHER PHYSICAL THERAPY VS READINESS FOR DISCHARGE. UPON EXAM TODAY: THERE ARE NO SIGNIFICANT CHANGES SINCE INITAL EVAL. HE DOES REPORT TEMPORARY PAIN RELIEF AND INCREASED MOBILITY EACH TIME AFTER HE DOES WATER THERAPY. HE IS NOT PROGRESSING BUT ENCOURAGED PATIENT TO CONTINUE INDEP WATER EX FOR TEMPORARY RELIEF WHILE HE IS GETTING OTHER MEDICATION INTERVENTIONS WITH ORTHO. PATIENT IS AGREEABLE AND HAS A [employer] MEMBERSHIP HERE AT [employer]. PATIENT CONTINUES TO HAVE SIGNIFICANT RIGHT LE DEFICITS AND IMPRAIRED GAIT INDICATED AT INITIAL EVAL. Goal 1:: DECREASE C/O RIGHT THIGH AND KNEE PAIN Goal Progress: Not Progressing Goal 2:: INDEP AND SAFE GAIT ON LEVEL SURFACES AND UP AND DOWN STEPS WITH LEAST ASSISTIVE DEVICE AND DEVIATIONS. Goal Progress: Not Progressing Goal 3:: INCREASE FUNCTIONAL ROM OF RIGHT KNEE BY 10 DEG TO EASE ADL'S Goal Progress: Not Progressing Goal 4:: INCREASE FUNCTIONAL STRENGHT OF RIGHT LE BY ONE GRADE TO EASE ADL'S Goal Progress: Not Progressing Goal 5:: PATIENT WILL BE INDEP WITH AN EX PROGRAM FOR CONTINUED IMRPOVEMENT ONCE FORMAL PHYSICAL THERAPY CONCLUDES. Goal Progress: Not Progressing Goal 6:: INCREASE LEFS SCORE BY 10 POINTS Goal Progress: Not Progressing Plan: D/C TO FOLLOW UP WITH ORTHO AND INDEP POOL PROGRAM. PATIENT IS AGREEABLE. If there are questions or concerns regarding this patient's physical therapy, please feel free to call me at [phone]. Thank you for the referral of this patient. Sincerely, Susan Viramontes, PT, Cert MDT Balance/Gait/Functional tests - Balance/Special Test Scores Lower Extremity Functional Score: 14
== END 2021-07-12 19:00 | disposition home or self-care (01) ==
LOC: PT 12:30
PROVIDERS: PCP Nurse Practitioner Adult Health; Referring Provider Physician Assistant; Visit Provider Physician Assistant
DX: M17.11 Unilateral primary osteoarthritis, right knee (principal)
CPT/HCPCS: 97113; 97162; 97164

== ENCOUNTER → 2021-08-09 | Outpatient (CLI) | payer MEDICARE, MEDICAID, SELFPAY ==
[2021-08-09 08:36] LABS: Anion Gap 4 (5-15); BUN 16 mg/dL (7-18); BUN/Creat Ratio 12.7 RATIO (10-20); Calcium,Total 9.3 mg/dL (8.5-10.1); Chloride 107 mmol/L (98-107); Creatinine, Serum 1.26 mg/dL (0.70-1.30); EST Glomerular Filtration Rate 61 mL/min (>60); Est Glom Filt Rate - Afr Amer 73 mL/min (>60); Glucose 95 mg/dL (74-106); Sodium Level 140 mmol/L (136-145)
== END | disposition home or self-care (01) ==
PROVIDERS: Nurse Practitioner Adult Health
DX: I10 Essential (primary) hypertension (principal)
CPT/HCPCS: 36415; 80048

== ENCOUNTER → 2021-09-10 | Outpatient (CLI) | payer MEDICARE, MEDICAID, SELFPAY ==
[2021-09-10 10:08] LABS: Anion Gap 5 (5-15); BUN 23 mg/dL (7-18); BUN/Creat Ratio 19.2 RATIO (10-20); Calcium,Total 9.4 mg/dL (8.5-10.1); Chloride 110 mmol/L (98-107); EST Glomerular Filtration Rate 64 mL/min (>60); Est Glom Filt Rate - Afr Amer 78 mL/min (>60); Glucose 96 mg/dL (74-106); Potassium 4.4 mmol/L (3.5-5.1); Sodium Level 140 mmol/L (136-145)
== END | disposition home or self-care (01) ==
LOC: LAB 08:21
DX: R60.9 Edema, unspecified (principal)
CPT/HCPCS: 36415; 80048

== ENCOUNTER → 2021-09-24 | Outpatient (CLI) | payer MEDICARE, MEDICAID, SELFPAY ==
--- NOTE | 2021-09-24 13:22 | MRI_ITS ---
STUDY: MR Spine Lumbar W/O Contrast 09/24/2021 4:25 PM REASON FOR EXAM: Male, 65 years old. 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 COMPARISON: None FINDINGS: T12-L1: Normal endplates. Normal disc height, hydration and morphology. Normal bilateral facet joints. Normal central canal and bilateral lateral recesses. Normal bilateral intervertebral neural foramina. Normal lumbar lordosis. There is no substantial scoliosis. Normal conus medullaris that terminates at the L1. L1-2: Loss of intervertebral disc height. There is endplate spondylosis of the vertebral body. Normal central canal and intervertebral neuroforamina. There is bilateral facet arthropathy. L2-3: Loss of intervertebral disc height. There is endplate spondylosis of the vertebral body. Normal central canal and intervertebral neuroforamina. There is bilateral facet arthropathy. L3-4: Loss of intervertebral disc height. There is endplate spondylosis of the vertebral body. Left narrowing of the intervertebral neuroforamina. There is bilateral facet arthropathy. L4-5: Loss of intervertebral disc height. There is endplate spondylosis of the vertebral body. Normal Bilateral neural foraminal stenosis. Compression of exiting nerve roots. There is bilateral facet arthropathy. Mild spinal stenosis. L5-S1: Loss of intervertebral disc height. There is endplate spondylosis of the vertebral body. There is bilateral facet arthropathy. Normal central canal and intervertebral neuroforamina. Normal visualized sacral ala. Normal visualized paraspinous soft tissue structures. MRI/Spine Lumbar (Routine) IMPRESSION: Multilevel degenerative changes, as described above. L3-4: Loss of intervertebral disc height. There is endplate spondylosis of the vertebral body. Left narrowing of the intervertebral neuroforamina. There is bilateral facet arthropathy. L4-5: Loss of intervertebral disc height. There is endplate spondylosis of the vertebral body. Normal Bilateral neural foraminal stenosis. Compression of exiting nerve roots. There is bilateral facet arthropathy. Mild spinal stenosis. Electronically Signed: Elmo Velazco MD at 16:29 EDT ,
== END | disposition home or self-care (01) ==
LOC: MRI 13:22
PROVIDERS: Visit Provider Orthopaedic Surgery
DX: M47.16 Other spondylosis with myelopathy, lumbar region (principal)
CPT/HCPCS: 72148

== ENCOUNTER 2021-12-05 13:00 | Outpatient (RCR) | payer MEDICARE, MEDICAID, SELFPAY ==
--- NOTE | 2021-08-12 14:04 | HP.PTEVAL_ITS ---
Patient's Visit Information LUCIAN LORD is a 65 year old M referred to Physical Therapy by DIRK Galvez with a diagnosis of R KNEE OA WITH QUADRICEP WEAKNESS/ATROPHY. Date of Evaluation: 08/12/21 Physical Therapist: Susan Viramontes, PT, Cert MDT - Visit Plan Frequency: 2-3x /Week Duration: 4-6 Weeks Plan: R KNEE US, ROM, STRETCHING AND STRENGTHENING TO HELP MEET SET GOALS. GAIT AND BALANCE TRAINING WBAT R LE. - Subjective PATIENT REPORTS HIS RIGHT LEG AND KNEE PAIN IS NOT GETTING BETTER. STATES HE HAS BEEN TRYING TO AVOID A TKR. REPORTS HE HAS RECEIVED 3 INJECTIONS IN HIS RIGHT KNEE SINCE LAST SEEN IN PT BUT HASN'T FELT THE BENEFIT YET. REPORTS HE DEVELOPED A RED AREA ON HIS RIGHT KNEE RECENTLY AND IS GOING TO THE DOCTOR TO HAVE IT LOOKED AT TODAY AFTER PT. PATIENT REPORTS HE HAS NOT CONTINUED THE WATER EX SINCE LAST EPISODE OF CARE WITH PT. WANTS TO TRY US AND LAND THERAPY THIS TIME SINCE HE ONLY HAD TEMPORARY BENEFIT FROM AQUATIC THERPAY. REPORTS THIS PAIN ALSO GOES UP THE INSIDE OF HIS RIGHT THIGH AND INTO HIS HIP. DENIES LBP BUT REPORTS HE JUST HAS THE BACK STIFFNESS THAT HE IS USE TO (CHRONIC). 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 REPORS HE IS HAVING A LOT OF TROUBLE GETTING OUT OF THE CAR AND OUT OF A CHAIR. SEE X-RAY BELOW. TAKING TYLONOL AND IT DOES HELP SOME. ALSO TAKING MALOXACAM NOW. ONLY ABLE TO WORK 1.5 DAYS LAST WEEK DUE TO HIS RIGHT KNEE PAIN. REPORTS HE CAN BARELY WALK. GOING UP STEPS REALLY BOTHERS HIM AND HE HAS TO GO ONE AT A TIME. REPORTS THIS INCREASED R KNEE PAIN STARTED IN EARLY APRIL FOR NO APPARENT REASON OTHER THAN BENDING OVER WITH ONE FOOT UP ON STEP AND BENT OVER TO GET DUST OFF STEP. PAIN: WORST 9/10, LEAST 5/10. PATIENT REPORTS THE PAIN IS AVERAGING ABOUT 8/10 EVERYDAY. PATIENT DENIES ANY FALLS. STUDY: X-RAY - RIGHT KNEE. REASON FOR EXAM: Male, 65 years old. Pain and stiffness. TECHNIQUE: 4 view(s) of the knee. COMPARISON: None. FINDINGS: Normal visualized distal femur. Normal visualized proximal tibia and. fibula. Normal proximal tibiofibular articulation. There is moderate degenerative arthrosis of the medial femorotibial. compartment with moderate joint space narrowing. There is moderate. degenerative arthrosis of the lateral femorotibial compartment with. moderate joint space narrowing. There is moderate degenerative arthrosis. of the patellofemoral articulation. There is chondrocalcinosis, and spur. formation on the distal femur, proximal tibia and posterior patella. The soft tissue structures are unremarkable. . RAD/Knee 4 or More Views. IMPRESSION: Tricompartmental arthrosis with degenerative spurs, and chondrocalcinosis. No demonstrated fracture. . Electronically Signed: Papi Adams MD. at 13:17 EST. Reading Location ID and State: [facility] [place]. , Service support , . OTHER: REPORTS HE GOT A CANE AND HAS TO USE IT A LOT NOW. PATIENT REPORTS HE REQUESTED TO RETURN TO PT. - Objective Sitting/Standing Posture: POOR. EXCESSIVE TRUNK FLEXION. Lordosis: REDUCED. Lateral shift: RIGHT Active Correction of posture: PATIENT ONLY PARTIALLY ABLE TO CORRECT AND INCREASES RIGHT THIGH AND KNEE PAIN. Other Observations: THIS PATIENT AMBULATES INDEP'LY INTO PT USING A QUAD CANE AND LIMPING ON HIS RIGHT LE AND WALKING WITH EXCESSIVE TRUNK FLEXION AND DECREASED CADANCE AND RENE STRIDE LENGTH. C/O PAIN AND DEMO'ING DIFFICULTY TRANSITIONING FROM SIT TO STAND AND UE DEPENDENT TO DO SO. GAIT AND TRANSFERS ARE SLOW AND GUARDED WITH A LOT OF PAIN BEHAVIOR BUT ONCE HE TAKES A FEW STEPS HE REPORTS LESS PAIN WALKING. TODAY, IT TOOK PATIENT 1-2 MINUTES AFTER RISING FROM SITTING TO START INITIATING GAIT DUE TO C/O RIGHT THIGH LOCKING UP. Motor deficit: LLE 5/5. RIGHT LE: HIP FLEX 3+/5, KNEE 3-/5, ANKLE 5/5. PATIENT C/O PAIN WITH TESTING OF RIGHT HIP AND KNEE ALL PLANES. ROM deficit: RIGHT KNEE ROM MEASUREMENTS TAKEN IN SITTING BECAUSE PATIENT DOES NOT WANT TO TRY TO LAY DOWN DUE TO THE PAIN. RIGHT KNEE AROM IN SITTING IS GROSSLY -15 DEG EXT TO 100 DEG FLEX. PATIENT C/O LESS PAIN WITH RIGHT KNEE ROM TESTING COMPARED TO RIGHT HIP ROM TESING. RIGHT HIP AROM PAIN LIMITED ALL PLANES. Dural Signs: NEGATIVE RENE LE DURAL SIGNS. Lumbar mvmt loss: flex - MOD. ext - ALYSSA. R SG - ALYSSA. L SG - ALYSSA. PATIENT C/O RENE LOW BACK AND RIGHT THIGH PAIN WITH LUMBAR ROM TESTING ALL PLANES. Core strength: POOR. TREATMENT: GAIT TRAINING WITH QUAD CANE TO DECREASE PRESSURE ON RIGH TLE. PATIENT DEMO'D GOOD SEQUENCING AND REPORTED LESS PAIN WITH CANE AFTER TRAINING. PATIENT NEEDED RE-TRAINED BECAUSE CAME IN USING CANE IN RIGHT UE VS LEFT. GAIT ACTUALLY IMPROVES WITH TRAINING WITH FWW VS CANE AND PATIENT WANTS TO USE CANE. OTHER: THERE IS A RED AREA ABOUT THE SIZE OF A QUARTER ON PATIENTS RIGHT LATERAL KNEE AREA. - Balance/Special Test Scores Lower Extremity Functional Score: 20 TUG Test Time Seconds: 118 30 Second Chair Rise Test Seconds: 1 - Goals Goal 1:: DECREASE C/O R KNEE PAIN Goal Time Frame: 4-6 Weeks Goal 2:: PATIENT WILL BE INDEP AND SAFE WITH GAIT ON LEVEL SURFACES AND UP AND DOWN STEPS WITH LEAST ASSISTIVE DEVICE AND DEVIATIONS Goal Time Frame: 4-6 Weeks Goal 3:: PATIENT WILL COMPLETE 6 STANDS IN 30 SECS TO DEMONSTRATE IMPROVED FUNCTIONAL STRENGTH Goal Time Frame: 4-6 Weeks Goal 4:: PATIENT WILL COMPLETE TUG IN < 30 SECS TO DEMONSTRATE IMPROVED GAIT STABILITY Goal Time Frame: 4-6 Weeks Goal 5:: PATIENT WILL BE INDEP WITH A HEP FOR CONTINUED IMPROVEMENT ONCE FORMAL PHYSICAL THERAPY CONCLUDES. Goal Time Frame: 4-6 Weeks - Anticipated Interventions Patient/Client Instruction: Educate patient on: Condition, Plan of Care, Risk Factors For the Purpose of:: To improve self management Therapeutic Exercise to Include: Strength training, Flexibilty training, Gait and locomotor training, Neuromotor development, In an aquatic setting For the Purpose of:: To decrease pain, To increase ROM, To improve muscle performance and motor function, To increase tolerance to activity/condition/position, To improve ability of physical actions for home/community/work/leisure, To improve gait and locomotor functions Cryotherapy (ice pack, ice massage): Yes Thermo therapy (hot pack): Yes Ultrasound (thermal/non thermal): Yes For the Purpose of:: To decrease pain, To improve nutrient delivery to tissue Thank you for the opportunity to evaluate your patient. For Medicare and Medicare HMO plans, please review the plan of care and approve it. It will need to be FAXED BACK to us at [phone] for Medicare purposes. For Medicare only, by signing this I certify the plan of care. Please let me know if there are questions or concerns regarding this plan of care. Physician Signature: Date:
--- NOTE | 2021-10-31 16:25 | HP.PTREVAL ---
DIRK Galvez, It has been my pleasure to treat LUCIAN LORD over the last 3 visits for R KNEE OA WITH QUADRICEP WEAKNESS/ATROPHY. Please see the progress note below for an update on the physical therapy plan of care! Subjective: Pt. is here today after seeing his physician. pt. reports overall doing a bit better. He did have an injection in his back which has helped his back, but is still having issues in his R posterior knee. He followed up with physician and he felt like he was having increased semimembranosus tendonitis, distally. Pt. reports 8/10 pain with walking, no pain at rest. Objective/Function: R knee: ROM 0-8-107deg. He is very tender along medial HS insertion at posterior knee and long his adductor mookie. This is effecting his gait as well as he walks with flexed knee and flexed posture in attempts to off load his RLE. I suggest doing DN, US and manual to this region in attempts to reduce symptoms then progress more WBing activities. We will start in this and progress as tolerated. Plan Plan: DN and US to semimebranousis and manual to the same region. Add in light mobility and WBing as tolerated. Once symptoms have reduce progress to more functional activities. Balance/Gait/Functional tests - Balance/Special Test Scores Lower Extremity Functional Score: 20 TUG Test Time Seconds: 118 Tug Test: >30sec.=impaired mobility 30 Second Chair Rise Test Seconds: 1 Goals Goal 1:: DECREASE C/O R KNEE PAIN Goal Time Frame: 4-6 Weeks Goal 2:: PATIENT WILL BE INDEP AND SAFE WITH GAIT ON LEVEL SURFACES AND UP AND DOWN STEPS WITH LEAST ASSISTIVE DEVICE AND DEVIATIONS Goal Time Frame: 4-6 Weeks Goal 3:: PATIENT WILL COMPLETE 6 STANDS IN 30 SECS TO DEMONSTRATE IMPROVED FUNCTIONAL STRENGTH Goal Time Frame: 4-6 Weeks Goal 4:: PATIENT WILL COMPLETE TUG IN < 30 SECS TO DEMONSTRATE IMPROVED GAIT STABILITY Goal Time Frame: 4-6 Weeks Goal 5:: PATIENT WILL BE INDEP WITH A HEP FOR CONTINUED IMPROVEMENT ONCE FORMAL PHYSICAL THERAPY CONCLUDES. Goal Time Frame: 4-6 Weeks Anticipated Interventions Patient/Client Instruction: Educate patient on: Condition, Plan of Care, Risk Factors For the Purpose of:: To improve self management Therapeutic Exercise to Include: Strength training, Flexibilty training, Gait and locomotor training, Neuromotor development, In an aquatic setting For the Purpose of:: To decrease pain, To increase ROM, To improve muscle performance and motor function, To increase tolerance to activity/condition/position, To improve ability of physical actions for home/community/work/leisure, To improve gait and locomotor functions Cryotherapy (ice pack, ice massage): Yes Thermo therapy (hot pack): Yes Ultrasound (thermal/non thermal): Yes For the Purpose of:: To decrease pain, To improve nutrient delivery to tissue Please do not hesitate to contact me at [phone] by phone or if you have questions or concerns regarding this new plan of care! Sincerely, ABDULLAHI FisherT
--- NOTE | 2021-11-26 11:49 | HP.PTREVAL ---
DIRK Galvez, It has been my pleasure to treat LUCIAN LORD over the last 6 visits for R KNEE OA WITH QUADRICEP WEAKNESS/ATROPHY. Please see the progress note below for an update on the physical therapy plan of care! Subjective: Pt. reports having a nerve block last week and believes that it has been helping a little bit. He still has pain with walking, but more pain distal quad today and less medial aspect of his thigh. Objective/Function: Pt. tolerated all PT well this date. He continues to have difficulty with standing up right. When he does stand up right he flexes hip and bends knee secondary to pain. He has less tenderness at adductors and medial knee this date. He reported increased lateral R knee pain and distal quad pain today. He has a very difficult time with WBing on his R leg and standing up right. Marginally better. I think we need to work on getting tolerance to upright standing, extending his R hip to allow for better gait pattern. Plan Plan: Pt. is to follow up with ortho later this week then back to PT to discuss plan. Balance/Gait/Functional tests - Balance/Special Test Scores Lower Extremity Functional Score: 20 TUG Test Time Seconds: 118 Tug Test: >30sec.=impaired mobility 30 Second Chair Rise Test Seconds: 1 Goals Goal 1:: DECREASE C/O R KNEE PAIN Goal Time Frame: 4-6 Weeks Goal 2:: PATIENT WILL BE INDEP AND SAFE WITH GAIT ON LEVEL SURFACES AND UP AND DOWN STEPS WITH LEAST ASSISTIVE DEVICE AND DEVIATIONS Goal Time Frame: 4-6 Weeks Goal 3:: PATIENT WILL COMPLETE 6 STANDS IN 30 SECS TO DEMONSTRATE IMPROVED FUNCTIONAL STRENGTH Goal Time Frame: 4-6 Weeks Goal 4:: PATIENT WILL COMPLETE TUG IN < 30 SECS TO DEMONSTRATE IMPROVED GAIT STABILITY Goal Time Frame: 4-6 Weeks Goal 5:: PATIENT WILL BE INDEP WITH A HEP FOR CONTINUED IMPROVEMENT ONCE FORMAL PHYSICAL THERAPY CONCLUDES. Goal Time Frame: 4-6 Weeks Anticipated Interventions Patient/Client Instruction: Educate patient on: Condition, Plan of Care, Risk Factors For the Purpose of:: To improve self management Therapeutic Exercise to Include: Strength training, Flexibilty training, Gait and locomotor training, Neuromotor development, In an aquatic setting For the Purpose of:: To decrease pain, To increase ROM, To improve muscle performance and motor function, To increase tolerance to activity/condition/position, To improve ability of physical actions for home/community/work/leisure, To improve gait and locomotor functions Cryotherapy (ice pack, ice massage): Yes Thermo therapy (hot pack): Yes Ultrasound (thermal/non thermal): Yes For the Purpose of:: To decrease pain, To improve nutrient delivery to tissue Please do not hesitate to contact me at [phone] by phone or if you have questions or concerns regarding this new plan of care! Sincerely, ABDULLAHI FisherT
== END 2021-12-05 19:00 | disposition home or self-care (01) ==
LOC: PT 13:00
PROVIDERS: PCP Nurse Practitioner Adult Health; Referring Provider Physician Assistant; Visit Provider Physician Assistant
DX: M17.11 Unilateral primary osteoarthritis, right knee (principal); R29.898 Other symptoms and signs involving the musculoskeletal system
CPT/HCPCS: 97035; 97110; 97116; 97140; 97162; 97530

== ENCOUNTER → 2022-04-15 | Outpatient (CLI) | payer MEDICARE, MEDICAID, SELFPAY ==
--- NOTE | 2022-04-21 08:44 | EKG12_ITS ---
Test Reason : PRE OP Blood Pressure : / mmHG Vent. Rate : 073 BPM Atrial Rate : 073 BPM P-R Int : 144 ms QRS Dur : 068 ms QT Int : 354 ms P-R-T Axes : 035 -14 043 degrees QTc Int : 389 ms Normal sinus rhythm Normal ECG Confirmed by KERRY SALAZAR, ALICIA ([id number]), managing editor BOBBY PHELAN ([id number]) on 04/21/2022 2:03:55 PM Referred By: Bryant Lobo Confirmed By:ALICIA PAYNE MD
[2022-04-21 09:37] LABS: Absolute Lymphocyte Count 1.18 X10^3/uL (0.83-4.51); Absolute Neutrophil Count 5.5 X10^3/uL (2.0-7.7); Basophil# 0.05 X10^3/uL; Basophil% 0.7 % (0-1); Eosinophil# 0.18 X10^3/uL; Eosinophils% 2.4 % (0-5); Hematocrit 45.5 % (40-54); Hemoglobin 15.1 g/dL (13.0-16.5); Lymphocyte # 1.18 X10^3/ul (0.83-4.51); Lymphocyte % 15.6 % (19-41); Mean Corp Hgb Conc 33.2 g/dL (32-36); Mean Corpuscular Hgb 29.1 pg (27.0-32.0); Mean Corpuscular Volume 87.7 fL (80-94); Mean Platelet Vol. 9.4 fl (6.2-12.0); Monocyte# 0.59 X10^3/uL; Monocyte% 7.8 % (0-10); NRBC Flagged by Analyzer 0 % (0-5); Neutrophil # 5.52 X10^3/uL (2.7-7.7); Neutrophil % 73.1 % (47-70); Platelet Count 246 K/mm3 (150-450); RBC Distribution Width CV 13.5 % (11.6-14.6); RBC Distribution Width SD 43.5 fl (35.1-43.9); Red Blood Count 5.19 M/mm3 (4.6-6.2); White Blood Count 7.6 K/mm3 (4.4-11.0)
[2022-04-21 09:52] LABS: International Normalized Ratio 1.1; Prothrombin Time (Protime)PT. 13.6 SECONDS (11.7-14.9)
[2022-04-21 09:53] LABS: Partial Thromboplast Time 29.2 Seconds (24.1-36.2)
[2022-04-21 09:55] LABS: Hemoglobin A1c 5.7 % (3.8-5.6)
[2022-04-21 10:07] LABS: Anion Gap 9 (5-15); BUN 16 mg/dL (7-18); BUN/Creat Ratio 12.8 RATIO (10-20); Calcium,Total 9.5 mg/dL (8.5-10.1); Chloride 107 mmol/L (98-107); Creatinine, Serum 1.25 mg/dL (0.70-1.30); EST Glomerular Filtration Rate 61 mL/min (>60); Est Glom Filt Rate - Afr Amer 74 mL/min (>60); Glucose 108 mg/dL (74-106); Potassium 3.8 mmol/L (3.5-5.1); Sodium Level 141 mmol/L (136-145)
[2022-04-21 10:12] LABS: AST(SGOT) 13 U/L (15-37); Alanine Aminotransfer ALT/SGPT 26 U/L (16-61); Albumin, Serum 3.7 g/dL (3.2-5.0); Alkaline Phosphatase 89 U/L (45-117); Bilirubin, Direct 0.24 mg/dL (0.00-0.30); Globulin 3.5 g/dL (2.2-4.2); Magnesium 1.9 mg/dL (1.6-2.6); Protein, Total 7.2 g/dL (6.4-8.2)
[2022-04-21 13:40] LABS: BNP,B-Type NATRIURETIC PEPTIDE 12.3 pg/mL (0-100)
[2022-04-24 21:43] LABS: Fructosamine 233 umol/L (0-285)
--- NOTE | 2022-04-29 09:03 | SUR.PREOP ---
upon walking into room to prep patient for surgery, the right foot(surgical foot) was noted to be red and swollen and patient stated that he has been having pain x3 days. Dr Fox spoke with Dr Hoang and the case was then cancelled. patient was instructed to follow up with primary care to care for likely infection of surgical foot. patient and family stated understanding.
== END | disposition home or self-care (01) ==
LOC: PAT 05-08 14:58
PROVIDERS: Anesthesiology; Referring Provider Orthopaedic Surgery; Visit Provider Orthopaedic Surgery
DX: Z53.8 Procedure and treatment not carried out for other reasons (principal); Z01.818 Encounter for other preprocedural examination
CPT/HCPCS: 36415; 80048; 80076; 82985; 83036; 83735; 83880; 85025; 85610; 85730; 86850; 86900; 86901; 87081; 93005; J7120

== ENCOUNTER → 2022-04-16 | Outpatient (CLI) | payer MEDICARE, MEDICAID, SELFPAY ==
--- NOTE | 2022-04-16 16:18 | CT_ITS ---
EXAM: CT RIGHT LOWER EXTREMITY WITHOUT INTRAVENOUS CONTRAST CLINICAL INDICATION: templating for right TKA TECHNIQUE: Helically acquired images were obtained of the right lower extremity without intravenous contrast. 2-D reformats were performed by the technologist. CTDIvol = ( 18.99 ) mGy, DLP = ( 2247.35 ) mGycm This CT exam was performed using one or more of the following dose reduction techniques: automated exposure control, adjustment of the mA and/or kV according to patient size, and/or use of iterative reconstruction technique. This report was created using Exacaster report WebSideStory technology. COMPARISON: None. FINDINGS: BONES/JOINTS: Medial and lateral meniscal chondrocalcinosis. Moderate to severe tricompartmental osteoarthrosis of the knee. Polyarticular degenerative changes involving the foot and ankle. End-stage right hip osteoarthrosis with flattening of the normal wall femoral contour. Cannot exclude underlying avascular necrosis. Right hip joint effusion is present. Calcaneal enthesopathy at the plantar and posterior aspects. Nonfused os trigonum. No acute fracture. No subluxation. Normal alignment. SOFT TISSUES: Small amount of suprapatellar joint fluid. Small Cleveland''s cyst. No soft tissue swelling or gas. No radiopaque foreign body. VASCULATURE: Peripheral vascular calcifications are identified. OTHER FINDINGS: No masses or fluid collections. CT/Extremity Lower without Contra IMPRESSION: Moderate to severe tricompartmental osteoarthrosis of the knee. Medial lateral meniscal chondrocalcinosis End-stage right hip osteoarthrosis. Ancillary findings as above. Electronically Signed: Eric Rebollar MD at 4:25 EST ,
== END | disposition home or self-care (01) ==
LOC: CT 16:16
PROVIDERS: Referring Provider Orthopaedic Surgery; Visit Provider Orthopaedic Surgery
DX: M17.11 Unilateral primary osteoarthritis, right knee (principal)
CPT/HCPCS: 73700

== ENCOUNTER → 2022-07-03 | Outpatient (CLI) | payer MEDICARE, MEDICAID, SELFPAY ==
--- NOTE | 2022-07-03 12:29 | VDLE_ITS ---
Reason For Study: Edema RIGHT LEFT GSV is normal. CFV is compressible, spontaneous, phasic, CFV is compressible, spontaneous, phasic, competent, and demonstrates normal competent and demonstrates normal augmentation. augmentation. FV is compressible, spontaneous, phasic, competent and demonstrates normal augmentation. POP V is compressible, spontaneous, phasic, competent and demonstrates normal augmentation. T/P Trunk is compressible. PTV is compressible. RT PerV is compressible. Procedure This is a venous duplex using B-mode, color flow and spectral Doppler. Exam performed in department. The exam was diagnostic. The study was technically difficult due to patient immobility. A preliminary report was called and/or faxed to Jeanne Blount / [facility]. VL/Venous Duplex US, Unilateral Interpretation Summary There is no evidence of right lower extremity deep vein thrombosis. Right great saphenous vein appears patent and compressible segmentally. Normal flow patterns left common f emoral vein Technically difficult examination secondary to patient immobility Ordering Physician: Jeanne Blount Referring Physician: Jeanne Blount Performed By: Dm Hinds RVT
== END | disposition home or self-care (01) ==
PROVIDERS: Referring Provider Nurse Practitioner Family; Visit Provider Nurse Practitioner Family
DX: R60.0 Localized edema (principal)
CPT/HCPCS: 93971

== ENCOUNTER 2022-08-19 07:56 | Inpatient (IN) | payer MEDICARE, MEDICAID, SELFPAY ==
--- NOTE | 2022-07-17 14:31 | CASEMGMT ---
Received tc from Ana at 's office stating pt to have OR on 08/19/22 and would like to go to [facility] TCU post surgery as he does not have assistance at home. Made her aware pt will need precert. Updated SW of this information.
[2022-08-15 07:56] LABS: Absolute Lymphocyte Count 1.36 X10^3/uL (0.83-4.51); Absolute Neutrophil Count 5.4 X10^3/uL (2.0-7.7); Basophil# 0.05 X10^3/uL; Basophil% 0.6 % (0-1); Eosinophil# 0.59 X10^3/uL; Eosinophils% 7.4 % (0-5); Hematocrit 44.7 % (40-54); Hemoglobin 14.3 g/dL (13.0-16.5); Lymphocyte # 1.36 X10^3/ul (0.83-4.51); Lymphocyte % 17.2 % (19-41); Mean Corpuscular Hgb 27.2 pg (27.0-32.0); Mean Platelet Vol. 9.3 fl (6.2-12.0); Monocyte# 0.55 X10^3/uL; Monocyte% 6.9 % (0-10); NRBC Flagged by Analyzer 0 % (0-5); Neutrophil # 5.35 X10^3/uL (2.7-7.7); Neutrophil % 67.6 % (47-70); Platelet Count 227 K/mm3 (150-450); RBC Distribution Width CV 14.1 % (11.6-14.6); RBC Distribution Width SD 43.7 fl (35.1-43.9); Red Blood Count 5.26 M/mm3 (4.6-6.2); White Blood Count 7.9 K/mm3 (4.4-11.0)
[2022-08-15 08:19] LABS: Anion Gap 6 (5-15); BUN 16 mg/dL (7-18); Calcium,Total 9.4 mg/dL (8.5-10.1); Chloride 110 mmol/L (98-107); Creatinine, Serum 1.33 mg/dL (0.70-1.30); EST Glomerular Filtration Rate 57 mL/min (>60); Est Glom Filt Rate - Afr Amer 69 mL/min (>60); Glucose 108 mg/dL (74-106); Potassium 3.8 mmol/L (3.5-5.1); Sodium Level 144 mmol/L (136-145)
[2022-08-15 08:23] LABS: Prothrombin Time (Protime)PT. 12.9 SECONDS (11.7-14.9)
[2022-08-15 08:24] LABS: Partial Thromboplast Time 29.5 Seconds (24.1-36.2)
[2022-08-15 08:27] LABS: Hemoglobin A1c 5.6 % (3.8-5.6)
[2022-08-15 08:32] LABS: AST(SGOT) 14 U/L (15-37); Alanine Aminotransfer ALT/SGPT 20 U/L (16-61); Albumin, Serum 3.8 g/dL (3.2-5.0); Alkaline Phosphatase 103 U/L (45-117); Bilirubin, Direct 0.21 mg/dL (0.00-0.30); Globulin 3.7 g/dL (2.2-4.2); Protein, Total 7.5 g/dL (6.4-8.2)
[2022-08-16 04:07] LABS: Fructosamine 239 umol/L (0-285)
[2022-08-19] VITALS (14 sets, daily range): BP systolic 97–138; BP diastolic 49–92; PULSE 55–96; RESP 16–18; TEMP 36.3–36.8; O2SAT 95–100; BMI 38.4
[2022-08-19] MEDS: Magnesium 1 GM over 15 mins IV (08:41)
[2022-08-19] MEDS: Lactated Ringers 1,000 ML 15 ML IV (08:41)
[2022-08-19] MEDS: Celecoxib 200 MG Capsule 400 MG PO (08:42)
[2022-08-19] MEDS: Acetaminophen 500 MG Tablet 1000 MG PO ×2 (08:42→20:52)
[2022-08-19] MEDS: Scopolamine 1mg/72hr Patch 1 PATCH TD (08:43)
[2022-08-19] MEDS: Gabapentin 600 MG Tablet PO (08:43)
[2022-08-19 09:40] LABS: Bedside Glucose 112 mg/dL (74-106)
--- NOTE | 2022-08-19 10:30 | KNEE_PTH ---
PATIENT: LUCIAN LORD LOC: MS3 U#:[id number] AGE/SX: 66/M ROOM: MD317 RE08/19/[address]: Dr. Bryant Lobo DO : 1955 BED: 1 DIS: 08/23/2022 SPEC #: [id number] RECD: 08/19/22 15:59 STATUS: LENORE ROLA #: [id number] IRA: 08/19/22 10:[address]: Bryant Lobo DEPT: SURGICAL PATHOLOGY RECD BY: Hudson Salomon ENTERED: 08/20/22 10:09 SP TYPE: TOTAL KNEE OTHR DR: Orin [facility] Tissues: Knee, NOS Procedures: Decalcification bone/plaque Surgery Specimen Level IV HEADER OPERATION: ERAS, total knee replacement robotic arm assist PRE-OP DIAGNOSIS: Osteoarthritis right knee TISSUE SUBMITTED: Debrided tissue and bone right knee MICROSCOPIC DIAGNOSIS Bone and tissue, right knee, total knee replacement/resection: Pieces of bone with degenerative osteoarthritic changes. Fibroadipose tissue, fibroconnective tissue and reactive synovial tissue. Focal changes consistent with pseudogout. BENITEZ:clarence 08/22/2022 MICROSCOPIC DESCRIPTION Slides are reviewed. GROSS DESCRIPTION Received is one container designated bone and soft tissue right knee. The specimen consists of multiple fragments of astudillo-yellow bone measuring in aggregate 11.0 x 10.0 x 3.5 cm. Also in the specimen container are multiple fragments of yellow-white soft tissue measuring in aggregate 9.0 x 9.0 x 3.0 cm. A number of bony fragments contain articular surfaces consistent with tibial plateau and femoral condyle and displaying prominent osteophyte formation, eburnation and bone erosion. Area of soft tissue shows chalky, white deposits. Bore Miner Operator sections are submitted in two cassettes as follows: 1 - soft tissue, 2 - bone after decalcification. / BENITEZ:clarence 08/20/2022 TC:5 CPT: 23119, 82465
[2022-08-19] MEDS: Lactated Ringers 1,000 ML 125 ML IV (10:31)
--- NOTE | 2022-08-19 10:38 | PCM.HP.BLA ---
History and Physical Date of Admission: 08/19/22 [facility] [address] [place] [address] OFFICE VISIT Date of Service:? 08/06/22 MR#: [id number] Acct: [id number] Name:LUCIAN GRAMAJO Rep #: [id number] : 1955 ? ? Provider: Dr. Bryant Lobo, DO Age/Sex:? 66/M ? ? Location: [facility] [place] Status: Signed Intake Vital Signs ? 03/26/2216:07 Height 5 ft 11 in Intake Visit Reasons:?right knee Chief Complaint: right knee pain Is patient in pain?: Yes Pain scale (1-10): 7 Allergies streptomycin Allergy (Verified 08/06/22 13:14) Other Medications cholecalciferol (vitamin D3) 1,250 mcg (50,000 unit) capsule 50,000 unit PO MO SUPPLEMENT #4 caps 01/10/19 [History Confirmed 08/06/22] tamsulosin 0.4 mg capsule 0.4 mg PO QHS PROSTATE #30 caps 01/10/19 [History Confirmed 08/06/22] metoprolol tartrate 25 mg tablet 25 mg PO DAILY BP 04/27/20 [History Confirmed 08/06/22] aspirin 81 mg tablet,delayed release (Adult Low Dose Aspirin) 81 mg PO QODAY SUPPLEMENT 07/11/20 [History Confirmed 08/06/22] cetirizine 10 mg tablet 10 mg PO PRN PRN ALLERGIES 07/11/20 [History Confirmed 08/06/22] mecobalamin (vitamin B12) 1,000 mcg chewable tablet 1,000 mcg PO DAILY SUPPLEMENT 03/11/21 [History Confirmed 08/06/22] acetaminophen 500 mg tablet (Tylenol Extra Strength) 500 mg PO Q6H PRN Pain 05/08/21 [History Confirmed 08/06/22] guaifenesin 1,200 mg tablet, extended release 12 hr (Mucinex) 1,200 mg PO PRN PRN Cough 04/15/22 [History Confirmed 08/06/22] hydrochlorothiazide 12.5 mg capsule 12.5 mg PO DAILY BP 04/15/22 [History Confirmed 08/06/22] losartan 50 mg tablet 50 mg PO DAILY BP 04/15/22 [History Confirmed 08/06/22] meloxicam 15 mg tablet 15 mg PO DAILY PAIN 08/04/22 [History Confirmed 08/06/22] PFSH Medical History? Allergic rhinitis Ambulates with cane Arthritis Back pain BPH (benign prostatic hyperplasia) Class 2 obesity due to excess calories without serious comorbidity with body mass index (BMI) of 39.0 to 39.9 in adult COVID-19 Easy bruising Excessive bleeding History of edema History of pain when walking Hx of skin cancer, basal cell Hypertension Non-smoker Pneumonia due to 2019 novel coronavirus Primary osteoarthritis of right knee Prostate disease Seizures Wears glasses Surgical History? S/P appendectomy Status post surgical removal of malignant neoplasm of skin Family History? Mother CancerFather Cancer Social History? household members:? other details: Patient lives with his son. Smoking Status:? Never smoker alcohol intake:? never substance use type:? does not use HPI right knee Details: Parts of this documentation were recorded by a scribe, this documentation accurately reflects the service provided and the decisions made by me, Dr. Bryant Lobo, DO 08/06/22 0932. LUCIAN LORD is a 66 year old M here today for preop visit right knee total knee arthroscopy robotic assisted DOS:08/19/22. Denies any changes. Patient rates his pain a 7/10 today.? Ortho Exam General General: Yes no acute distress Neurologic: Yes alert and Yes oriented x3 Psychologic: Yes reasonable and appropriate Right Knee Skin/Wound: Yes CDI, No erythema, No ecchymosis and No swelling Contralateral Normal: No Homans Sign: No Knee ROM: No ROM-Extension -20 to 0 (lacking 10) and No ROM-Flexion 0-140 (99) Examination: Yes Med jt line tenderness, Yes Lat jt line tenderness, Yes Crepitus and Yes Pain with extention Stability: NML: Valgus 30 and NML: Varus 30 Patella Grind: Yes KNEE: No acute or gross abnormalities on inspection.? There is no ecchymosis/bruising, erythema, or other signs of acute inflammation or infection.? No patellar instability.? He does have some quadricep wasting compared to the left.? He is soft compartments throughout the lower extremity.? No calf tenderness. Head: Normocephalic Atraumatic Chest: symmetrical rise, non-labored breathing, no audible wheeze Abdomen: no guarding, non-rigid Supplemental Info 04/16/2022 CT scan: Moderate to severe osteoarthrosis tricompartmental of the knee advanced right hip arthrosis 03/26/2022 x-ray right knee moderate to severe joint space narrowing worse in the lateral compartment has progressed particularly on notch view laterally chondrocalcinosis medial lateral 05/18/2019 x-ray right knee: moderate patellofemoral arthrosis with spurring moderate to severe medial and lateral compartment arthrosis with chondrocalcinosis joint space narrowing and spurring Coding Level of Care Code Off vis,est,level 3 Diagnoses Osteoarthritis of right knee? M17.11 Assessment and Plan Assessment and Plan (1) Osteoarthritis of right knee: ?Status:?Acute Plan Patient is here to have check prior to having right TKA. To recall the surgery was canceled d/t redness and swelling of the right foot. The redness and the swelling has since subsided.?Risks, benefits and alternatives of surgery reviewed including but not limited to bleeding, infection, nerve, artery and/or tissue damage, fracture, VTE, mechanical feel of the knee, continued pain, stiffness and expected post-operative course. He has already been schedule for 08/19/22 and he will be an inpatient surgery. Surgical soap and drinks provided to the patient today. Request to go to rehab after surgery because he has stairs at home and doesn't have anyone to help him at home. Follow up 2 weeks post op or sooner if pain, swelling, numbness or associated symptoms, or concerns develop.? All questions answered. Patient in agreement of plan. 08/06/22 1415 <Electronically signed by Bryant Lobo DO> Date Bryant Navarro Signature: Date (if applicable) ? CC: ? ~ I have examined the patient and the H&P has been reviewed. There are no clinical changes since date of exam.
[2022-08-19] MEDS: TXA 1000mg in NS100 100ml (IVPB at Incision) 660 MG IV (11:44)
[2022-08-19] MEDS: dexAMETHasone 10 MG/ML Vial IV (12:00)
[2022-08-19] MEDS: TXA 1000mg in NS100 100ml (IVPB at Closure) 660 MG IV (12:30)
[2022-08-19] MEDS: 0.9% Normal Saline (Pres. free 10 ML Vial (13:41)
[2022-08-19] MEDS: dexAMETHasone 4 MG/ML Vial (13:41)
[2022-08-19] MEDS: Bupivacaine Mpf 0.5% 30 ML VIAL (13:41)
[2022-08-19] MEDS: Epinephrine (1 mg/ml) 1 MG/ML VIAL (13:41)
--- NOTE | 2022-08-19 14:31 | OP.PCM_ITS ---
Operative Report Date of Procedure: 08/19/22 Preoperative diagnosis: Right knee djd with 11 degree flexion contracture Postoperative diagnosis: Same Procedure: Left total knee arthroplasty CT guided Robotic Assisted Implant: Stephenson triathlon press fit, femoral component size 6, tibial baseplate size 7, asymmetric patella size 35, polyethylene X3 size 9 CS Anesthesia: Spinal with adductor canal block Tourniquet time: 12 minutes at 300 mmHg Complications: None Condition: Stable to PACU Estimated blood loss: 200 cc Indication for procedure: This is a 66-year-old male with long standing degenerative joint disease of the knee who has failed conservative treatment and wished to proceed with elective total knee arthroplasty. Risk benefits and alternatives were reviewed including; risk of bleeding, infection, nerve artery and tissue damage, continued pain, postoperative stiffness, venous thromboembolism, need for postoperative rehabilitation, mechanical feel to the knee, and expected postoperative course. The pre- operative CT and templating was performed with component sizing. Procedure: The patient was met in the preoperative holding area. The operative extremity was identified by both patient and physician and was marked. Patient was met by anesthesia. An adductor canal block was placed by anesthesia posto peratively the patient was brought back to the operating room on a wheeled cart and transferred to the operating table in the supine position. Anesthesia was started. A well-padded tourniquet was placed on the operative extremity. The patient was prepped and draped in the usual sterile fashion. A timeout was called to ensure the proper patient procedure and extremity were being contemplated. An esmarch was used to exsanguinate the extremity. The tourniquet was inflated. A 10 blade scalpel was used to make a midline incision down through the skin and subcutaneous tissue. Skin retractors placed. Bovie and Aquamantis were used to perform meticulous hemostasis. full-thickness flaps were elevated medial and lateral along the joint capsule. A deep blade scalpel was used to perform a medial parapatellar arthrotomy. The knee was brought to full extension. A bovie was used to release the soft tissues off the most proximal aspect of the medial tibial plateau, a three-quarter inch curved osteotome was also used in this process. The infrapatellar fat pad was excised. The suprapatellar fat pad was excised partially anteriorolateraly and portion the anterioromedial pad was elevated from the femur. At this point our intra- articular femoral array was placed at a 45 degree angle proximal and posterior to the medial epicondyle. femoral checkpoint was placed at this time. Our tib ial array was placed greater than 1 hands breath below the incision at a 20 degree angle stab incisions were made with a 15 blade scalpel and pins were placed and attached to the tibial array , tibial checkpoint was placed in the proximal tibial metaphysis. Tourniquet was let down. At this point registration kwong were taken throughout the knee . Once the knee was registered we then tensioned the medial and lateral ligaments in extension and 90 degrees of flexion. We then used these numbers to adjust our components within parameters to balance the knee in both flexion and extension once this was done on our monitor we then proceeded with using the robotic arm to make our tibial plateau cut, anterior and posterior chamfer and distal femur cuts. we removed the cut fragments with the use of a bovie and Sylvester, we did use a lamina administrative coordinator to insure we visualized and removed all posterior osteophytes and at this time also used the Aquamantis on the posterior joint capsule. we then trialed and achieved the desired plan with a well-balanced knee. we used the green probe to halie the corresponding tibial rotation based on our CT template. Lug holes were drilled in the femur the tibia preparation was completed with the appropriate sized base plate pinned based on previous rotation halie. An appropriate sized fin punch was used on the tibia and 4 corner drill was used for the press fit component and the patella was prepared by first using a caliper to ensure sufficient bone stock and a patellar reamer to remove the desired amount of bone. lug holes drilled for an asymmetric poly. We then brought the knee through range of motion with excellent patellar tracking. We thoroughly irrigated the knee. Trial components were removed a posterior capsular injection was preformed with our standard cocktail. In addition the aqua Mantis was also used to aid in hemostasis. Betadine rinse was allowed to sit and washed out completely. Components were press-fit into place. Aricept rinse was then used followed by several more liters of irrigation after it was allowed to sit. The joint capsule was closed with #1 Ethibond [id number] followed by Vicryl in the subcutaneous tissues with alex in the skin. Arrays and checkpoints were removed prior to closure all counts were correct stab incisions were closed with a staple standard dressing in the form of Mepilex AG for the main incision and a small Mepilex over the pin holes. Thigh-high CJ hose applied over top of dressing. Patient tolerated the procedure well and was directed to PACU in stable condition . There were no intraoperative complications.
--- NOTE | 2022-08-19 14:35 | RAD_ITS ---
STUDY: X-RAY - RIGHT KNEE REASON FOR EXAM: Male, 66 years old. Post op -- AP and Lateral xray of operative knee in PACU TECHNIQUE: 2 view(s) of the knee. COMPARISON: Comparison is made with prior study dated March 26, 2022. FINDINGS: Normal visualized distal femur. Normal visualized proximal tibia and fibula. Normal proximal tibiofibular articulation. The patient is status post total knee replacement. There is good alignment. Postoperative soft tissue changes. RAD/Knee 1 or 2 Views IMPRESSION: Status post total knee replacement. There is good alignment. Postoperative soft tissue changes. Electronically Signed: Cecilio Cabral MD at 15:11 EDT ,
[2022-08-19] MEDS: Cefazolin 2 GM in 0.9% Normal Saline 100 ML IV ×2 (17:32→23:54)
[2022-08-19] MEDS: 0.9% Normal Saline 1,000 ML 125 ML IV (17:32)
[2022-08-19] MEDS: Tamsulosin HCl 0.4 MG Capsule PO (20:51)
[2022-08-19] MEDS: Senna/Docusate Sodium 1 Tablet 2 TABLET PO (20:52)
[2022-08-20] VITALS (7 sets, daily range): BP systolic 107–134; BP diastolic 58–65; PULSE 60–74; RESP 16–18; TEMP 36.3–36.9; O2SAT 97
[2022-08-20] MEDS: 0.9% Normal Saline 1,000 ML 125 ML IV ×3 (01:23→18:17)
[2022-08-20] MEDS: oxyCODONE 5 MG Tablet PO ×3 (01:24→22:18)
[2022-08-20 06:26] LABS: Hematocrit 36.6 % (40-54); Hemoglobin 11.7 g/dL (13.0-16.5); Mean Corpuscular Hgb 26.9 pg (27.0-32.0); Mean Corpuscular Volume 84.1 fL (80-94); Mean Platelet Vol. 9.9 fl (6.2-12.0); Platelet Count 210 K/mm3 (150-450); RBC Distribution Width CV 13.8 % (11.6-14.6); RBC Distribution Width SD 42.6 fl (35.1-43.9); Red Blood Count 4.35 M/mm3 (4.6-6.2)
[2022-08-20] MEDS: APIXABAN 2.5 MG TABLET (WCH) PO ×2 (06:56→18:17)
[2022-08-20] MEDS: Acetaminophen 500 MG Tablet 1000 MG PO ×3 (06:56→22:18)
[2022-08-20] MEDS: Cefazolin 2 GM in 0.9% Normal Saline 100 ML IV (06:57)
[2022-08-20 06:59] LABS: Anion Gap 7 (5-15); BUN 16 mg/dL (7-18); BUN/Creat Ratio 12.7 RATIO (10-20); Calcium,Total 8.9 mg/dL (8.5-10.1); Chloride 106 mmol/L (98-107); Creatinine, Serum 1.26 mg/dL (0.70-1.30); EST Glomerular Filtration Rate 60 mL/min (>60); Est Glom Filt Rate - Afr Amer 73 mL/min (>60); Estimated Creatinine Clearance 59.76 ml/min; Glucose 149 mg/dL (74-106); Sodium Level 138 mmol/L (136-145)
[2022-08-20] MEDS: Metoprolol Tartrate 25 MG Tablet PO (10:09)
[2022-08-20] MEDS: Losartan Potassium 50 MG Tablet PO (10:11)
[2022-08-20] MEDS: hydroCHLOROthiazide 12.5mg 12.5 MG PO (10:11)
[2022-08-20] MEDS: Senna/Docusate Sodium 1 Tablet 2 TABLET PO (10:12)
--- NOTE | 2022-08-20 12:18 | PN.ORTHO_ITS ---
Subjective Subjective Seen and examined. Doing okay. Complain of pain. Denies fevers chills nausea vomiting shortness of breath or chest pain. Objective Data Objective Data Vital Signs: Vital Signs Temp Pulse Resp BP Pulse Ox O2 Del Method O2 Flow Rate 98.0 F 70 16 110/62 97 Room Air 4 08/20/22 11:00 08/20/22 11:00 08/20/22 11:00 08/20/22 11:00 08/20/22 11:00 08/20/22 11:00 08/19/22 16:00 Oxygen Flow Rate (L/min) 4 Oxygen Delivery Method Room Air Weight: 275 lb 9.245 oz Body Mass Index (BMI) 38.4 Intake & Output: Intake and Output for Last 24 Hours 08/18/22 08/19/22 08/20/22 23:59 23:59 23:59 Intake Total 3342.83 / 3342.83 1313.75 / 1313.75 Balance 3342.83 / 3342.83 1313.75 / 1313.75 Lab / Micro Data Result Diagrams: 08/20/22 06:10 08/20/22 06:10 Labs: Laboratory Results - last 24 hr 08/20/22 06:10: WBC 15.0 H, RBC 4.35 L, Hgb 11.7 L, Hct 36.6 L, MCV 84.1, MCH 26.9 L, MCHC 32.0, RDW Std Deviation 42.6, RDW Coeff of Krystle 13.8, Plt Count 210, MPV 9.9 08/20/22 06:10: Sodium 138, Potassium 4.0, Chloride 106, Carbon Dioxide 25.0, Anion Gap 7, BUN 16, Creatinine 1.26, Estim Creat Clear Calc 59.76, Est GFR (MDRD) Af Amer 73, Est GFR (MDRD) Non-Af 60, BUN/Creatinine Ratio 12.7, Glucose 149 H, Calcium 8.9 Micro: Microbiology 08/15/22 07:33 Swab (Method) Nasal Screen MRSA/MSSA - Final Radiography Diagnostic Testing: Radiology Impression Knee X-Ray 08/19/22 14:35 IMPRESSION: Status post total knee replacement. There is good alignment. Postoperative soft tissue changes. Electronically Signed: Cecilio Cabral MD at 15:11 EDT , Physical Exam Const alert, oriented x3 and no apparent distress Extremity Extremity Narrative: Dressing clean dry intact compartment soft neurovascular intact EHL tibialis anterior gastrocsoleus intact sensation light touch palpable pedal pulses Assessment & Plan Assessment/Plan (1) S/P total knee arthroplasty: PLAN: Plan Patient is doing well he is concerned about his safety returning home as he does live alone and has 12 steps to enter his home and he does not feel that he is able to do this. We will request case management consultation to help in placement for rehab PT OT weightbearing as tolerated encourage full knee extension and flexion m ultiple times per day DVT prophylaxis SCDs Jonathan miranda Pain control oxycodone Tylenol Follow-up in the office 2 weeks
--- NOTE | 2022-08-20 13:58 | CASEMGMT ---
JONATHAN SANDOVAL Assessment: Face to Face with pt for initial transition planning/care coordination assessment. JONATHAN SANDOVAL introduced self and role at [facility], pt voices understanding and consents to assessment. Pt is A/O x4 and answers all questions appropriately at this time. Pt sitting up in chair. JONATHAN SANDOVAL in room multiple times to complete assessment as pt needed to use restroom at each time. Care providers, pharmacy, and demographics verified/updated. Admitting Dx: R total knee with collin PCP:Orin Naranjo Specialists:louisa Lobo Pharmacy: [facility] Retail Insurance: [employer] [facility] Prescription Benefit: yes LNOK: Sony Marcos, son Living Arrangements: Pt lives in a two story duplex with 2 steps to enter and 12 steps between floors. Pt reports he was I in ADL's prior to surgery but had difficulty with the knee and had to stop working. Pt states he does not have anyone at home who can help him post surgery. Transportation: Pt drives self and denies concerns with transportation. Pt son could assist with transportation post surgery. DME/HHC/SNF: Pt has a cane and FWW. He has no hx of HHC but has a nurse who visited from the insurance. Pt denies SNF stays. Pt states he cannot return home post surgery with the steps in his home. He states he cannot move his leg. He is aware that the insurance will need to approve a SNF stay. Updated SW. Pt states no further concerns/needs. CM to follow. Advised pt to ask CM if any further question/concerns/needs arise, voices understanding. Pt Goal: SNF Plan:SNF
[2022-08-20] MEDS: Tamsulosin HCl 0.4 MG Capsule PO (22:17)
[2022-08-21] MEDS: 0.9% Normal Saline 1,000 ML 125 ML IV (02:15)
[2022-08-21 03:50] VITALS: BP 133/53; PULSE 92; RESP 16; TEMP 36.7; O2SAT 98
[2022-08-21] MEDS: Acetaminophen 500 MG Tablet 1000 MG PO ×2 (05:36→13:40)
[2022-08-21] MEDS: APIXABAN 2.5 MG TABLET (WCH) PO ×2 (05:36→18:59)
[2022-08-21 06:04] LABS: Hematocrit 34.6 % (40-54); Mean Corp Hgb Conc 31.8 g/dL (32-36); Mean Platelet Vol. 10.3 fl (6.2-12.0); Platelet Count 178 K/mm3 (150-450); RBC Distribution Width CV 14.5 % (11.6-14.6); Red Blood Count 4.07 M/mm3 (4.6-6.2); White Blood Count 8.1 K/mm3 (4.4-11.0)
[2022-08-21 08:01] VITALS: PULSE 85
[2022-08-21] MEDS: Senna/Docusate Sodium 1 Tablet 2 TABLET PO (08:01)
[2022-08-21] MEDS: Metoprolol Tartrate 25 MG Tablet PO (08:01)
[2022-08-21] MEDS: Losartan Potassium 50 MG Tablet PO (08:01)
--- NOTE | 2022-08-21 08:37 | PCM.PN.ORT ---
Subjective Subjective Seen and examined. Complain of pain in her knee also complaints of continued urinary frequency and discomfort and requesting to have his urine checked. Denies any fever chills nausea vomiting shortness of breath or chest pain. Objective Data Objective Data Vital Signs: Vital Signs Temp Pulse Resp BP Pulse Ox O2 Del Method O2 Flow Rate 98.1 F 85 16 133/53 H 98 Room Air 4 08/21/22 03:50 08/21/22 08:01 08/21/22 03:50 08/21/22 03:50 08/21/22 03:50 08/21/22 07:59 08/19/22 16:00 Oxygen Flow Rate (L/min) 4 Oxygen Delivery Method Room Air Weight: 275 lb 9.245 oz Body Mass Index (BMI) 38.4 Intake & Output: Intake and Output for Last 24 Hours 08/19/22 08/20/22 08/21/22 23:59 23:59 23:59 Intake Total 3342.83 / 3342.83 2863.75 / 2863.75 1627.08 / 1627.08 Output Total 900 / 1300 1650 / 1650 Balance 3342.83 / 3342.83 1963.75 / 1563.75 -22.92 / -22.92 Lab / Micro Data Result Diagrams: 08/21/22 05:35 08/20/22 06:10 Labs: Laboratory Results - last 24 hr 08/21/22 05:35: WBC 8.1, RBC 4.07 L, Hgb 11.0 L, Hct 34.6 L, MCV 85.0, MCH 27.0, MCHC 31.8 L, RDW Std Deviation 44.0 H, RDW Coeff of Krystle 14.5, Plt Count 178, MPV 10.3 Micro: Microbiology 08/15/22 07:33 Swab (Method) Nasal Screen MRSA/MSSA - Final Physical Exam Const alert, oriented x3 and no apparent distress Extremity Extremity Narrative: Right knee dressing clean dry intact compartment soft neurovascular intact EHL tibialis anterior gastrocsoleus intact station light touch 2 out of 4 pedal pulses Assessment & Plan Assessment/Plan (1) S/P total knee arthroplasty: (2) Dysuria: (3) Urinary frequency: PLAN: Plan Postop day #2 right total knee arthroplasty PT OT weightbearing as tolerated Oxycodone Tylenol Eliquis SCDs CJ hose Urinary frequency and dysuria we will check urinalysis She does not feel comfortable going home at this point requesting rehab software engineering manager consulted DC planning to rehab
--- NOTE | 2022-08-21 08:40 | PCM.TXEXTCAR ---
Diet Diet Order/Speech Therapy: 08/19/22 17:04 Diet: Regular - General Is pt able to select menu?: Yes Wound(s) RIGHT KNEE: Wound Type: Surgical Incision Therapies Weight Bearing: Weight bearing as tolerated Problem/Diagnosis (1) S/P total knee arthroplasty: Status: Acute Code(s): Z96.659 - Presence of unspecified artificial knee joint (2) Dysuria: Status: Acute Code(s): R30.0 - Dysuria (3) Urinary frequency: Status: Acute Code(s): R35.0 - Frequency of micturition Plan Postop day #2 right total knee arthroplasty PT OT weightbearing as tolerated Oxycodone Tylenol Eliquis SCDs CJ hose Urinary frequency and dysuria we will check urinalysis She does not feel comfortable going home at this point requesting rehab fleet dispatch manager consulted DC planning to rehab Allergies/Procedures Done in Hospital Allergies streptomycin Allergy (Verified 08/19/22 08:29) Other NUMBNESS Type of Care/Length of Stay Estimated LOS: Convalescent Care Less Than 30 days Type of Care Needed: Skilled Rehab Potential: Good Prognosis: Good Additional Orders/Day of Discharge Day of Discharge: 08/21/22 Discharge Plan Admission Admit Date/Time: 08/19/22 07:56 Primary Reason for Your Visit: Right total knee arthroplasty Attending Provider: Bryant Lobo [facility] Additional Instructions / Restrictions: Ice and elevate lower extremities 2 weeks while not ambulating. Ambulation is encouraged. Weight bearing as tolerated. Use assistive devise for stability. Encourage FULL knee extension and flexion 1 time EVERY time you get up and down and MULTIPLE times per day. No showering 72 hours after surgery. Begin showering postop day #3. Remove the dressing prior to shower and gently wash with warm water and antibacterial soap then pat dry and place abdominal pad (or plain gauze) and CJ hose over top. This is to be done daily. Do not submerge for 3 weeks. If not showering daily after the initial 72 hours then you must clean incision and change dressing daily. Do not allow animals near the incision area. Keep clean. Follow anti-coagulation recommendations as prescribed. Do not take any NSAIDs while on blood thinner. Do not take any additional narcotic pain medication other than what was prescribed on your surgery day without discussing with physician. Narcotic medication can be addictive. Do not drink alcohol while taking narcotics. Supplement narcotic prescription with acetaminophen 1000 mg 4 times a day. Start physical therapy. If you are not currently scheduled for physical therapy or you are unsure of appointment time please call office [facility] to arrange. Call Dr. Lobo with any concerns. Discharge Orders/Prescriptions Prescriptions: New oxycodone 5 mg Tablet 5 - 10 mg PO Q4H PRN PRN (Reason: Pain Score 4-10) 7 Days Qty: 60 0RF Eliquis 5 mg Tablet 2.5 mg PO 0700,1900 Qty: 30 0RF Continued cholecalciferol (vitamin D3) 50,000 unit capsule 50,000 unit PO MO Qty: 4 Label Comments: TAKE 1 CAPSULE BY MOUTH ONCE A WEEK tamsulosin 0.4 mg capsule 0.4 mg PO QHS Qty: 30 metoprolol tartrate 25 mg tablet 25 mg PO DAILY cetirizine 10 mg tablet 10 mg PO PRN PRN (Reason: ALLERGIES) Label Comments: TAKE 1 TABLET BY MOUTH ONCE DAILY aspirin [Adult Low Dose Aspirin] 81 mg tablet,delayed release (DR/EC) 81 mg PO QODAY mecobalamin (vitamin B12) 1,000 mcg tablet,chewable 1,000 mcg PO DAILY acetaminophen [Tylenol Extra Strength] 500 mg tablet 500 mg PO Q6H PRN (Reason: Pain) losartan 50 mg tablet 50 mg PO DAILY Label Comments: TAKE 1 TABLET BY MOUTH ONCE DAILY hydrochlorothiazide 12.5 mg capsule 12.5 mg PO DAILY Label Comments: TAKE 1 CAPSULE BY MOUTH ONCE DAILY NEEDED FOR LEG SWELLING Mucinex 1,200 mg Tablet Extended Release 12hr 1,200 mg PO PRN PRN (Reason: Cough) Discontinued meloxicam 15 mg tablet 15 mg PO DAILY Referrals / Follow Up: [facility],Orin Rendon [Primary Care Provider] -
--- NOTE | 2022-08-21 08:49 | PCM.DC ---
Discharge Instructions Diet Discharge Diet: No restrictions Dressing / Incision Call your doctor if you observe: Shortness of breath and Chest pain Additional Dressing/Incision Instructions:: Ice and elevate lower extremities 2 weeks while not ambulating. Ambulation is encouraged. Weight bearing as tolerated. Use assistive devise for stability. Encourage FULL knee extension and flexion 1 time EVERY time you get up and down and MULTIPLE times per day. No showering 72 hours after surgery. Begin showering postop day #3. Remove the dressing prior to shower and gently wash with warm water and antibacterial soap then pat dry and place abdominal pad (or plain gauze) and CJ hose over top. This is to be done daily. Do not submerge for 3 weeks. If not showering daily after the initial 72 hours then you must clean incision and change dressing daily. Do not allow animals near the incision area. Keep clean. Follow anti-coagulation recommendations as prescribed. Do not take any NSAIDs while on blood thinner. Do not take any additional narcotic pain medication other than what was prescribed on your surgery day without discussing with physician. Narcotic medication can be addictive. Do not drink alcohol while taking narcotics. Supplement narcotic prescription with acetaminophen 1000 mg 4 times a day. Start physical therapy. If you are not currently scheduled for physical therapy or you are unsure of appointment time please call office DIDI to arrange. Call Dr. Lobo with any concerns. Follow Up Care Please Follow Up With: Bryant Lobo DO When: 2 weeks Test Results: Test results from this visit will be discussed in further detail at your follow-up appointment, if applicable. Discharge Plan Admission Admit Date/Time: 08/19/22 07:56 Primary Reason for Your Visit: Right total knee arthroplasty Attending Provider: Bryant Lobo [facility] Inst[facility] Additional Instructions / Restrictions: Ice and elevate lower extremities 2 weeks while not ambulating. Ambulation is encouraged. Weight bearing as tolerated. Use assistive devise for stability. Encourage FULL knee extension and flexion 1 time EVERY time you get up and down and MULTIPLE times per day. No showering 72 hours after surgery. Begin showering postop day #3. Remove the dressing prior to shower and gently wash with warm water and antibacterial soap then pat dry and place abdominal pad (or plain gauze) and CJ hose over top. This is to be done daily. Do not submerge for 3 weeks. If not showering daily after the initial 72 hours then you must clean incision and change dressing daily. Do not allow animals near the incision area. Keep clean. Follow anti-coagulation recommendations as prescribed. Do not take any NSAIDs while on blood thinner. Do not take any additional narcotic pain medication other than what was prescribed on your surgery day without discussing with physician. Narcotic medication can be addictive. Do not drink alcohol while taking narcotics. Supplement narcotic prescription with acetaminophen 1000 mg 4 times a day. Start physical therapy. If you are not currently scheduled for physical therapy or you are unsure of appointment time please call office DIDI to arrange. Call Dr. Lobo with any concerns. Discharge Orders/Prescriptions Prescriptions: New oxycodone 5 mg Tablet 5 - 10 mg PO Q4H PRN PRN (Reason: Pain Score 4-10) 7 Days Qty: 60 0RF Eliquis 5 mg Tablet 2.5 mg PO 0700,1900 Qty: 30 0RF Continued cholecalciferol (vitamin D3) 50,000 unit capsule 50,000 unit PO MO Qty: 4 Label Comments: TAKE 1 CAPSULE BY MOUTH ONCE A WEEK tamsulosin 0.4 mg capsule 0.4 mg PO QHS Qty: 30 metoprolol tartrate 25 mg tablet 25 mg PO DAILY cetirizine 10 mg tablet 10 mg PO PRN PRN (Reason: ALLERGIES) Label Comments: TAKE 1 TABLET BY MOUTH ONCE DAILY aspirin [Adult Low Dose Aspirin] 81 mg tablet,delayed release (DR/EC) 81 mg PO QODAY mecobalamin (vitamin B12) 1,000 mcg tablet,chewable 1,000 mcg PO DAILY acetaminophen [Tylenol Extra Strength] 500 mg tablet 500 mg PO Q6H PRN (Reason: Pain) losartan 50 mg tablet 50 mg PO DAILY Label Comments: TAKE 1 TABLET BY MOUTH ONCE DAILY hydrochlorothiazide 12.5 mg capsule 12.5 mg PO DAILY Label Comments: TAKE 1 CAPSULE BY MOUTH ONCE DAILY NEEDED FOR LEG SWELLING Mucinex 1,200 mg Tablet Extended Release 12hr 1,200 mg PO PRN PRN (Reason: Cough) Discontinued meloxicam 15 mg tablet 15 mg PO DAILY [facility] - [facility]position Discharge Orders: Discharge Patient (Routine); Ordered 08/21/22 Ordered By: Dr. Bryant Lobo
[2022-08-21 09:00] VITALS: BP 142/63; PULSE 85; RESP 18; TEMP 36.6; O2SAT 97
[2022-08-21] MEDS: oxyCODONE 5 MG Tablet PO ×2 (10:45→19:40)
[2022-08-21 11:24] LABS: Bacteria 0 SEEN /hpf (None Seen); Mucous, Urine 0 SEEN /hpf (<or=2+); White Blood Cells 0 SEEN /hpf (0-5)
[2022-08-21 11:25] LABS: Color, Urine Yellow (Yellow); Glucose, Dipstick Normal (Normal); Ketone-Dipstick Negative (Negative); Leukocyte Esterase-Dipstick Negative /ul (Negative); Nitrite-Dipstick Negative (Negative); Occult Blood-Urine 10 /ul (Negative); Protein-Dipstick Negative (Negative); Urine Bilirubin Dipstick Negative (Negative); Urine Clarity Sl. Cloudy (Clear); Urine Urobilinogen Normal (Normal)
[2022-08-21 11:33] LABS: Red Blood Cells-Urine 0-5 SEEN /hpf (0-5); Squamous Epithelial Cells - UA 0-5 SEEN /hpf (0-5)
--- NOTE | 2022-08-21 11:45 | CASEMGMT ---
Addendum entered by Lila Soni 08/21/22 14:08: Social Work TCU is able to accept pt and precert has been started at this time. Pt updated and agreeable to DC plan. FRAN Uribe Original Note: Social Work SW met with pt and introduced self and role of SW. Pt confirms that he cannot return home alone at discharge and is requesting SNF stay for rehab prior to returning home. A list of SNF providers including quality and resource use data and consistent with the patient?s preferred geographic region, medical needs, and insurance network were provided from the [employer] Guide. Preferred provider is 1. [facility] 2. [facility]. Referral made to Michelle in TCU. SW will await determination of acceptance. Plan: TCU, pending acceptance FRAN Uribe
[2022-08-21 14:06] VITALS: BP 131/56; PULSE 101; RESP 18; TEMP 37; O2SAT 99
[2022-08-21 19:44] VITALS: BP 154/75; PULSE 108; RESP 18; TEMP 37.3; O2SAT 98
[2022-08-21] MEDS: Tamsulosin HCl 0.4 MG Capsule PO (21:27)
[2022-08-22 01:14] VITALS: BP 138/63; PULSE 100; RESP 18; TEMP 37.2; O2SAT 99
[2022-08-22 06:14] VITALS: BP 143/68; PULSE 99; RESP 18; TEMP 37.2; O2SAT 100
[2022-08-22] MEDS: Acetaminophen 500 MG Tablet 1000 MG PO ×3 (06:34→21:41)
[2022-08-22] MEDS: APIXABAN 2.5 MG TABLET (WCH) PO ×2 (06:34→18:19)
[2022-08-22 07:36] LABS: Hematocrit 33.9 % (40-54); Hemoglobin 10.7 g/dL (13.0-16.5); Mean Corp Hgb Conc 31.6 g/dL (32-36); Mean Corpuscular Hgb 26.7 pg (27.0-32.0); Mean Corpuscular Volume 84.5 fL (80-94); Platelet Count 189 K/mm3 (150-450); RBC Distribution Width CV 14.7 % (11.6-14.6); Red Blood Count 4.01 M/mm3 (4.6-6.2); White Blood Count 9.9 K/mm3 (4.4-11.0)
--- NOTE | 2022-08-22 09:34 | CASEMGMT ---
JONATHAN SANDOVAL made aware by therapy that pt had an appt at [facility] today at 11am. [place] [facility] [place], spoke with Rossy, appt cancelled as pt is hospitalized.
[2022-08-22] MEDS: oxyCODONE 5 MG Tablet PO ×3 (09:53→21:43)
[2022-08-22] MEDS: hydroCHLOROthiazide 12.5mg 12.5 MG PO (09:53)
[2022-08-22 09:54] VITALS: BP 122/64; PULSE 144
[2022-08-22] MEDS: Losartan Potassium 50 MG Tablet PO (09:54)
[2022-08-22] MEDS: Senna/Docusate Sodium 1 Tablet 2 TABLET PO ×2 (09:54→21:41)
[2022-08-22] MEDS: Metoprolol Tartrate 25 MG Tablet PO (09:54)
[2022-08-22] MEDS: 0.9% Saline Lock 10 ML Syringe IV (09:54)
[2022-08-22 12:00] VITALS: BP 124/68; PULSE 110; RESP 16; TEMP 36.7; O2SAT 98
--- NOTE | 2022-08-22 13:16 | PN.ORTHO_ITS ---
Subjective Subjective He has complaint of pain in his knee 7 out of 10 however he is doing some ambulating with physical therapy he states he does not feel ready to go home. His bigger complaint however is his painful frequent urination that is been ongoing since surgery. He feels it is very difficult to go. he denies fever chills nausea vomitting chest pain or shortness of breath. Objective Data Objective Data Vital Signs: Vital Signs Temp Pulse Resp BP Pulse Ox O2 Del Method O2 Flow Rate 98.9 F 144 H 18 122/64 H 100 Room Air 4 08/22/22 06:14 08/22/22 09:54 08/22/22 06:14 08/22/22 09:54 08/22/22 06:14 08/22/22 06:14 08/19/22 16:00 Oxygen Flow Rate (L/min) 4 Oxygen Delivery Method Room Air Weight: 275 lb 9.245 oz Body Mass Index (BMI) 38.4 Intake & Output: Intake and Output for Last 24 Hours 08/20/22 08/21/22 08/22/22 23:59 23:59 23:59 Intake Total 2863.75 / 2863.75 1627.08 / 1627.08 Output Total 900 / 1300 2350 / 2850 1100 / 1100 Balance 1963.75 / 1563.75 -722.92 / -1222.92 -1100 / -1100 Lab / Micro Data Result Diagrams: 08/22/22 06:25 08/20/22 06:10 Labs: Laboratory Results - last 24 hr 08/22/22 06:25: WBC 9.9, RBC 4.01 L, Hgb 10.7 L, Hct 33.9 L, MCV 84.5, MCH 26.7 L, MCHC 31.6 L, RDW Std Deviation 45.0 H, RDW Coeff of Krystle 14.7 H, Plt Count 189, MPV 10.0 Micro: Microbiology 08/15/22 07:33 Swab (Method) Nasal Screen MRSA/MSSA - Final Physical Exam Const alert, oriented x3 and no apparent distress Extremity Extremity Narrative: Right knee dressing clean dry intact compartment soft neurovascular intact EHL tibialis anterior gastrocsoleus intact station light touch 2 out of 4 pedal pulses Assessment & Plan Assessment/Plan (1) S/P total knee arthroplasty: (2) Dysuria: (3) Urinary frequency: PLAN: Plan Postop day #3 right total knee arthroplasty PT OT weightbearing as tolerated Oxycodone Tylenol Eliquis SCDs CJ miranda Urinary frequency and dysuria urinalysis was not indicative of infection however he did have blood. At this point he is requesting to have urology consult, did place a consult for Dr. Khan He continues to not feel comfortable going home at this point requesting rehab certified dietary manager consulted and we are awaiting approval from his insurance company [employer] planning to rehab
--- NOTE | 2022-08-22 14:44 | CHAPLAIN ---
Type of Pastoral Visit _x__ Initial Visit ___ Follow-up Visit ___ On-call Visit ___ General Patient Visit ___ Spiritual Assessment ___ Family Conference ___ Bereavement ___ Rapid Response ___ Code Blue ___ Other (describe below) Pastoral Care Referral From __x_ Patient ___ Family ___ Nurse ___ Physician ___ Check Processing Clerk ___ Magazine Keeper ___ Other (describe below) Sacrament/Intervention _x__ Active listening ___ Anointing ___ Restoration ___ Bereavement ___ Communion _x__ Maggi exploration ___ _x__ Life review _x__ Prayer ___ Reconciliation ___ Sacrament of Sick ___ Supportive presence ___ Wedding ___ Other (describe below) Pastoral Comments
[2022-08-22 15:13] LABS: ALB/GLOB Ratio 0.9 RATIO (0.9-2.4); AST(SGOT) 21 U/L (15-37); Alanine Aminotransfer ALT/SGPT 18 U/L (16-61); Albumin, Serum 3.2 g/dL (3.2-5.0); Alkaline Phosphatase 73 U/L (45-117); Anion Gap 5 (5-15); BUN 13 mg/dL (7-18); BUN/Creat Ratio 12.6 RATIO (10-20); Calcium,Total 9.1 mg/dL (8.5-10.1); Chloride 107 mmol/L (98-107); Creatinine, Serum 1.03 mg/dL (0.70-1.30); EST Glomerular Filtration Rate 76 mL/min (>60); Est Glom Filt Rate - Afr Amer 92 mL/min (>60); Estimated Creatinine Clearance 73.11 ml/min; Globulin 3.4 g/dL (2.2-4.2); Glucose 117 mg/dL (74-106); Potassium 3.4 mmol/L (3.5-5.1); Protein, Total 6.6 g/dL (6.4-8.2); Sodium Level 139 mmol/L (136-145)
--- NOTE | 2022-08-22 16:02 | CASEMGMT ---
Social Work SW received message from Michelle in TCU that insurance has denied pt admission to TCU. Peer to Peer option is available. MARCO spoke with Dr. Hoang and updated on situation. Dr. Hoang plans to complete peer to peer. Peer to peer is available and can be scheduled up until noon on Thursday. [phone] option 4. Provide pt name and . Ref# [id number]. MARCO met with pt to informed of insurance denial and the physician would complete peer to peer. Discussed back up plan with pt including going to jail under intermediate level of care and [employer] insurance or returning home. Pt is uncertain at this time what he would prefer. A list of SNF providers including quality and resource use data and consistent with the patient?s preferred geographic region, medical needs, and insurance network were provided from the [employer] Guide. Pt reviewed list and [facility] is preferred provider. If peer to peer is not successful in overturning denial and pt still wishes to go to SNF, a new referral and precert with secondary insurance will need to be obtained. FRAN Uribe
--- NOTE | 2022-08-22 16:10 | CASEMGMT ---
Discharge Planning SNF list given to patient. Marie Greenberg
--- NOTE | 2022-08-22 16:26 | CON.PCM.UR_ITS ---
Assessment & Plan Assessment/Plan (1) Urinary frequency: PLAN: 66-year-old male with BPH obstruction history of slightly enlarged prostat e on Flomax having more difficulty going to the bathroom after anesthetic and the procedure which is quite common explained to the patient. He is already on maximum dose of Flomax we can up this any further, we can check the urine to make sure he does not have an infection I think it be reasonable to start him on Proscar 5 mg daily I will also order the nurses to check a bladder scan make sure he is not retaining urine. HPI Consult Data Date of Consult: 08/22/22 HPI Narrative Reason for Consultation: Difficulty with urination HPI Narrative: LUCIAN LORD, is a 66 M who who underwent a knee replacement is in the [facility] and is complaining of more difficulty going to the bathroom straining having a bowel harder. He he typically takes Flomax he is already on the maximum dose of Flomax 0.8 mg nightly. [facility] Medical History Allergic rhinitis Ambulates with cane Arthritis Back pain BPH (benign prostatic hyperplasia) Class 2 obesity due to excess calories without serious comorbidity with body mass index (BMI) of 39.0 to 39.9 in adult COVID-19 Easy bruising Excessive bleeding History of edema History of pain when walking Hx of skin cancer, basal cell Hypertension Non-smoker Pneumonia due to 2019 novel coronavirus Primary osteoarthritis of right knee Prostate disease Seizures Wears glasses Home Medications cholecalciferol (vitamin D3) 1,250 mcg (50,000 unit) capsule 50,000 unit PO MO SUPPLEMENT #4 caps 01/10/19 [History Last Taken Unknown] tamsulosin 0.4 mg capsule 0.4 mg PO QHS PROSTATE #30 caps 01/10/19 [History Last Taken Unknown] metoprolol tartrate 25 mg tablet 25 mg PO DAILY BP 04/27/20 [History Last Taken 08/19/22] aspirin 81 mg tablet,delayed release (Adult Low Dose Aspirin) 81 mg PO QODAY SUPPLEMENT 07/11/20 [History Last Taken 04/22/22] cetirizine 10 mg tablet 10 mg PO PRN PRN ALLERGIES 07/11/20 [History Last Taken Unknown] mecobalamin (vitamin B12) 1,000 mcg chewable tablet 1,000 mcg PO DAILY SUPPLEMENT 03/11/21 [History Last Taken Unknown] acetaminophen 500 mg tablet (Tylenol Extra Strength) 500 mg PO Q6H PRN Pain [History Last Taken Unknown] guaifenesin 1,200 mg tablet, extended release 12 hr (Mucinex) 1,200 mg PO PRN PRN Cough 04/15/22 [History Last Taken Unknown] hydrochlorothiazide 12.5 mg capsule 12.5 mg PO DAILY BP 04/15/22 [History Last Taken Unknown] losartan 50 mg tablet 50 mg PO DAILY BP 04/15/22 [History Last Taken 04/29/22] apixaban 5 mg tablet (Eliquis) 2.5 mg PO 0700,1900 #30 tabs 08/21/22 [Rx Last Taken Unknown] oxycodone 5 mg tablet 5 - 10 mg PO Q4H PRN PRN Pain Score 4-10 7 days #60 tabs 08/21/22 [Rx Last Taken Unknown] Allergy/AdvReac Type Severity Reaction Status Date / Time streptomycin Allergy Other Verified 08/19/22 08:29 Family History Mother Cancer Father Cancer Surgical History S/P appendectomy Status post surgical removal of malignant neoplasm of skin Social History household members: other details: Patient lives with his son. Smoking Status: Never smoker alcohol intake: never substance use type: does not use Physical Exam Const alert and oriented x3 General Appearance: cooperative HEENT normocephalic, head/scalp atraumatic, EAC's normal and TM's normal bilaterally Eyes PERRL and EOMs intact bilaterally Pupil: sluggish Neck no lymphadenopathy, supple and no JVD General: trachea midline Lymph Lymphatic: no lymphadenopathy noted, lymphedema and lymphadenopathy Resp normal respiratory effort, normal air movement and clear to auscultation bilaterally Cardio regular rate, regular rhythm and peripheral pulses 2+ throughout GI soft to palpation, non-tender and non-distended Extremity normal capillary refill and no clubbing, cyanosis or edema General Extremity: no tenderness to palpation of joints or extremities Skin no rashes or lesions noted General Skin Exam: turgor normal Lesions: no lesions Rashes: no rashes Neuro CN's II-XII intact bilaterally Speech: speech normal Motor Exam: strength 5/5 throughout; Negative for general weakness Psych thought process normal, cooperative and affect normal Appearance: appropriate Medical Records Data Attestation: I reviewed the patient's medical records Lab / Micro Data Result Diagrams: 08/22/22 06:25 08/22/22 14:30 Labs: Laboratory Results - last 24 hr 08/22/22 06:25: WBC 9.9, RBC 4.01 L, Hgb 10.7 L, Hct 33.9 L, MCV 84.5, MCH 26.7 L, MCHC 31.6 L, RDW Std Deviation 45.0 H, RDW Coeff of Krystle 14.7 H, Plt Count 189, MPV 10.0 08/22/22 14:30: Sodium 139, Potassium 3.4 L, Chloride 107, Carbon Dioxide 27.0, Anion Gap 5, BUN 13, Creatinine 1.03, Estim Creat Clear Calc 73.11, Est GFR (M DRD) Af Amer 92, Est GFR (MDRD) Non-Af 76, BUN/Creatinine Ratio 12.6, Glucose 117 H, Calcium 9.1, Total Bilirubin 1.30 H, AST 21, ALT 18, Alkaline Phosphatase 73, Total Protein 6.6, Albumin 3.2, Globulin 3.4, Albumin/Globulin Ratio 0.9
--- NOTE | 2022-08-22 17:33 | CASEMGMT ---
Social Work Per Dr. Hoang, pt peer to peer was sucessful and denial was overturned. Pt approved for TCU. SW updated Michelle in TCU who states pt can admit. MARCO updated JONATHAN Siddiqui who states Dr. Hoang would like d/c on Thursday. TCU notified. MARCO met with pt and updated on above. Pt agreeable to d/c to TCU. Plan: TCU, when medically ready FRAN Uribe
[2022-08-22 18:00] VITALS: BP 151/71; PULSE 100; RESP 18; TEMP 37.2; O2SAT 98
[2022-08-22] MEDS: Tamsulosin HCl 0.4 MG Capsule 0.8 MG PO (21:41)
[2022-08-22 23:44] VITALS: BP 142/72; PULSE 97; RESP 18; TEMP 36.3; O2SAT 98
[2022-08-23 04:15] VITALS: BP 137/70; PULSE 90; RESP 18; TEMP 36.7; O2SAT 97
--- NOTE | 2022-08-23 05:58 | NURSING ---
Patient only voided 5o ml in 9 hours, bladder scanned for 1200, straight cathed per physician order, removed 1200 clear straw color urine, sample sent. Procedure well tolerated.
[2022-08-23] MEDS: oxyCODONE 5 MG Tablet PO (06:16)
[2022-08-23] MEDS: Acetaminophen 500 MG Tablet 1000 MG PO ×2 (06:17→14:08)
[2022-08-23] MEDS: APIXABAN 2.5 MG TABLET (WCH) PO (06:17)
[2022-08-23 08:30] VITALS: BP 128/59; PULSE 106; RESP 18; TEMP 36.9; O2SAT 97
[2022-08-23 09:00] VITALS: PULSE 106
[2022-08-23] MEDS: Finasteride 5 MG Tablet PO (09:00)
[2022-08-23] MEDS: Senna/Docusate Sodium 1 Tablet 2 TABLET PO (09:00)
[2022-08-23] MEDS: Losartan Potassium 50 MG Tablet PO (09:00)
[2022-08-23] MEDS: Metoprolol Tartrate 25 MG Tablet PO (09:00)
[2022-08-23] MEDS: hydroCHLOROthiazide 12.5mg 12.5 MG PO (09:02)
--- NOTE | 2022-08-23 12:48 | PCM.TXEXTCAR ---
Diet Diet Order/Speech Therapy: 08/19/22 17:04 Diet: Regular - General Is pt able to select menu?: Yes Routine Orders/Code Status Routine Lab Work: BMP and UA Wound(s) RIGHT KNEE: Wound Type: Surgical Incision (right lower extremity) Dressing Change: Dry Sterile Dressing (Post-op dressing to be changed day 72 hours post-op / day 4 and then cleansed daily with anti-microbial soap and water and covered with sterile dressing) Therapies Weight Bearing: Weight bearing as tolerated Extremity Affected:: Right Lower Physical Therapy: Eval and Treat Occupational Therapy: Eval and Treat Problem/Diagnosis (1) Other acute postprocedural pain: Status: Acute Code(s): G89.18 - Other acute postprocedural pain (2) S/P total knee arthroplasty: Status: Acute Code(s): Z96.659 - Presence of unspecified artificial knee joint (3) Urinary hesitancy: Status: Acute Code(s): R39.11 - Hesitancy of micturition Plan Urology was consulted regarding and therefore can continue to update urology with patient symptoms. Consider bladder scan for residual volume and would again speak with Urology regarding possible catheterization. Allergies/Procedures Done in Hospital Allergies streptomycin Allergy (Verified 08/19/22 08:29) Other NUMBNESS Type of Care/Length of Stay Estimated LOS: Convalescent Care Less Than 30 days Type of Care Needed: Skilled Rehab Potential: Good Prognosis: Good Additional Orders/Day of Discharge Day of Discharge: 08/21/22 Dietary and Speech Recommendations Dietitian Recommendations/Changes: normal / regular diet Follow Up Care Please Follow Up With: Bryant Lobo DO When: 6 weeks post-op Please Follow Up With: Carlos Kerr PA When: 2 weeks post-op Discharge Plan Admission Admit Date/Time: 08/19/22 07:56 Primary Reason for Your Visit: Right total knee arthroplasty Attending Provider: Bryant Lobo Primary Care Provider: [facility] Consulting Providers: Lion Khan Instructions Additional Instructions / Restrictions: Ice and elevate lower extremities 2 weeks while not ambulating. Ambulation is encouraged. Weight bearing as tolerated. Use assistive devise for stability. Encourage FULL knee extension and flexion 1 time EVERY time you get up and down and MULTIPLE times per day. No showering 72 hours after surgery. Begin showering postop day #3. Remove the dressing prior to shower and gently wash with warm water and antibacterial soap then pat dry and place abdominal pad (or plain gauze) and CJ hose over top. This is to be done daily. Do not submerge for 3 weeks. If not showering daily after the initial 72 hours then you must clean incision and change dressing daily. Do not allow animals near the incision area. Keep clean. Follow anti-coagulation recommendations as prescribed. Do not take any NSAIDs while on blood thinner. Do not take any additional narcotic pain medication other than what was prescribed on your surgery day without discussing with physician. Narcotic medication can be addictive. Do not drink alcohol while taking narcotics. Supplement narcotic prescription with acetaminophen 1000 mg 4 times a day. Start physical therapy. If you are not currently scheduled for physical therapy or you are unsure of appointment time please call office [facility] to arrange. Call Dr. Lobo with any concerns. Discharge Orders/Prescriptions Prescriptions: New oxycodone 5 mg Tablet 5 - 10 mg PO Q4H PRN PRN (Reason: Pain Score 4-10) 7 Days Qty: 60 0RF Eliquis 5 mg Tablet 2.5 mg PO 0700,1900 Qty: 30 0RF Continued cholecalciferol (vitamin D3) 50,000 unit capsule 50,000 unit PO MO Qty: 4 Label Comments: TAKE 1 CAPSULE BY MOUTH ONCE A WEEK tamsulosin 0.4 mg capsule 0.4 mg PO QHS Qty: 30 metoprolol tartrate 25 mg tablet 25 mg PO DAILY cetirizine 10 mg tablet 10 mg PO PRN PRN (Reason: ALLERGIES) Label Comments: TAKE 1 TABLET BY MOUTH ONCE DAILY aspirin [Adult Low Dose Aspirin] 81 mg tablet,delayed release (DR/EC) 81 mg PO QODAY mecobalamin (vitamin B12) 1,000 mcg tablet,chewable 1,000 mcg PO DAILY acetaminophen [Tylenol Extra Strength] 500 mg tablet 500 mg PO Q6H PRN (Reason: Pain) losartan 50 mg tablet 50 mg PO DAILY Label Comments: TAKE 1 TABLET BY MOUTH ONCE DAILY hydrochlorothiazide 12.5 mg capsule 12.5 mg PO DAILY Label Comments: TAKE 1 CAPSULE BY MOUTH ONCE DAILY NEEDED FOR LEG SWELLING Mucinex 1,200 mg Tablet Extended Release 12hr 1,200 mg PO PRN PRN (Reason: Cough) Discontinued meloxicam 15 mg tablet 15 mg PO DAILY [facility] Provider[facility] - Disposition Disposition (needs filled in before D/C Order can be placed): Inpatient Rehab Unit/Facility
--- NOTE | 2022-08-23 13:04 | PCM.DC.SUM ---
Providers Date of Admission: 08/19/22 Primary Care Physician: [facility] Consultations 08/22/22 13:13 Consult: Urology Routine Consulting Provider: Lion Khan Reason for Consult: dysuria EMERGENT Consult: No MD Notified: Yes Date Notified: 08/22/22 Time Notified: 13:13 Method of Notification: Verbal Reason For Visit: RT TOTAL KNEE W CELIA Diagnosis Discharge Diagnosis (1) Other acute postprocedural pain: Status: Acute Code(s): G89.18 - Other acute postprocedural pain (2) S/P total knee arthroplasty: Status: Acute Code(s): Z96.659 - Presence of unspecified artificial knee joint (3) Urinary hesitancy: Status: Acute Code(s): R39.11 - Hesitancy of micturition Plan Urology was consulted regarding and therefore can continue to update urology with patient symptoms. Consider bladder scan for residual volume and would again speak with Urology regarding possible catheterization. Medications at Discharge Home Medications cholecalciferol (vitamin D3) 1,250 mcg (50,000 unit) capsule 50,000 unit PO MO SUPPLEMENT #4 caps 01/10/19 tamsulosin 0.4 mg capsule 0.4 mg PO QHS PROSTATE #30 caps 01/10/19 metoprolol tartrate 25 mg tablet 25 mg PO DAILY BP 04/27/20 aspirin 81 mg tablet,delayed release (Adult Low Dose Aspirin) 81 mg PO QODAY SUPPLEMENT 07/11/20 cetirizine 10 mg tablet 10 mg PO PRN PRN ALLERGIES 07/11/20 mecobalamin (vitamin B12) 1,000 mcg chewable tablet 1,000 mcg PO DAILY SUPPLEMENT 03/11/21 acetaminophen 500 mg tablet (Tylenol Extra Strength) 500 mg PO Q6H PRN Pain 05/08/21 guaifenesin 1,200 mg tablet, extended release 12 hr (Mucinex) 1,200 mg PO PRN PRN Cough 04/15/22 hydrochlorothiazide 12.5 mg capsule 12.5 mg PO DAILY BP 04/15/22 losartan 50 mg tablet 50 mg PO DAILY BP 04/15/22 apixaban 5 mg tablet (Eliquis) 2.5 mg PO 0700,1900 #30 tabs 08/21/22 oxycodone 5 mg tablet 5 - 10 mg PO Q4H PRN PRN Pain Score 4-10 7 days #60 tabs 08/21/22 Hospital Course Operations total knee replacement (right) Summary of Care Provided Minutes Spent on Discharge: 15 Hospital Course: Patient was admitted to the hospital postoperative for right total knee arthroplasty. Patient had failed conservative measures on an outpatient basis regarding right knee osteoarthritis and therefore after discussion elected to proceed with right total knee arthroplasty. Patient underwent routine right total knee arthroplasty on 08-19-2022. Patient had no intraoperative or postoperative complications. Patient was then admitted to the hospital for routine postop care. Patient's time in the hospital was unremarkable in terms of the knee. He did develop some dysuria and some urinary hesitancy requiring consultation from urology and resulted in some medication changes. Patient will be continued to be followed by urology regarding his urinary symptoms. Outside of the urinary symptoms patient really is not complaining of any problems with the knee. He states he has minimal pain in the knee at this time. Patient will continue with right total knee precautions and will continue with rehabilitation/physical therapy in the transitional care unit. Physical Exam Const alert, oriented x3 and no apparent distress General Appearance: cooperative and comfortable Orientation / Consciousness: awake Exam Limitations: no limitations Nutritional Appearance: obese Resp normal respiratory effort, normal air movement and no use of accessory muscles Effort and Inspection: able to speak in complete sentences; Negative for abnormal respiratory pattern or respiratory distress Extremity General Extremity: edema right lower extremity moderate Right Lower Extremity: knee joint inspection (Occlusive dressing still in place over the right knee. Very small dime sized area of dried blood on the distal one third aspect of the dressing. He does have some ecchymosis noted just distal to the joint into the lower extremity. No surrounding erythema. There is generalized swelling of the kne), palpation (Palpation reveals evident swelling around the knee at the same time compartments are soft. Patient actually does not complain of tenderness directly around the incision site where the occlusive dressing is. No obvious warmth. He does describe intact sensation to light touch throughout the lower e), ROM (Decreased flexion and extension typical at this point postop due to swelling and discomfort.), neurovascular exam (Intact motor function of the ankle/foot/toes. Intact sensation light touch lower extremity.), other (Negative Homans) and special tests Skin no rashes or lesions noted Wounds: wounds noted size Size: 7cm, No drainage, No malodorous and No surrounding erythema Neuro Gait (Neuro): assistive device used walker Psych Appearance: grossly normal Attitude: calm Thought Process: normal thought process Weight / BMI Weight Weight: 275 lb 9.245 oz Body Mass Index (BMI) 38.4 ABG / Lab / Microbiology Data Result Diagrams: 08/22/22 06:25 08/22/22 14:30 Laboratory: Laboratory Results - last 24 hr 08/22/22 14:30: Sodium 139, Potassium 3.4 L, Chloride 107, Carbon Dioxide 27.0, Anion Gap 5, BUN 13, Creatinine 1.03, Estim Creat Clear Calc 73.11, Est GFR (MDRD) Af Amer 92, Est GFR (MDRD) Non-Af 76, BUN/Creatinine Ratio 12.6, Glucose 117 H, Calcium 9.1, Total Bilirubin 1.30 H, AST 21, ALT 18, Alkaline Phosphatase 73, Total Protein 6.6, Albumin 3.2, Globulin 3.4, Albumin/Globulin Ratio 0.9 Microbiology: Microbiology 08/15/22 07:33 Swab (Method) Nasal Screen MRSA/MSSA - Final D/C Instructions Discharge Diet: No restrictions Call your doctor if you observe: Shortness of breath and Chest pain Change Dressing in: 4 days (72 hours / day 4) Cleanse incision/area with: Soap & Water Additional Dressing/Incision Instructions: Ice and elevate lower extremities 2 weeks while not ambulating. Ambulation is encouraged. Weight bearing as tolerated. Use assistive devise for stability. Encourage FULL knee extension and flexion 1 time EVERY time you get up and down and MULTIPLE times per day. No showering 72 hours after surgery. Begin showering postop day #3. Remove the dressing prior to shower and gently wash with warm water and antibacterial soap then pat dry and place abdominal pad (or plain gauze) and CJ hose over top. This is to be done daily. Do not submerge for 3 weeks. If not showering daily after the initial 72 hours then you must clean incision and change dressing daily. Do not allow animals near the incision area. Keep clean. Follow anti-coagulation recommendations as prescribed. Do not take any NSAIDs while on blood thinner. Do not take any additional narcotic pain medication other than what was prescribed on your surgery day without discussing with physician. Narcotic medication can be addictive. Do not drink alcohol while taking narcotics. Supplement narcotic prescription with acetaminophen 1000 mg 4 times a day. Start physical therapy. If you are not currently scheduled for physical therapy or you are unsure of appointment time please call office [facility] to arrange. Call Dr. Lobo with any concerns. Please Follow Up With: Bryant Lobo DO When: 2 weeks Meaningful Use Info Meaningful Use Diagnoses (Choose all that apply): None applicable Discharge Plan Admission Admit Date/Time: 08/19/22 07:56 Primary Reason for Your Visit: Right total knee arthroplasty Attending Provider: Bryant Lobo [facility] Providers: Lion Khan Instructions Additional Instructions / Restrictions: Ice and elevate lower extremities 2 weeks while not ambulating. Ambulation is encouraged. Weight bearing as tolerated. Use assistive devise for stability. Encourage FULL knee extension and flexion 1 time EVERY time you get up and down and MULTIPLE times per day. No showering 72 hours after surgery. Begin showering postop day #3. Remove the dressing prior to shower and gently wash with warm water and antibacterial soap then pat dry and place abdominal pad (or plain gauze) and CJ hose over top. This is to be done daily. Do not submerge for 3 weeks. If not showering daily after the initial 72 hours then you must clean incision and change dressing daily. Do not allow animals near the incision area. Keep clean. Follow anti-coagulation recommendations as prescribed. Do not take any NSAIDs while on blood thinner. Do not take any additional narcotic pain medication other than what was prescribed on your surgery day without discussing with physician. Narcotic medication can be addictive. Do not drink alcohol while taking narcotics. Supplement narcotic prescription with acetaminophen 1000 mg 4 times a day. Start physical therapy. If you are not currently scheduled for physical therapy or you are unsure of appointment time please call office [facility] to arrange. Call Dr. Lobo with any concerns. Discharge Orders/Prescriptions Prescriptions: New oxycodone 5 mg Tablet 5 - 10 mg PO Q4H PRN PRN (Reason: Pain Score 4-10) 7 Days Qty: 60 0RF Eliquis 5 mg Tablet 2.5 mg PO 0700,1900 Qty: 30 0RF Continued cholecalciferol (vitamin D3) 50,000 unit capsule 50,000 unit PO MO Qty: 4 Label Comments: TAKE 1 CAPSULE BY MOUTH ONCE A WEEK tamsulosin 0.4 mg capsule 0.4 mg PO QHS Qty: 30 metoprolol tartrate 25 mg tablet 25 mg PO DAILY cetirizine 10 mg tablet 10 mg PO PRN PRN (Reason: ALLERGIES) Label Comments: TAKE 1 TABLET BY MOUTH ONCE DAILY aspirin [Adult Low Dose Aspirin] 81 mg tablet,delayed release (DR/EC) 81 mg PO QODAY mecobalamin (vitamin B12) 1,000 mcg tablet,chewable 1,000 mcg PO DAILY acetaminophen [Tylenol Extra Strength] 500 mg tablet 500 mg PO Q6H PRN (Reason: Pain) losartan 50 mg tablet 50 mg PO DAILY Label Comments: TAKE 1 TABLET BY MOUTH ONCE DAILY hydrochlorothiazide 12.5 mg capsule 12.5 mg PO DAILY Label Comments: TAKE 1 CAPSULE BY MOUTH ONCE DAILY NEEDED FOR LEG SWELLING Mucinex 1,200 mg Tablet Extended Release 12hr 1,200 mg PO PRN PRN (Reason: Cough) Discontinued meloxicam 15 mg tablet 15 mg PO DAILY [facility] - Disposition Disposition (needs filled in before D/C Order can be placed): Inpatient Rehab Unit/Facility
--- NOTE | 2022-08-23 13:38 | NURSING ---
Bladder scanned for greater than 1000cc. Patient c/o voiding small amts and not emptying out. Will straight cath per order.
--- NOTE | 2022-08-23 16:18 | NURSING ---
Report called to Anaid in TCU patient will go shortly to tcu room 18.
[2022-08-23 16:20] VITALS: BP 128/59; PULSE 106; RESP 18; TEMP 36.9; O2SAT 97
== END 2022-08-23 16:47 | DRG 470 ==
LOC: ACINP 07:58 → MS3 16:25
PROVIDERS: Anesthesiology; Admitting Provider Orthopaedic Surgery; Referring Provider Orthopaedic Surgery; Visit Provider Orthopaedic Surgery
PROC: 0SRC0JZ Replacement of Right Knee Joint with Synthetic Substitute, Open Approach (ICD-10-PCS; CPT 27447; principal; 2022-08-19 10:00)
DX: M17.11 Unilateral primary osteoarthritis, right knee (principal); E66.9 Obesity, unspecified; I10 Essential (primary) hypertension; G89.18 Other acute postprocedural pain; R30.0 Dysuria; R39.11 Hesitancy of micturition; R35.0 Frequency of micturition; N40.0 Benign prostatic hyperplasia without lower urinary tract symptoms; Z20.822 Contact with and (suspected) exposure to COVID-19; Z86.16 Personal history of COVID-19; Z79.82 Long term (current) use of aspirin; Z79.01 Long term (current) use of anticoagulants; Z79.899 Other long term (current) drug therapy; Z79.1 Long term (current) use of non-steroidal anti-inflammatories (NSAID); Z68.38 Body mass index [BMI] 38.0-38.9, adult; R31.9 Hematuria, unspecified
CPT/HCPCS: 36415; 73560; 80048; 80053; 80076; 81001; 82962; 82985; 83036; 83735; 85025; 85027; 85610; 85730; 86850; 86900; 86901; 87077; 87081; 87086; 87811; 88305; 88311; 94668; 97110; 97116; 97162; 97166; 97530; 97535; C1776; J7030; J7120; A4216; J2405; J3475; J3490

== ENCOUNTER 2022-08-23 16:50 | Inpatient (IN) | payer MEDICARE, MEDICAID, SELFPAY ==
[2022-08-23 17:11] VITALS: BMI 39.2
[2022-08-23 17:46] VITALS: BP 143/65; PULSE 87; RESP 14; TEMP 35.9; O2SAT 97
[2022-08-23] MEDS: oxyCODONE 5 MG Tablet PO (20:19)
[2022-08-23] MEDS: APIXABAN 2.5 MG TABLET (WCH) PO (20:20)
[2022-08-23] MEDS: Tamsulosin HCl 0.4 MG Capsule PO (20:20)
--- NOTE | 2022-08-23 20:26 | NURSING ---
Patient A&Ox3, c/o bladder feeling full post-void, bladder scan at this time post-void with 1,029 mL result. Martinez placed at this time as ordered x1 attempt with sterile technique per facility protocol. Patient tolerated well. Clear yellow urine observed in tubing. No distress observed or reported. Patient states that feels better. PRN Oxy administered as ordered per pt. request for knee pain. Surgical dressings x2, right knee dressing dry and intact, dressing to distal right knee dry and intact, old drainage observed to dressings. Call light in reach.
--- NOTE | 2022-08-23 20:33 | HP.PCM_ITS ---
HPI - General General Date of Admission: 08/23/22 Date of Service: 08/25/22 Chief Complaint: Here for rehabilitation. HPI Narrative LUCIAN LORD, is a 66 Male who presents with followin08/19/2022 Admit to [facility]. 08/19/[address]obo performed CT guided robotic assisted left total knee arthroplasty. 08/20/2022 Left knee pain. Tylenol, Oxycodone for pain. Eliquvilla, SCD, CJ reyeze for DVT prophylaxis. Lives alone, 12 steps, not safe to go home. PT/OT for SNF. 08/21/2022 Left knee pain, urinary frequency. PT/OT, WBAT. Urinalysis negative. 08/22/2022 Dr. Khan recommended adding finasteride 5mg daily to Tamsulosin 0.8mg for urinary frequency secondary to BPH. Check bladderscan to evaluate for urinary retention. 08/23/2022 Admit to TCU with debility, here for rehabilitation, strengthening, prior to discharge home alone. [facility] Medical History (Updated 08/23/22 @ 20:[address] Jude Aguilar MD) Allergic rhinitis Ambulates with cane Arthritis Back pain BPH (benign prostatic hyperplasia) Class 2 obesity due to excess calories without serious comorbidity with body mass index (BMI) of 39.0 to 39.9 in adult COVID-19 Easy bruising Excessive bleeding History of edema History of pain when walking Hx of skin cancer, basal cell Hypertension Non-smoker Pneumonia due to 2019 novel coronavirus Primary osteoarthritis of right knee Prostate disease Seizures Wears glasses Home Medications cholecalciferol (vitamin D3) 1,250 mcg (50,000 unit) capsule 50,000 unit PO MO SUPPLEMENT #4 caps 01/10/19 [History Last Taken Unknown] tamsulosin 0.4 mg capsule 0.4 mg PO QHS PROSTATE #30 caps 01/10/19 [History Last Taken Unknown] metoprolol tartrate 25 mg tablet 25 mg PO DAILY BP 04/27/20 [History Last Taken 08/19/22] aspirin 81 mg tablet,delayed release (Adult Low Dose Aspirin) 81 mg PO QODAY SUPPLEMENT 07/11/20 [History Last Taken 04/22/22] cetirizine 10 mg tablet 10 mg PO PRN PRN ALLERGIES 07/11/20 [History Last Taken Unknown] mecobalamin (vitamin B12) 1,000 mcg chewable tablet 1,000 mcg PO DAILY SUPPLEMENT 03/11/21 [History Last Taken Unknown] acetaminophen 500 mg tablet (Tylenol Extra Strength) 500 mg PO Q6H PRN Pain 05/08/21 [History Last Taken Unknown] guaifenesin 1,200 mg tablet, extended release 12 hr (Mucinex) 1,200 mg PO PRN PRN Cough 04/15/22 [History Last Taken Unknown] hydrochlorothiazide 12.5 mg capsule 12.5 mg PO DAILY BP 04/15/22 [History Last Taken Unknown] losartan 50 mg tablet 50 mg PO DAILY BP 04/15/22 [History Last Taken 04/29/22] oxycodone 5 mg tablet 5 - 10 mg PO Q4H PRN PRN Pain Score 4-10 7 days #60 tabs 08/21/22 [Rx Last Taken Unknown] apixaban 5 mg tablet (Eliquis) 2.5 mg PO 0700,1900 blood thinner 08/23/22 [History Last Taken Unknown] Allergy/AdvReac Type Severity Reaction Status Date / Time streptomycin Allergy Other Verified 08/19/22 08:29 Family History Mother Cancer Father Cancer Surgical History (Updated 08/23/22 @ 20:[address] Jude Aguilar MD) History of total left knee replacement S/P appendectomy Status post surgical removal of malignant neoplasm of skin Social History (Updated 08/23/22 @ 20:[address] Jude Aguilar MD) household members: none Smoking Status: Never smoker alcohol intake: never substance use type: does not use ROS Constitutional Constitutional: Denies chills, fever(s) or weight gain ENT HEENT: Denies headache(s), nasal congestion or nasal discharge Cardiovascular Cardiovascular: Denies chest pain or palpitations Respiratory/Chest Respiratory/Chest: Denies cough, excessive phlegm production or shortness of breath with exertion Gastrointestinal Gastrointestinal: Denies abdominal pain, nausea or vomiting Genitourinary Genitourinary: Denies dysuria Musculoskeletal Musculoskeletal: Denies joint pain or joint swelling Integumentary Integumentary: Denies rash or wounds Neurologic Neurologic: Denies focal weakness, numbness or tingling Psychiatric Psychiatric: Denies anxiety, auditory hallucinations, depression, homicidal ideation or suicidal ideation Vital Signs Vital Signs Vital Signs: 08/23/22 17:46 08/23/22 18:30 Temperature 96.7 F L Temperature Source Temporal Pulse Rate 87 Pulse Strength Normal (2+) Respiratory Rate 14 Blood Pressure 143/65 H Blood Pressure Mean 91 Blood Pressure Source Monitor Blood Pressure Position Sitting Blood Pressure Location Right Arm Pulse Ox 97 Oxygen Delivery Method Room Air Weight Weight: 127.5 kg Body Mass Index (BMI) 39.2 Physical Exam Const alert General Appearance: cooperative HEENT normocephalic Eyes PERRL and EOMs intact bilaterally Neck supple, no JVD and no carotid bruits Resp normal respiratory effort, normal air movement and clear to auscultation bilaterally Cardio regular rate and regular rhythm GI normal to inspection, nondistended, normoactive bowel sounds, non-tender and non-distended Extremity normal capillary refill General Extremity: Negative for edema Skin no rashes or lesions noted General Skin Exam: no breakdown Psych affect normal Appearance: appropriate Results Lab / Micro Data Result Diagrams: 08/24/22 05:52 08/25/22 05:35 Assessment & Plan Assessment/Plan (1) Debility: (2) Status post total left knee replacement: (3) Urinary hesitancy: (4) Vitamin D deficiency: (5) BPH (benign prostatic hyperplasia): (6) Hypertension: (7) Allergic rhinitis: (8) Vitamin B12 deficiency: (9) Osteoarthritis: PLAN: Plan 66 year old male with below past medical history hospitalized for left total knee replacement with Dr. Lobo, complicated by urinary hesitancy, admitted to TCU with debility, here for rehabilitation, strengthening, prior to discharge home alone. * Debility - PT/OT. * Pain - Tylenol 1000mg q6h prn pain (1-3), Oxycodone 5-10mg q4h prn pain (4- 10). * Bowel - Miralax 17gm daily, senna/colace 2 tablets bid, Dulcolax 10mg pr x 1 prn, MOM 30ml po x 1 prn. * Adult immunization - Administer pneumonia vaccine, covid19 vaccine, flu vaccine as appropriate. * DVT prophylaxis - Eliquis 2.5mg bid thru 08/31/2022. * CV prophylaxis - Aspirin 81mg daily starting 09/01/2022. * Vitamin B12 deficiency - B12 1000mcg daily. * Vitamin D deficiency - Vitamin D 1.25mg per week. * Congestion - Mucinex 1200mg po daily prn. * Hypertension - Metoprolol 25mg daily, Losartan 50mg daily, HCTZ 12.5mg daily. * Allergic rhinitis - Loratadine 10mg daily prn. * BPH - Finasteride 5mg daily, Tamsulosin 0.8mg qhs.
[2022-08-23] MEDS: Tamsulosin HCl 0.4 MG Capsule 0.8 MG PO (22:06)
[2022-08-23 23:50] VITALS: PULSE 110; RESP 18; O2SAT 98
--- NOTE | 2022-08-24 05:13 | NURSING ---
Patient refuses seizure pads to bed despite education on seizure precautions and encouragement to follow as ordered. A&Ox3.
[2022-08-24] MEDS: Polyethylene Glycol 3350 17 GM PACKET PO (05:23)
[2022-08-24 05:24] VITALS: BP 127/65; PULSE 105
[2022-08-24] MEDS: Cyanocobalamin 500 MCG Tablet 1000 MCG PO (05:24)
[2022-08-24] MEDS: Senna/Docusate Sodium 1 Tablet 2 TABLET PO (05:24)
[2022-08-24] MEDS: Finasteride 5 MG Tablet PO (05:24)
[2022-08-24] MEDS: Metoprolol Tartrate 25 MG Tablet PO (05:24)
[2022-08-24] MEDS: hydroCHLOROthiazide 12.5mg 12.5 MG PO (05:24)
[2022-08-24] MEDS: 0.9% Saline Lock 10 ML Syringe IV ×2 (05:26→21:20)
[2022-08-24 06:07] LABS: Absolute Lymphocyte Count 0.82 X10^3/uL (0.83-4.51); Absolute Neutrophil Count 5.9 X10^3/uL (2.0-7.7); Basophil# 0.03 X10^3/uL; Basophil% 0.4 % (0-1); Eosinophil# 0.19 X10^3/uL; Eosinophils% 2.5 % (0-5); Hematocrit 32.9 % (40-54); Hemoglobin 10.4 g/dL (13.0-16.5); Lymphocyte # 0.82 X10^3/ul (0.83-4.51); Lymphocyte % 10.7 % (19-41); Mean Corp Hgb Conc 31.6 g/dL (32-36); Mean Corpuscular Hgb 26.7 pg (27.0-32.0); Mean Corpuscular Volume 84.4 fL (80-94); Mean Platelet Vol. 9.4 fl (6.2-12.0); Monocyte% 9.1 % (0-10); NRBC Flagged by Analyzer 0 % (0-5); Neutrophil # 5.93 X10^3/uL (2.7-7.7); Platelet Count 215 K/mm3 (150-450); RBC Distribution Width CV 14.8 % (11.6-14.6); RBC Distribution Width SD 45.2 fl (35.1-43.9); White Blood Count 7.7 K/mm3 (4.4-11.0)
[2022-08-24 06:37] LABS: Anion Gap 7 (5-15); BUN 15 mg/dL (7-18); BUN/Creat Ratio 15.8 RATIO (10-20); Calcium,Total 8.5 mg/dL (8.5-10.1); Chloride 106 mmol/L (98-107); Creatinine, Serum 0.95 mg/dL (0.70-1.30); EST Glomerular Filtration Rate 84 mL/min (>60); Est Glom Filt Rate - Afr Amer 101 mL/min (>60); Estimated Creatinine Clearance 79.26 ml/min; Glucose 134 mg/dL (74-106); Potassium 3.1 mmol/L (3.5-5.1); Sodium Level 139 mmol/L (136-145)
[2022-08-24] MEDS: Tuberculin,Purif.prot.deriv. 50 TU/ML Vial 0.1 ML ID (08:53)
[2022-08-24] MEDS: APIXABAN 2.5 MG TABLET (WCH) PO ×2 (08:53→20:50)
[2022-08-24] MEDS: Losartan Potassium 50 MG Tablet PO (08:53)
[2022-08-24] MEDS: Potassium Chloride Oral Tablet 20 MEQ 40 MEQ PO (09:20)
[2022-08-24 16:00] VITALS: BP 126/70; PULSE 87; RESP 16; TEMP 36.4; O2SAT 96
[2022-08-24] MEDS: oxyCODONE 5 MG Tablet PO (17:22)
[2022-08-24] MEDS: Menthol/Lanolin/Calamine/Znox 113 GM Tube 1 APPLIC TOPICAL ×2 (17:30→20:51)
[2022-08-24 20:45] VITALS: PULSE 90; RESP 16; O2SAT 99
[2022-08-24] MEDS: Ammonium Lactate 225 gm Bottle 1 APPLIC TOPICAL (20:49)
[2022-08-24] MEDS: Tamsulosin HCl 0.4 MG Capsule 0.8 MG PO (20:50)
[2022-08-25 06:27] LABS: Anion Gap 5 (5-15); BUN 14 mg/dL (7-18); Calcium,Total 8.7 mg/dL (8.5-10.1); Chloride 106 mmol/L (98-107); Creatinine, Serum 0.87 mg/dL (0.70-1.30); EST Glomerular Filtration Rate 92 mL/min (>60); Est Glom Filt Rate - Afr Amer 111 mL/min (>60); Estimated Creatinine Clearance 86.55 ml/min; Glucose 110 mg/dL (74-106); Potassium 3.5 mmol/L (3.5-5.1); Sodium Level 139 mmol/L (136-145)
[2022-08-25] MEDS: Cyanocobalamin 500 MCG Tablet 1000 MCG PO (06:40)
[2022-08-25] MEDS: hydroCHLOROthiazide 12.5mg 12.5 MG PO (06:40)
[2022-08-25] MEDS: Finasteride 5 MG Tablet PO (06:40)
[2022-08-25] MEDS: Ergocalciferol 1.25 MG (50, 000 UNIT) Capsule PO (06:40)
[2022-08-25] MEDS: oxyCODONE 5 MG Tablet PO ×3 (06:40→17:22)
[2022-08-25 06:41] VITALS: BP 141/65; PULSE 95
[2022-08-25] MEDS: Metoprolol Tartrate 25 MG Tablet PO (06:41)
--- NOTE | 2022-08-25 07:04 | NURSING ---
FULL SERVICE SUPERVISOR reports observed patient scratch to back during AM care, patient immediately assessed, A&Ox3. Patient reports scratching a mole on back. Scant red drainage to site, band-aid applied per patient request. Denies pain. No distress observed or reported. Call light in reach.
[2022-08-25] MEDS: Potassium Chloride Oral Tablet 20 MEQ PO (08:38)
[2022-08-25] MEDS: APIXABAN 2.5 MG TABLET (WCH) PO ×2 (08:38→19:55)
[2022-08-25] MEDS: Losartan Potassium 50 MG Tablet PO (08:38)
--- NOTE | 2022-08-25 11:20 | NURSING ---
Dr. Khan and Dr. Booth office contacted for consult. Dr. Dickerson to come in for podietry consult.
--- NOTE | 2022-08-25 11:24 | CASEMGMT ---
Social Work Met with patient to complete initial assessment. Introduced self and role. Verified contacts. Discussed code status and MOLST form. Pt confirmed full code. MOLST placed in Dr folder. Pt wishes to complete advanced directives. SW to complete prior to DC as time allows. Educated to [facility] insurance with [employer] 08/25 and continued stay is not guaranteed with each review. Pt has new grullon and has 12 steps to enter his home. Installing a ramp is not a possibility Pt does have Medicaid secondary, but only has health insurance. Pt did state he does not have a bed at home; he sleeps in his recliner, and would like a hospital bed at DC. SW to coordinate DC needs. SW explored [facility] questions. Pt reports working to assist with paying the bills since his social security income does not cover the bills. Pt reports to concerns with finances at the time, but if he cannot return to work, he may become concerned. Pt denies any other issues. SW noted to have social media marketer with [facility] at time of DC to follow. SW to continue to follow to assist with DC planning. Syl Rendon, TUFTING MACHINE OPERATOR FICTION WRITER
--- NOTE | 2022-08-25 13:32 | NURSING ---
Jig Worker Note; Activities Asset: Emmy Duval is independent in his choice of daily activities. He watches tv, reads and visits w/family and friends. He did state he welcomes the forestry aid and therapy dog. ( his son is a rn invasive) Mukund is not a fan of word puzzles however enjoys reading the Daily Bread so I did get him things to read of that nature.
--- NOTE | 2022-08-25 14:00 | CHAPLAIN ---
Type of Pastoral Visit _x__ Initial Visit ___ Follow-up Visit ___ On-call Visit ___ General Patient Visit ___ Spiritual Assessment ___ Family Conference ___ Bereavement ___ Rapid Response ___ Code Blue ___ Other (describe below) Pastoral Care Referral From _x__ Patient ___ Family ___ Nurse ___ Physician ___ Filtration Plant Mechanic ___ Product Design Engineer ___ Other (describe below) Sacrament/Intervention _x__ Active listening ___ Anointing ___ Adventism ___ Bereavement ___ Communion _x__ Maggi exploration ___ ___ Life review _x__ Prayer ___ Reconciliation ___ Sacrament of Sick _x__ Supportive presence ___ Wedding ___ Other (describe below) Pastoral Comments this patient was met last week in [place]; pt is welcoming and expects more visitors today; pt is adjusting pretty well; pt has spiritual support and enjoys talking about maggi; pt is but does have family support as well
[2022-08-25 14:18] VITALS: BP 119/62; PULSE 82; RESP 16; TEMP 35.9; O2SAT 94
[2022-08-25] MEDS: Menthol/Lanolin/Calamine/Znox 113 GM Tube 1 APPLIC TOPICAL ×2 (15:03→19:56)
--- NOTE | 2022-08-25 15:22 | NURSING ---
Offered covid vaccine, education provided on vaccine. Patient refuses at this time.
--- NOTE | 2022-08-25 16:30 | CON.PCM.UR_ITS ---
Assessment & Plan Assessment/Plan (1) BPH (benign prostatic hyperplasia): PLAN: Patient has BPH with retention of urine continue with medical therapy with tamsulosin and Proscar I think within 7 days we can take out the catheter and do another voiding trial hopefully he will be successful check postvoid residuals if this fails then he may need need to see me as an outpatient for another voiding trial as an outpatient and last of a we talked with the patient as surgery is a last option if it does not restore normally with medication and time. HPI Consult Data Date of Consult: 08/25/22 HPI Narrative Reason for Consultation: Urinary retention after knee replacement surgery HPI Narrative: LUCIAN LORD, is a 66 M who presents for rehab and after knee replacement. He developed retention of urine first was having frequency of urination and then eventually had retention of urine had a Martinez catheter placed. He is on Flomax and also Proscar. He is ambulatory and improving [facility] Medical History Allergic rhinitis Ambulates with cane Arthritis Back pain BPH (benign prostatic hyperplasia) Class 2 obesity due to excess calories without serious comorbidity with body mass index (BMI) of 39.0 to 39.9 in adult COVID-19 Easy bruising Excessive bleeding History of edema History of pain when walking Hx of skin cancer, basal cell Hypertension Non-smoker Pneumonia due to 2019 novel coronavirus Primary osteoarthritis of right knee Prostate disease Seizures Wears glasses Home Medications cholecalciferol (vitamin D3) 1,250 mcg (50,000 unit) capsule 50,000 unit PO MO SUPPLEMENT #4 caps 01/10/19 [History Last Taken Unknown] tamsulosin 0.4 mg capsule 0.4 mg PO QHS PROSTATE #30 caps 01/10/19 [History Last Taken Unknown] metoprolol tartrate 25 mg tablet 25 mg PO DAILY BP 04/27/20 [History Last Taken 08/19/22] aspirin 81 mg tablet,delayed release (Adult Low Dose Aspirin) 81 mg PO QODAY SUPPLEMENT 07/11/20 [History Last Taken 04/22/22] cetirizine 10 mg tablet 10 mg PO PRN PRN ALLERGIES 07/11/20 [History Last Taken Unknown] mecobalamin (vitamin B12) 1,000 mcg chewable tablet 1,000 mcg PO DAILY SUPPLEMENT 03/11/21 [History Last Taken Unknown] acetaminophen 500 mg tablet (Tylenol Extra Strength) 500 mg PO Q6H PRN Pain 05/08/21 [History Last Taken Unknown] guaifenesin 1,200 mg tablet, extended release 12 hr (Mucinex) 1,200 mg PO PRN PRN Cough 04/15/22 [History Last Taken Unknown] hydrochlorothiazide 12.5 mg capsule 12.5 mg PO DAILY BP 04/15/22 [History Last Taken Unknown] losartan 50 mg tablet 50 mg PO DAILY BP 04/15/22 [History Last Taken 04/29/22] oxycodone 5 mg tablet 5 - 10 mg PO Q4H PRN PRN Pain Score 4-10 7 days #60 tabs 08/21/22 [Rx Last Taken Unknown] apixaban 5 mg tablet (Eliquis) 2.5 mg PO 0700,1900 blood thinner 08/23/22 [History Last Taken Unknown] Allergy/AdvReac Type Severity Reaction Status Date / Time streptomycin Allergy Other Verified 08/19/22 08:29 Family History Mother Cancer Father Cancer Surgical History History of total left knee replacement S/P appendectomy Status post surgical removal of malignant neoplasm of skin Social History household members: none Smoking Status: Never smoker alcohol intake: never substance use type: does not use ROS Constitutional Constitutional: Denies chills, fever(s) or malaise Eyes Eyes: Denies blurry vision or change in vision ENT HEENT: Reports none Cardiovascular Cardiovascular: Denies chest pain or palpitations Respiratory/Chest Respiratory/Chest: Denies cough or shortness of breath with exertion Gastrointestinal Gastrointestinal: Denies abdominal pain, constipation or diarrhea Musculoskeletal Musculoskeletal: Denies back pain, joint stiffness or joint swelling Integumentary Integumentary: Denies dry skin, jaundice, lesions or rash Neurologic Neurologic: Denies confusion, syncope or weakness Psychiatric Psychiatric: Reports none; Denies anxiety or depression Endocrine Endocrinology: Denies excessive sweating, fatigue or flushing Hematologic/Lymphatic Hematologic/Lymphatic: Denies anemia, easy bleeding or easy bruising Physical Exam Const alert and oriented x3 General Appearance: cooperative HEENT normocephalic and head/scalp atraumatic Eyes PERRL and EOMs intact bilaterally Neck supple, no JVD and no carotid bruits Resp normal respiratory effort, normal air movement and clear to auscultation bilaterally Cardio regular rate and no murmurs GI normal to inspection, nondistended, normoactive bowel sounds and soft to palpation Extremity normal capillary refill General Extremity: no tenderness to palpation of joints or extremities; Negative for edema Skin no rashes or lesions noted and no wounds General Skin Exam: no breakdown Neuro CN's II-XII intact bilaterally Psych affect normal Appearance: appropriate Lab / Micro Data Result Diagrams: 08/24/22 05:52 08/25/22 05:35 Labs: Laboratory Results - last 24 hr 08/25/22 05:35: Sodium 139, Potassium 3.5, Chloride 106, Carbon Dioxide 28.0, Anion Gap 5, BUN 14, Creatinine 0.87, Estim Creat Clear Calc 86.55, Est GFR (MDRD) Af Amer 111, Est GFR (MDRD) Non-Af 92, BUN/Creatinine Ratio 16.0, Glucose 110 H, Calcium 8.7 Micro: Microbiology 08/25/22 06:14 Nasal Secretion SARS-CoV-2 Antigen (Rapid) - Final
[2022-08-25] MEDS: 0.9% Saline Lock 10 ML Syringe IV (17:18)
[2022-08-25] MEDS: Tamsulosin HCl 0.4 MG Capsule 0.8 MG PO (19:55)
[2022-08-25] MEDS: Ammonium Lactate 225 gm Bottle 1 APPLIC TOPICAL (19:56)
[2022-08-26 04:45] VITALS: BP 131/57; PULSE 96; RESP 18; O2SAT 95
[2022-08-26 04:49] VITALS: BP 131/57; PULSE 96
[2022-08-26] MEDS: hydroCHLOROthiazide 12.5mg 12.5 MG PO (04:49)
[2022-08-26] MEDS: Metoprolol Tartrate 25 MG Tablet PO (04:49)
[2022-08-26] MEDS: Finasteride 5 MG Tablet PO (04:49)
[2022-08-26] MEDS: Cyanocobalamin 500 MCG Tablet 1000 MCG PO (04:50)
[2022-08-26] MEDS: APIXABAN 2.5 MG TABLET (WCH) PO ×2 (04:50→21:12)
[2022-08-26 05:52] LABS: Hematocrit 32.9 % (40-54); Hemoglobin 10.3 g/dL (13.0-16.5)
[2022-08-26 06:43] LABS: Anion Gap 7 (5-15); BUN 16 mg/dL (7-18); BUN/Creat Ratio 16.6 RATIO (10-20); Calcium,Total 8.7 mg/dL (8.5-10.1); Chloride 104 mmol/L (98-107); Creatinine, Serum 0.96 mg/dL (0.70-1.30); EST Glomerular Filtration Rate 82 mL/min (>60); Est Glom Filt Rate - Afr Amer 100 mL/min (>60); Estimated Creatinine Clearance 78.44 ml/min; Glucose 120 mg/dL (74-106); Potassium 3.8 mmol/L (3.5-5.1); Sodium Level 139 mmol/L (136-145)
[2022-08-26] MEDS: Losartan Potassium 50 MG Tablet PO (09:04)
[2022-08-26] MEDS: Potassium Chloride Oral Tablet 20 MEQ PO (09:04)
[2022-08-26] MEDS: oxyCODONE 5 MG Tablet PO ×3 (09:07→21:19)
[2022-08-26 09:09] VITALS: BP 117/65; PULSE 89
[2022-08-26 10:41] VITALS: BMI 38.5
--- NOTE | 2022-08-26 12:14 | CON.PCM_ITS ---
Assessment & Plan Assessment/Plan (1) Pain in right toe(s): PLAN: Patient examined evaluated. Due to inability to reach his feet and dif fuse thickening and painful elongated toenails nail debridement was performed today. Toenails x10 were debrided in length and thickness without incident using sterile nail nippers. Patient tolerated procedure well. No incident. Patient will follow up with us outpatient for as needed nail care. (2) Pain in left toe(s): (3) Tinea unguium: HPI Consult Data Date of Consult: 08/26/22 HPI Narrative HPI Narrative: LUCIAN LORD, is a 66 M who presents Patient is recovering from right total knee replacement and postoperative urinary retention. Patient is elongated thickened painful toenails 1 through 5 bilaterally. [facility] Medical History Allergic rhinitis Ambulates with cane Arthritis Back pain BPH (benign prostatic hyperplasia) Class 2 obesity due to excess calories without serious comorbidity with body mass index (BMI) of 39.0 to 39.9 in adult COVID-19 Easy bruising Excessive bleeding History of edema History of pain when walking Hx of skin cancer, basal cell Hypertension Non-smoker Pneumonia due to 2019 novel coronavirus Primary osteoarthritis of right knee Prostate disease Seizures Wears glasses Home Medications cholecalciferol (vitamin D3) 1,250 mcg (50,000 unit) capsule 50,000 unit PO MO SUPPLEMENT #4 caps 01/10/19 [History Last Taken Unknown] tamsulosin 0.4 mg capsule 0.4 mg PO QHS PROSTATE #30 caps 01/10/19 [History Last Taken Unknown] metoprolol tartrate 25 mg tablet 25 mg PO DAILY BP 04/27/20 [History Last Taken 08/19/22] aspirin 81 mg tablet,delayed release (Adult Low Dose Aspirin) 81 mg PO QODAY SUPPLEMENT 07/11/20 [History Last Taken 04/22/22] cetirizine 10 mg tablet 10 mg PO PRN PRN ALLERGIES 07/11/20 [History Last Taken Unknown] mecobalamin (vitamin B12) 1,000 mcg chewable tablet 1,000 mcg PO DAILY SUPPLEMENT 03/11/21 [History Last Taken Unknown] acetaminophen 500 mg tablet (Tylenol Extra Strength) 500 mg PO Q6H PRN Pain 05/08/21 [History Last Taken Unknown] guaifenesin 1,200 mg tablet, extended release 12 hr (Mucinex) 1,200 mg PO PRN PRN Cough 04/15/22 [History Last Taken Unknown] hydrochlorothiazide 12.5 mg capsule 12.5 mg PO DAILY BP 04/15/22 [History Last Taken Unknown] losartan 50 mg tablet 50 mg PO DAILY BP 04/15/22 [History Last Taken 04/29/22] oxycodone 5 mg tablet 5 - 10 mg PO Q4H PRN PRN Pain Score 4-10 7 days #60 tabs 08/21/22 [Rx Last Taken Unknown] apixaban 5 mg tablet (Eliquis) 2.5 mg PO 0700,1900 blood thinner 08/23/22 [ History Last Taken Unknown] Allergy/AdvReac Type Severity Reaction Status Date / Time streptomycin Allergy Other Verified 08/19/22 08:29 Family History Mother Cancer Father Cancer Surgical History History of total left knee replacement S/P appendectomy Status post surgical removal of malignant neoplasm of skin Social History household members: none Smoking Status: Never smoker alcohol intake: never substance use type: does not use Physical Exam Narrative Neurovascular status intact to bilateral feet with palpable DP PT pulses capillary fill time brisk digital hair growth noted. Some bruising to right foot likely related to total knee replacement on that side. Light touch protective sensation intact bilateral feet. Toenails 1-3 4 and 5 bilaterally are elongated thickened and painful. No acute musculoskeletal issues. Const alert and oriented x3 Lab / Micro Data Result Diagrams: 08/26/22 05:32 08/26/22 05:32 Labs: Laboratory Results - last 24 hr 08/26/22 05:32: Hgb 10.3 L, Hct 32.9 L 08/26/22 05:32: Sodium 139, Potassium 3.8, Chloride 104, Carbon Dioxide 28.0, Anion Gap 7, BUN 16, Creatinine 0.96, Estim Creat Clear Calc 78.44, Est GFR (MDRD) Af Amer 100, Est GFR (MDRD) Non-Af 82, BUN/Creatinine Ratio 16.6, Glucose 120 H, Calcium 8.7
[2022-08-26 13:59] VITALS: BP 113/64; PULSE 81; RESP 16; TEMP 36.2; O2SAT 98
--- NOTE | 2022-08-26 14:26 | CASEMGMT ---
Social Work Completed advanced directives for pt. Pt named son, Sony Marcos, as HCPOA. Original and copy provided to pt. Copies placed on chart. Syl Rendon, PRINT SHOP STENOGRAPHER TOWER OPERATOR
--- NOTE | 2022-08-26 14:27 | PHA.CONS_ITS ---
TCU RX Drug Regimen Review Subjective: TCU Admission. 66 YOM hospitalized for left total knee replacement with Dr. Lobo, complicated by urinary hesitancy. Admitted to TCU with debility for strengthening and rehabilitation. Objective: Allergies streptomycin Allergy (Verified 08/19/22 08:29) Other NUMBNESS Current Medications Generic Name Dose Route Start Last Admin Trade Name Freq PRN Reason Stop Dose Admin Acetaminophen 1,000 mg 08/23/22 20:48 Acetaminophen 500 Mg Tablet PO Q6H PRN PRN Pain Score 1-3 Apixaban 2.5 mg 08/23/22 19:00 08/26/22 04:50 Apixaban 2.5 Mg Tablet ([facility]) PO 08/31/22 23:59 2.5 mg 0700,1900 [facility] Administration Aspirin 81 mg 09/01/22 08:00 Aspirin E.C. 81 Mg Tablet PO QODAY@0800 [facility] Bisacodyl 10 mg 08/23/22 20:46 Bisacodyl 10 Mg Suppository RC X1 PRN Constipation Calamine/Phenol 1 applic 08/25/22 10:00 08/25/22 19:56 Menthol/Lanolin/Calamine/Znox 113 Gm Tube TOPICAL 1 applic 1000,2200 MANSI Administration Protocol Cyanocobalamin 1,000 mcg 08/24/22 06:00 08/26/22 04:50 Cyanocobalamin 500 Mcg Tablet PO 1,000 mcg DAILY MANSI Administration Ergocalciferol 1.25 mg 08/25/22 06:00 08/25/22 06:40 Ergocalciferol 1.25 Mg (50, 000 Unit) Capsule PO 1.25 mg Mo@0600 MANSI Administration Finasteride 5 mg 08/24/22 06:00 08/26/22 04:49 Finasteride 5 Mg Tablet PO 5 mg DAILY MANSI Administration Guaifenesin 1,200 mg 08/23/22 17:46 Guaifenesin 1,200 Mg Tablet PO PRN PRN Cough Hydrochlorothiazide 12.5 mg 08/24/22 06:00 08/26/22 04:49 Hydrochlorothiazide 12.5mg PO 12.5 mg DAILY MANSI Administration Hydrocortisone 1 applic 08/25/22 17:35 Hydrocortisone 2.5% Crm TOPICAL TID PRN PRN RASH/TOPICAL IRRITATION Protocol Lactic Acid 1 applic 08/24/22 22:00 08/25/22 19:56 Ammonium Lactate 225 Gm Bottle TOPICAL 1 applic QHS [facility] Administration Protocol Loratadine 10 mg 08/23/22 17:46 Loratadine 10 Mg Tablet PO DAILY PRN PRN ALLERGIES Losartan Potassium 50 mg 08/24/22 08:00 08/26/22 09:04 Losartan Potassium 50 Mg Tablet PO 50 mg DAILY@0800 MANSI Administration Magnesium Hydroxide 30 ml 08/23/22 20:46 Magnesium Hydroxide 30 Ml Udc PO X1 PRN CONSTIPATION Metoprolol Tartrate 25 mg 08/24/22 06:00 08/26/22 04:49 Metoprolol Tartrate 25 Mg Tablet PO 25 mg DAILY MANSI Administration Oxycodone HCl 5 - 10 mg 08/23/22 17:46 08/26/22 09:07 Oxycodone 5 Mg Tablet PO 5 mg Q4H PRN PRN Administration Pain Score 4-10 Polyethylene Glycol 17 gm 08/24/22 06:00 08/26/22 04:48 Polyethylene Glycol 3350 17 Gm Packet PO Not Given DAILY [facility] Potassium Chloride 20 meq 08/25/22 08:00 08/26/22 09:04 Potassium Chloride Oral Tablet 20 Meq PO 20 meq BREAKFAST [facility] Administration Senna/Docusate Sodium 2 tablet 08/23/22 21:00 08/26/22 04:48 Senna/Docusate Sodium 1 Tablet PO Not Given BID [facility] Sodium Chloride 10 - 40 ml 08/23/22 17:54 08/25/22 17:18 0.9% Saline Lock 10 Ml Syringe IV 10 ml UD PRN Administration SALINE FLUSH Tamsulosin HCl 0.8 mg 08/23/22 22:00 08/25/22 19:55 Tamsulosin Hcl 0.4 Mg Capsule PO 0.8 mg QHS MANSI Administration Tuberculin PPD 0.1 ml 08/31/22 10:00 Tuberculin,Purif.Prot.Deriv. 50 Tu/Ml Vial ID 08/31/22 10:01 X1 ONE Problem List (Last Reviewed 08/26/22 @ 12:[address] Jaguar Dickerson, DPM) Tinea unguium (Acute) Pain in left toe(s) (Acute) Pain in right toe(s) (Acute) Osteoarthritis (Acute) Vitamin B12 deficiency (Acute) Allergic rhinitis (Acute) Hypertension (Chronic) BPH (benign prostatic hyperplasia) (Acute) Vitamin D deficiency (Acute) Status post total left knee replacement (Acute) Debility (Acute) Urinary hesitancy (Acute) Vital Signs Temp Pulse Resp BP Pulse Ox O2 Del Method 97.2 F L 81 16 113/64 98 Room Air 08/26/22 13:59 08/26/22 13:59 08/26/22 13:59 08/26/22 13:59 08/26/22 13:59 08/26/22 13:59 Oxygen Delivery Method Room Air Weight: 127.5 kg Body Mass Index (BMI) 39.2 Sodium 139 mmol/L (136-145) 08/26/22 05:32 Potassium 3.8 mmol/L (3.5-5.1) 08/26/22 05:32 Chloride 104 mmol/L (98-107) 08/26/22 05:32 Carbon Dioxide 28.0 mmol/L (21.0-32.0) 08/26/22 05:32 Anion Gap 7 (5-15) 08/26/22 05:32 BUN 16 mg/dL (7-18) 08/26/22 05:32 Creatinine 0.96 mg/dL (0.70-1.30) 08/26/22 05:32 Est GFR (MDRD) Af Amer 100 mL/min (>60) 08/26/22 05:32 Est GFR (MDRD) Non-Af 82 mL/min (>60) 08/26/22 05:32 BUN/Creatinine Ratio 16.6 RATIO (10-20) 08/26/22 05:32 Glucose 120 mg/dL (74-106) H 08/26/22 05:32 Assessment/Plan: 1. Pain: acetaminophen 1000mg PO Q6H PRN pain 1-3 and oxycodone 5-10mg PO Q4H PRN pain 4-10. Resident has not had any doses of acetaminophen but has had 6 doses of oxycodone for pain 4/7-8 in the knee. Please continue to monitor for increased pain, PRN usage, constipation and respiratory depression. 2. Bowel: Miralax 17gm PO daily, senna/docusate 2T PO BID, bisacodyl 10mg RC x1 PRN constipation and MOM 30mL PO x1 PRN constipation. Resident has not used any PRN doses. Last documented bowel movement was on 08/23. Resident has refused 2/3 doses of Miralax and 5/6 doses of senna/docusate. Please consider changing from scheduled to PRN. Thanks. Please continue to monitor for constipation and PRN usage. 3. DVT prophylaxis: apixaban 2.5mg PO BID thru 08/31/22. Please continue to monitor for S/S of bleeding/DVT and hemoglobin (last 10.3g/dL). 4. CV prophylaxis: aspirin 81mg PO every other day starting 09/01/22 (after completion of apixaban). Please monitor for S/S of bleeding once aspirin is started. 5. Hypertension: metoprolol tartrate 25mg PO daily, losartan 50mg PO daily and hydrochlorothiazide 12.5mg PO daily. Please continue to monitor BP (last 113/64), HR (last 81), renal function, potassium (last 3.8mmol/L) and sodium (last 139mmol/L). 6. BPH: finasteride 5mg PO daily and tamsulosin 0.8mg PO QHS. Urology consulted. Please continue to monitor for S/S of BPH, BP and rash. 7. Allergic rhinitis: loratadine 10mg PO daily PRN allergies. Resident has not had any doses. Please continue to monitor for S/S of allergies and PRN usage. 8. Congestion: guaifenesin 1200mg PO daily PRN cough. Resident has not had any doses. Please continue to monitor for cough and PRN usage. 9. Vitamin B12 and D deficiencies: cyanocobalamin 1000mcg PO daily and ergocalciferol 1.25mg PO Mondays. Please consider ordering vitamin B12 and D levels as the last levels are from 06/08/21 and 01/07/21 respectively. Thanks. 10. Rash: hydrocortisone 2.5% cream TID PRN rash/topical irritation. Resident has not used any doses yet. Please continue to monitor for rash and PRN usage. Assessment/Plan for indications treated with psychotropic medications: None Medical chart and medication regimen reviewed. The following medication irregularities or issues were identified: *1. Miralax 17gm PO daily and senna/docusate 2T PO BID. Resident has refused 2/3 doses of Miralax and 5/6 doses of senna/docusate. Please consider changing from scheduled to PRN. Thanks. *2. Cyanocobalamin 1000mcg PO daily and ergocalciferol 1.25mg PO Mondays. Please consider ordering vitamin B12 and D levels as the last levels are from 06/08/21 and 01/07/21 respectively. Thanks. Date of Note:: 08/26/22
[2022-08-26] MEDS: 0.9% Saline Lock 10 ML Syringe IV (16:00)
[2022-08-26] MEDS: Menthol/Lanolin/Calamine/Znox 113 GM Tube 1 APPLIC TOPICAL (16:04)
[2022-08-26] MEDS: Senna/Docusate Sodium 1 Tablet 2 TABLET PO (17:22)
[2022-08-26] MEDS: Tamsulosin HCl 0.4 MG Capsule 0.8 MG PO (21:12)
[2022-08-26] MEDS: Ammonium Lactate 225 gm Bottle 1 APPLIC TOPICAL (21:13)
[2022-08-26] MEDS: Acetaminophen 500 MG Tablet 1000 MG PO (21:19)
[2022-08-27] MEDS: Cyanocobalamin 500 MCG Tablet 1000 MCG PO (05:22)
[2022-08-27] MEDS: hydroCHLOROthiazide 12.5mg 12.5 MG PO (05:23)
[2022-08-27] MEDS: APIXABAN 2.5 MG TABLET (WCH) PO ×2 (05:23→18:17)
[2022-08-27] MEDS: Finasteride 5 MG Tablet PO (05:24)
[2022-08-27 05:26] VITALS: BP 130/74; PULSE 103
[2022-08-27] MEDS: Metoprolol Tartrate 25 MG Tablet PO (05:26)
[2022-08-27] MEDS: oxyCODONE 5 MG Tablet PO ×3 (09:28→22:47)
[2022-08-27] MEDS: Losartan Potassium 50 MG Tablet PO (09:28)
[2022-08-27] MEDS: Potassium Chloride Oral Tablet 20 MEQ PO (09:29)
[2022-08-27] MEDS: Menthol/Lanolin/Calamine/Znox 113 GM Tube 1 APPLIC TOPICAL ×2 (09:30→22:51)
--- NOTE | 2022-08-27 10:07 | CASEMGMT ---
Social Work IDT met with patient and son for care plan meeting. Discussed patient's progress in PT/OT/SN. Educated to [facility] insurance with NRD 08/25 and continued stay is not guaranteed with each review. Pt's goal is to return home at [facility]. Pt does need to complete 12 steps to enter his home and have grullon removed. SW to continue to follow for DC planning. Syl Rendon, ASSISTANT PROFESSOR OF MATHEMATICS COMMERCIAL RELATIONSHIP MANAGER
[2022-08-27] MEDS: Acetaminophen 500 MG Tablet 1000 MG PO (14:29)
[2022-08-27 14:37] VITALS: BP 127/61; PULSE 96; RESP 16; TEMP 36.1; O2SAT 96
[2022-08-27] MEDS: Senna/Docusate Sodium 1 Tablet 2 TABLET PO (18:17)
[2022-08-27] MEDS: Tamsulosin HCl 0.4 MG Capsule 0.8 MG PO (22:49)
[2022-08-27] MEDS: Ammonium Lactate 225 gm Bottle 1 APPLIC TOPICAL (22:50)
[2022-08-28] MEDS: 0.9% Saline Lock 10 ML Syringe IV ×2 (06:00→17:36)
[2022-08-28] MEDS: Senna/Docusate Sodium 1 Tablet 2 TABLET PO ×2 (06:01→17:35)
[2022-08-28] MEDS: oxyCODONE 5 MG Tablet PO ×4 (06:01→22:08)
[2022-08-28 06:02] VITALS: BP 120/63; PULSE 110
[2022-08-28] MEDS: hydroCHLOROthiazide 12.5mg 12.5 MG PO (06:02)
[2022-08-28] MEDS: Finasteride 5 MG Tablet PO (06:02)
[2022-08-28] MEDS: APIXABAN 2.5 MG TABLET (WCH) PO ×2 (06:02→22:08)
[2022-08-28] MEDS: Cyanocobalamin 500 MCG Tablet 1000 MCG PO (06:02)
[2022-08-28] MEDS: Metoprolol Tartrate 25 MG Tablet PO (06:02)
[2022-08-28] MEDS: Losartan Potassium 50 MG Tablet PO (08:23)
[2022-08-28] MEDS: Potassium Chloride Oral Tablet 20 MEQ PO (08:23)
[2022-08-28] MEDS: Acetaminophen 500 MG Tablet 1000 MG PO ×2 (10:25→22:08)
--- NOTE | 2022-08-28 10:51 | MDS.RN ---
Pain interview for MDS zoe 08/30/22 completed.
[2022-08-28] MEDS: Menthol/Lanolin/Calamine/Znox 113 GM Tube 1 APPLIC TOPICAL ×2 (14:21→22:11)
[2022-08-28 16:00] VITALS: BP 126/63; PULSE 97; RESP 18; TEMP 36.3; O2SAT 98
[2022-08-28 21:57] VITALS: PULSE 100; RESP 16; O2SAT 98
[2022-08-28] MEDS: Tamsulosin HCl 0.4 MG Capsule 0.8 MG PO (22:08)
[2022-08-28] MEDS: Ammonium Lactate 225 gm Bottle 1 APPLIC TOPICAL (22:11)
--- NOTE | 2022-08-29 02:41 | NURSING ---
Pt ref. seizure pads while in bed despite education.
[2022-08-29 06:05] VITALS: BP 149/77; PULSE 109
[2022-08-29] MEDS: Senna/Docusate Sodium 1 Tablet 2 TABLET PO ×2 (06:05→18:25)
[2022-08-29] MEDS: Finasteride 5 MG Tablet PO (06:05)
[2022-08-29] MEDS: Metoprolol Tartrate 25 MG Tablet PO (06:05)
[2022-08-29] MEDS: Polyethylene Glycol 3350 17 GM PACKET PO (06:05)
[2022-08-29] MEDS: Cyanocobalamin 500 MCG Tablet 1000 MCG PO (06:05)
[2022-08-29] MEDS: hydroCHLOROthiazide 12.5mg 12.5 MG PO (06:06)
[2022-08-29] MEDS: APIXABAN 2.5 MG TABLET (WCH) PO ×2 (06:06→18:26)
[2022-08-29] MEDS: Acetaminophen 500 MG Tablet 1000 MG PO ×2 (09:30→20:35)
[2022-08-29] MEDS: oxyCODONE 5 MG Tablet PO ×3 (09:31→20:34)
[2022-08-29] MEDS: Potassium Chloride Oral Tablet 20 MEQ PO (09:32)
[2022-08-29] MEDS: Losartan Potassium 50 MG Tablet PO (09:32)
[2022-08-29] MEDS: Menthol/Lanolin/Calamine/Znox 113 GM Tube 1 APPLIC TOPICAL ×2 (09:33→20:48)
[2022-08-29 14:12] VITALS: BP 95/60; PULSE 86; RESP 16; TEMP 37.2; O2SAT 96
--- NOTE | 2022-08-29 14:52 | CASEMGMT ---
Social Work BIMS () and PHQ-9 (12/07) completed for MDS assessment. SW explored positive responses and offered resources, medication intervention, support. Pt denied and reports he is improving and optimistic for ongoing improvement with continued stay. SW to monitor. Syl Rendon, LOANS CONSULTANT DESULPHURIZER OPERATOR
[2022-08-29] MEDS: Tamsulosin HCl 0.4 MG Capsule 0.8 MG PO (20:36)
[2022-08-29] MEDS: Ammonium Lactate 225 gm Bottle 1 APPLIC TOPICAL (20:48)
[2022-08-29 20:56] VITALS: PULSE 90; RESP 14; O2SAT 95
[2022-08-30] MEDS: oxyCODONE 5 MG Tablet PO ×2 (00:36→12:38)
--- NOTE | 2022-08-30 03:58 | NURSING ---
Pt cont. to refuse seizure precautions this shift.
[2022-08-30] MEDS: Finasteride 5 MG Tablet PO (05:52)
[2022-08-30] MEDS: Cyanocobalamin 500 MCG Tablet 1000 MCG PO (05:52)
[2022-08-30 05:53] VITALS: BP 128/74; PULSE 96
[2022-08-30] MEDS: Metoprolol Tartrate 25 MG Tablet PO (05:53)
[2022-08-30] MEDS: Polyethylene Glycol 3350 17 GM PACKET PO (05:53)
[2022-08-30] MEDS: APIXABAN 2.5 MG TABLET (WCH) PO ×2 (05:53→17:30)
[2022-08-30] MEDS: hydroCHLOROthiazide 12.5mg 12.5 MG PO (05:53)
[2022-08-30] MEDS: Potassium Chloride Oral Tablet 20 MEQ PO (10:44)
[2022-08-30] MEDS: Losartan Potassium 50 MG Tablet PO (10:44)
[2022-08-30] MEDS: Menthol/Lanolin/Calamine/Znox 113 GM Tube 1 APPLIC TOPICAL ×2 (10:44→21:16)
[2022-08-30] MEDS: Acetaminophen 500 MG Tablet 1000 MG PO (15:01)
[2022-08-30 16:00] VITALS: BP 114/67; PULSE 77; RESP 16; TEMP 36.1; O2SAT 99
--- NOTE | 2022-08-30 16:30 | RAD_ITS ---
STUDY: X-RAY - LEFT ANKLE REASON FOR EXAM: Male, 66 years old. Pain TECHNIQUE: 3 view(s) of the ankle. COMPARISON: None. FINDINGS: Normal visualized distal tibia and fibula. Normal medial and lateral malleoli. Normal tibiotalar articulation and ankle mortise. Small calcaneal spur and enthesophyte. Degenerative spurring of the dorsal midfoot. The soft tissue structures are unremarkable. RAD/Ankle min 3 Views IMPRESSION: No fracture, malalignment or erosive process. Electronically Signed: Damon Carney (Brooks), at 17:14 EDT ,
--- NOTE | 2022-08-30 16:30 | RAD_ITS ---
STUDY: X-RAY - RIGHT ANKLE REASON FOR EXAM: Male, 66 years old. PAIN TECHNIQUE: 3 view(s) of the ankle. COMPARISON: None. FINDINGS: Normal visualized distal tibia and fibula. Normal medial and lateral malleoli. Normal tibiotalar articulation and ankle mortise. Small calcaneal spur and enthesophyte. Degenerative dorsal spurring of the mid foot. The soft tissue structures are unremarkable. RAD/Ankle min 3 Views IMPRESSION: No fracture, malalignment or erosive process. Electronically Signed: Damon Carney (Brooks), at 17:14 EDT ,
[2022-08-30] MEDS: MethylPREDNISolone DosePak 4 MG BOX PO ×2 (17:28→21:10)
[2022-08-30] MEDS: 0.9% Saline Lock 10 ML Syringe IV (17:33)
[2022-08-30 21:00] VITALS: PULSE 87; RESP 16; O2SAT 95
[2022-08-30] MEDS: Tamsulosin HCl 0.4 MG Capsule 0.8 MG PO (21:10)
[2022-08-30] MEDS: Ammonium Lactate 225 gm Bottle 1 APPLIC TOPICAL (21:14)
[2022-08-31] MEDS: guaiFENesin 1,200 MG Tablet 1200 MG PO ×2 (00:04→16:57)
[2022-08-31 04:02] LABS: Absolute Lymphocyte Count 0.64 X10^3/uL (0.83-4.51); Absolute Neutrophil Count 7.5 X10^3/uL (2.0-7.7); Basophil# 0.01 X10^3/uL; Basophil% 0.1 % (0-1); Eosinophil# 0.01 X10^3/uL; Eosinophils% 0.1 % (0-5); Hematocrit 35.6 % (40-54); Hemoglobin 11.2 g/dL (13.0-16.5); Lymphocyte # 0.64 X10^3/ul (0.83-4.51); Lymphocyte % 7.7 % (19-41); Mean Corp Hgb Conc 31.5 g/dL (32-36); Mean Corpuscular Hgb 26.2 pg (27.0-32.0); Mean Corpuscular Volume 83.2 fL (80-94); Mean Platelet Vol. 9.6 fl (6.2-12.0); Monocyte# 0.23 X10^3/uL; Monocyte% 2.8 % (0-10); NRBC Flagged by Analyzer 0 % (0-5); Neutrophil # 7.45 X10^3/uL (2.7-7.7); Neutrophil % 89.1 % (47-70); Platelet Count 379 K/mm3 (150-450); RBC Distribution Width CV 14.5 % (11.6-14.6); RBC Distribution Width SD 43.8 fl (35.1-43.9); Red Blood Count 4.28 M/mm3 (4.6-6.2); White Blood Count 8.4 K/mm3 (4.4-11.0)
[2022-08-31 04:35] LABS: Anion Gap 7 (5-15); BUN 23 mg/dL (7-18); BUN/Creat Ratio 25.1 RATIO (10-20); Calcium,Total 9.4 mg/dL (8.5-10.1); Chloride 103 mmol/L (98-107); Creatinine, Serum 0.92 mg/dL (0.70-1.30); EST Glomerular Filtration Rate 87 mL/min (>60); Est Glom Filt Rate - Afr Amer 105 mL/min (>60); Estimated Creatinine Clearance 81.85 ml/min; Glucose 156 mg/dL (74-106); Potassium 4.8 mmol/L (3.5-5.1); Sodium Level 135 mmol/L (136-145)
[2022-08-31] MEDS: Polyethylene Glycol 3350 17 GM PACKET PO (06:54)
[2022-08-31 06:55] VITALS: BP 140/65; PULSE 92
[2022-08-31] MEDS: Metoprolol Tartrate 25 MG Tablet PO (06:55)
[2022-08-31] MEDS: hydroCHLOROthiazide 12.5mg 12.5 MG PO (06:56)
[2022-08-31] MEDS: Cyanocobalamin 500 MCG Tablet 1000 MCG PO (06:56)
[2022-08-31] MEDS: APIXABAN 2.5 MG TABLET (WCH) PO ×2 (06:56→16:59)
[2022-08-31] MEDS: Finasteride 5 MG Tablet PO (06:57)
[2022-08-31] MEDS: Senna/Docusate Sodium 1 Tablet 2 TABLET PO ×2 (06:57→16:58)
[2022-08-31] MEDS: Potassium Chloride Oral Tablet 20 MEQ PO (08:38)
[2022-08-31] MEDS: MethylPREDNISolone DosePak 4 MG BOX PO ×4 (08:39→21:21)
[2022-08-31] MEDS: Losartan Potassium 50 MG Tablet PO (08:39)
[2022-08-31] MEDS: oxyCODONE 5 MG Tablet PO ×3 (08:43→21:21)
[2022-08-31] MEDS: Menthol/Lanolin/Calamine/Znox 113 GM Tube 1 APPLIC TOPICAL ×2 (08:44→21:33)
[2022-08-31] MEDS: Tuberculin,Purif.prot.deriv. 50 TU/ML Vial 0.1 ML ID (12:21)
[2022-08-31 15:05] VITALS: BP 108/61; PULSE 75; RESP 18; TEMP 35.8; O2SAT 99
[2022-08-31] MEDS: Tamsulosin HCl 0.4 MG Capsule 0.8 MG PO (21:21)
[2022-08-31] MEDS: Ammonium Lactate 225 gm Bottle 1 APPLIC TOPICAL (21:29)
[2022-09-01] MEDS: Cyanocobalamin 500 MCG Tablet 1000 MCG PO (05:53)
[2022-09-01 05:54] VITALS: BP 155/82; PULSE 90
[2022-09-01] MEDS: hydroCHLOROthiazide 12.5mg 12.5 MG PO (05:54)
[2022-09-01] MEDS: Metoprolol Tartrate 25 MG Tablet PO (05:54)
[2022-09-01] MEDS: Finasteride 5 MG Tablet PO (05:55)
[2022-09-01] MEDS: guaiFENesin 1,200 MG Tablet 1200 MG PO (05:55)
[2022-09-01] MEDS: Ergocalciferol 1.25 MG (50, 000 UNIT) Capsule PO (05:55)
[2022-09-01] MEDS: Losartan Potassium 50 MG Tablet PO (08:11)
[2022-09-01] MEDS: oxyCODONE 5 MG Tablet PO ×2 (08:11→17:38)
[2022-09-01] MEDS: Aspirin E.C. 81 MG Tablet PO (08:11)
[2022-09-01] MEDS: Potassium Chloride Oral Tablet 20 MEQ PO (08:11)
[2022-09-01] MEDS: MethylPREDNISolone DosePak 4 MG BOX PO ×4 (08:12→22:55)
[2022-09-01] MEDS: Menthol/Lanolin/Calamine/Znox 113 GM Tube 1 APPLIC TOPICAL ×2 (08:14→22:56)
--- NOTE | 2022-09-01 10:49 | NURSING ---
dopper RLE per Dr Lobo, vascular reported negative for DVTS
--- NOTE | 2022-09-01 11:05 | NURSING ---
Patient to have remaining alex out on 09/05 here at [facility] per Dr. Edwards. Must continue to wear CJ hose stockings due to increased swelling.
[2022-09-01 16:00] VITALS: BP 139/69; PULSE 92; RESP 17; TEMP 36; O2SAT 100
--- NOTE | 2022-09-01 16:28 | NURSING ---
Patient straight cathed this afternoon 1000 mLs clear yellow urine emptied. Patient tolerated well.
--- NOTE | 2022-09-01 16:43 | CASEMGMT ---
Social Work Insurance issued LCD 09/03, DC 09/04. MARCO spoke with pt and explained appeal rights. Pt states he does not feel ready to go home for reasons of: grullon removed this date and voiding trials unsuccessful, likely need replaced; is not walking household distance; is not completing the 12 steps needing to get in and out of the home and a ramp is not an option; fear of falling in the shower - OT ADL scheduled for 09/02 to address; pt lives home alone and son works full-time, thus no assistance available. SW educated and provided list of skilled HHC providers if home is the outcome. SW educated and provided list of SNFs as pt has [employer] secondary insurance that potentially can cover short-term SNF stay. Pt plans to appeal insurance decision, speak with son about DC options. If home, pt needs a hospital bed. SW to follow up and assist with DC planning. Plan: pending appeal, DC 09/04 to home w/HHC, hospital bed vs SNF, intermediate, part B therapies. DEANN FaganW
[2022-09-01] MEDS: Senna/Docusate Sodium 1 Tablet 2 TABLET PO (17:35)
--- NOTE | 2022-09-01 19:45 | PCM.DC.SUM ---
Providers Date of Admission: 08/23/22 Primary Care Physician: Orin [facility] Consultations 08/24/22 07:47 Consult: Podiatry Routine Consulting Provider: Lion Khan Reason for Consult: URINARY RETENTION, REINSERTED NOVOA 08/23 EMERGENT Consult: No Notified: Yes Date Notified: 08/24/22 Time Notified: 07:48 Method of Notification: Verbal Method of Consult:: In-Person 08/24/22 07:52 Consult: Podiatry Routine Consulting Provider: Joshua Booth Reason for Consult: Thick yellow long toenails/foot care EMERGENT Consult: No MD Notified: Yes Date Notified: 08/24/22 Time Notified: 11:20 Method of Notification: Verbal Method of Consult:: In-Person Reason For Visit: RT TOTAL KNEE Diagnosis Discharge Diagnosis (1) Pain in right toe(s): Status: Acute Code(s): M79.674 - Pain in right toe(s) (2) Pain in left toe(s): Status: Acute Code(s): M79.675 - Pain in left toe(s) (3) Tinea unguium: Status: Acute Code(s): B35.1 - Tinea unguium Plan 66 year old male with below past medical history hospitalized for left total knee replacement with Dr. Lobo, complicated by urinary hesitancy, admitted to TCU with debility, here for rehabilitation, strengthening, prior to discharge home alone. Debility - PT/OT. Pain - Tylenol 1000mg q6h prn pain (1-3), Oxycodone 5-10mg q4h prn pain (4-10). Bowel - Miralax 17gm daily, senna/colace 2 tablets bid, Dulcolax 10mg pr x 1 prn, MOM 30ml po x 1 prn. Adult immunization - Administer pneumonia vaccine, covid19 vaccine, flu vaccine as appropriate. DVT prophylaxis - Eliquis 2.5mg bid thru 08/31/2022. CV prophylaxis - Aspirin 81mg daily starting 09/01/2022. Vitamin B12 deficiency - B12 1000mcg daily. Vitamin D deficiency - Vitamin D 1.25mg per week. Congestion - Mucinex 1200mg po daily prn. Hypertension - Metoprolol 25mg daily, Losartan 50mg daily, HCTZ 12.5mg daily. Allergic rhinitis - Loratadine 10mg daily prn. BPH - Finasteride 5mg daily, Tamsulosin 0.8mg qhs. Medications at Discharge Home Medications cholecalciferol (vitamin D3) 1,250 mcg (50,000 unit) capsule 50,000 unit PO MO SUPPLEMENT #4 caps 01/10/19 metoprolol tartrate 25 mg tablet 25 mg PO DAILY BP 04/27/20 aspirin 81 mg tablet,delayed release (Adult Low Dose Aspirin) 81 mg PO QODAY SUPPLEMENT 07/11/20 cetirizine 10 mg tablet 10 mg PO PRN PRN ALLERGIES 07/11/20 mecobalamin (vitamin B12) 1,000 mcg chewable tablet 1,000 mcg PO DAILY SUPPLEMENT 03/11/21 guaifenesin 1,200 mg tablet, extended release 12 hr (Mucinex) 1,200 mg PO PRN PRN Cough 04/15/22 hydrochlorothiazide 12.5 mg capsule 12.5 mg PO DAILY BP 04/15/22 losartan 50 mg tablet 50 mg PO DAILY BP 04/15/22 acetaminophen 500 mg tablet 1,000 mg PO Q6H PRN PRN Pain Score 1-3 #0 tabs 09/01/22 ammonium lactate 12 % lotion 1 applic topical QHS #0 grams 09/01/22 finasteride 5 mg tablet 5 mg PO DAILY #0 tabs 09/01/22 menthol 0.44 %-zinc oxide 20.6 % topical ointment (Calmoseptine) 1 applic topical 1000,2200 #0 grams 09/01/22 oxycodone 5 mg tablet 5 - 10 mg PO Q4H PRN PRN Pain Score 4-10 3 days #18 tabs 09/01/22 polyethylene glycol 3350 17 gram oral powder packet 17 g PO DAILY #0 ea 09/01/22 potassium chloride 20 mEq tablet,extended release(part/cryst) (Klor-Con M) 20 meq PO BREAKFAST #0 tabs 09/01/22 sennosides 8.6 mg-docusate sodium 50 mg tablet (Stool Softener-Stimulant Laxative) 2 tab PO BID #0 tabs 09/01/22 tamsulosin 0.4 mg capsule 0.8 mg PO QHS #0 caps 09/01/22 Hospital Course Operations total knee replacement (Left.) Procedures None Summary of Care Provided Minutes Spent on Discharge: 35 Hospital Course: 66 year old male with below past medical history hospitalized for left total knee replacement with Dr. Lobo, complicated by urinary hesitancy, admitted to TCU with debility, here for rehabilitation, strengthening, prior to discharge home alone. 09/01/2022 Failed voiding trial after Novoa catheter removal, will discharge with indwelling novoa catheter, follow up with Dr. Khan as outpatient. Pending appeal, discharge to SNF 09/04/2022, intermediate, Part B therapies. Physical Exam Const alert General Appearance: cooperative HEENT normocephalic Eyes PERRL and EOMs intact bilaterally Neck supple, no JVD and no carotid bruits Resp normal respiratory effort, normal air movement and clear to auscultation bilaterally Cardio regular rate and regular rhythm GI normal to inspection, nondistended, normoactive bowel sounds, non-tender and non-distended Extremity normal capillary refill General Extremity: Negative for edema Skin no rashes or lesions noted General Skin Exam: no breakdown Psych affect normal Appearance: appropriate Weight / BMI Weight Weight: 125.282 kg Body Mass Index (BMI) 38.5 ABG / Lab / Microbiology Data Result Diagrams: 08/31/22 03:25 08/31/22 03:25 Microbiology: Microbiology 08/27/22 12:35 Nasal Secretion SARS-CoV-2 Antigen (Rapid) - Final 08/25/22 06:14 Nasal Secretion SARS-CoV-2 Antigen (Rapid) - Final D/C Instructions Discharge Diet: No restrictions Discharge Activity: Return to Normal Activity, May Shower and Use Walker Weight Bearing Status: Weight bearing as tolerated Call your doctor if you observe: Fever of 101 or Higher, Inability to urinate, Inability to have a bowel movement, Shortness of breath, Dizziness, Fainting spells, Swelling in the ankles, Chest pain and Uncontrolled pain Additional Instructions: Pending appeal, discharge to SNF 09/04/2022, intermediate, Part B therapies. Please Follow Up With: Bryant Lobo DO When: As scheduled. Meaningful Use Info Meaningful Use Diagnoses (Choose all that apply): None applicable Discharge Plan Admission Admit Date/Time: 08/23/22 16:50 Primary Reason for Your Visit: Debility. Attending Provider: Jude Aguilar Chi [facility] Consult[facility] Providers: Lion Khan ; Joshua Booth Instructions Additional Instructions / Restrictions: Pending appeal, discharge to [facility] 09/04/2022, intermediate, Part B therapies. Discharge Orders/Prescriptions Prescriptions: New ammonium lactate 12 % Lotion 1 applic topical QHS Qty: 0 0RF Protocol: *Topical Application Instructions APPLICATION INSTRUCTIONS: heels polyethylene glycol 3350 17 gram Powder In Packet 17 g PO DAILY Qty: 0 0RF sennosides-docusate sodium [Stool Softener-Stimulant Laxat] 8.6-50 mg Tablet 2 tab PO BID Qty: 0 0RF acetaminophen 500 mg Tablet 1,000 mg PO Q6H PRN PRN (Reason: Pain Score 1-3) Qty: 0 0RF potassium chloride [Klor-Con M20] 20 mEq Tablet,Er Particles/Crystals 20 meq PO BREAKFAST Qty: 0 0RF tamsulosin 0.4 mg Capsule 0.8 mg PO QHS Qty: 0 0RF finasteride 5 mg Tablet 5 mg PO DAILY Qty: 0 0RF oxycodone 5 mg Tablet 5 - 10 mg PO Q4H PRN PRN (Reason: Pain Score 4-10) 3 Days Qty: 18 0RF menthol-zinc oxide [Calmoseptine] 0.44-20.6 % Ointment 1 applic topical 1000,2200 Qty: 0 0RF Protocol: *Topical Application Instructions APPLICATION INSTRUCTIONS: bilat buttocks Continued cholecalciferol (vitamin D3) 50,000 unit capsule 50,000 unit PO MO Qty: 4 Label Comments: TAKE 1 CAPSULE BY MOUTH ONCE A WEEK metoprolol tartrate 25 mg tablet 25 mg PO DAILY cetirizine 10 mg tablet 10 mg PO PRN PRN (Reason: ALLERGIES) Label Comments: TAKE 1 TABLET BY MOUTH ONCE DAILY aspirin [Adult Low Dose Aspirin] 81 mg tablet,delayed release (DR/EC) 81 mg PO QODAY mecobalamin (vitamin B12) 1,000 mcg tablet,chewable 1,000 mcg PO DAILY hydrochlorothiazide 12.5 mg capsule 12.5 mg PO DAILY Label Comments: TAKE 1 CAPSULE BY MOUTH ONCE DAILY NEEDED FOR LEG SWELLING Mucinex 1,200 mg Tablet Extended Release 12hr 1,200 mg PO PRN PRN (Reason: Cough) Discontinued tamsulosin 0.4 mg capsule 0.4 mg PO QHS Qty: 30 acetaminophen [Tylenol Extra Strength] 500 mg tablet 500 mg PO Q6H PRN (Reason: Pain) oxycodone 5 mg Tablet 5 - 10 mg PO Q4H PRN PRN (Reason: Pain Score 4-10) 7 Days Qty: 60 0RF Eliquis 5 mg tablet 2.5 mg PO 0700,1900 No Action losartan 50 mg tablet 50 mg PO DAILY Label Comments: TAKE 1 TABLET BY MOUTH ONCE DAILY Referrals / Follow Up: Jaguar Dickerson DPM [Med Staff - Active Staff] - Lion Khan MD [Med Staff - Active Staff] - Within 2 Weeks [facility],Orin Rendon [Primary Care Provider] - Disposition Disposition (needs filled in before D/C Order can be placed): NonSkilled NH/Intermed Care
--- NOTE | 2022-09-01 19:52 | PCM.TXEXTCAR ---
Diet Diet Order/Speech Therapy: 08/23/22 17:48 Diet: Regular - General Food consistency:: Regular Liquid Consistency:: Regular/Thin Is pt able to select menu?: Yes Routine Orders/Code Status Code Status: Full Code Wound(s) SURGICAL INCISION RIGHT KNEE: Wound Type: Surgical Incision Dressing Change: Dry Sterile Dressing SURGICAL DRESSING RIGHT DISTAL KNEE: Wound Type: Surgical Incision Dressing Change: Dry Sterile Dressing Therapies Weight Bearing: Weight bearing as tolerated Extremity Affected:: Bilateral Lower Physical Therapy: Eval and Treat Occupational Therapy: Eval and Treat Problem/Diagnosis (1) Pain in right toe(s): Status: Acute Code(s): M79.674 - Pain in right toe(s) (2) Pain in left toe(s): Status: Acute Code(s): M79.675 - Pain in left toe(s) (3) Tinea unguium: Status: Acute Code(s): B35.1 - Tinea unguium Plan 66 year old male with below past medical history hospitalized for left total knee replacement with Dr. Lobo, complicated by urinary hesitancy, admitted to TCU with debility, here for rehabilitation, strengthening, prior to discharge home alone. Debility - PT/OT. Pain - Tylenol 1000mg q6h prn pain (1-3), Oxycodone 5-10mg q4h prn pain (4-10). Bowel - Miralax 17gm daily, senna/colace 2 tablets bid, Dulcolax 10mg pr x 1 prn, MOM 30ml po x 1 prn. Adult immunization - Administer pneumonia vaccine, covid19 vaccine, flu vaccine as appropriate. DVT prophylaxis - Eliquis 2.5mg bid thru 08/31/2022. CV prophylaxis - Aspirin 81mg daily starting 09/01/2022. Vitamin B12 deficiency - B12 1000mcg daily. Vitamin D deficiency - Vitamin D 1.25mg per week. Congestion - Mucinex 1200mg po daily prn. Hypertension - Metoprolol 25mg daily, Losartan 50mg daily, HCTZ 12.5mg daily. Allergic rhinitis - Loratadine 10mg daily prn. BPH - Finasteride 5mg daily, Tamsulosin 0.8mg qhs. Allergies/Procedures Done in Hospital Allergies streptomycin Allergy (Verified 09/01/22 08:57) Other NUMBNESS Procedures: None Type of Care/Length of Stay Estimated LOS: Convalescent Care Less Than 30 days Type of Care Needed: Intermediate Rehab Potential: Fair Prognosis: Good Additional Orders/Day of Discharge Day of Discharge: 09/04/22 Dietary and Speech Recommendations Dietitian Recommendations/Changes: Continue regular diet as ordered per res request Follow Up Care Please Follow Up With: Bryant Lobo DO Discharge Plan Admission Admit Date/Time: 08/23/22 16:50 Primary Reason for Your Visit: Debility. Attending Provider: Jude Aguilar Chi [facility] Providers: Lion Khan ; Joshua Booth Instructions Additional Instructions / Restrictions: Pending appeal, discharge to SNF 09/04/2022, intermediate, Part B therapies. Discharge Orders/Prescriptions Prescriptions: New ammonium lactate 12 % Lotion 1 applic topical QHS Qty: 0 0RF Protocol: *Topical Application Instructions APPLICATION INSTRUCTIONS: heels polyethylene glycol 3350 17 gram Powder In Packet 17 g PO DAILY Qty: 0 0RF sennosides-docusate sodium [Stool Softener-Stimulant Laxat] 8.6-50 mg Tablet 2 tab PO BID Qty: 0 0RF acetaminophen 500 mg Tablet 1,000 mg PO Q6H PRN PRN (Reason: Pain Score 1-3) Qty: 0 0RF potassium chloride [Klor-Con M20] 20 mEq Tablet,Er Particles/Crystals 20 meq PO BREAKFAST Qty: 0 0RF tamsulosin 0.4 mg Capsule 0.8 mg PO QHS Qty: 0 0RF finasteride 5 mg Tablet 5 mg PO DAILY Qty: 0 0RF oxycodone 5 mg Tablet 5 - 10 mg PO Q4H PRN PRN (Reason: Pain Score 4-10) 3 Days Qty: 18 0RF menthol-zinc oxide [Calmoseptine] 0.44-20.6 % Ointment 1 applic topical 1000,2200 Qty: 0 0RF Protocol: *Topical Application Instructions APPLICATION INSTRUCTIONS: bilat buttocks Continued cholecalciferol (vitamin D3) 50,000 unit capsule 50,000 unit PO MO Qty: 4 Label Comments: TAKE 1 CAPSULE BY MOUTH ONCE A WEEK metoprolol tartrate 25 mg tablet 25 mg PO DAILY cetirizine 10 mg tablet 10 mg PO PRN PRN (Reason: ALLERGIES) Label Comments: TAKE 1 TABLET BY MOUTH ONCE DAILY aspirin [Adult Low Dose Aspirin] 81 mg tablet,delayed release (DR/EC) 81 mg PO QODAY mecobalamin (vitamin B12) 1,000 mcg tablet,chewable 1,000 mcg PO DAILY hydrochlorothiazide 12.5 mg capsule 12.5 mg PO DAILY Label Comments: TAKE 1 CAPSULE BY MOUTH ONCE DAILY NEEDED FOR LEG SWELLING Mucinex 1,200 mg Tablet Extended Release 12hr 1,200 mg PO PRN PRN (Reason: Cough) Discontinued tamsulosin 0.4 mg capsule 0.4 mg PO QHS Qty: 30 acetaminophen [Tylenol Extra Strength] 500 mg tablet 500 mg PO Q6H PRN (Reason: Pain) oxycodone 5 mg Tablet 5 - 10 mg PO Q4H PRN PRN (Reason: Pain Score 4-10) 7 Days Qty: 60 0RF Eliquis 5 mg tablet 2.5 mg PO 0700,1900 No Action losartan 50 mg tablet 50 mg PO DAILY Label Comments: TAKE 1 TABLET BY MOUTH ONCE DAILY Referrals / Follow Up: Jaguar Dickerson DPM [Med Staff - Active Staff] - Lion Khan MD [Med Staff - Active Staff] - Within [address] [facility],Orin Rendon [Primary Care Provider] - Disposition Disposition (needs filled in before D/C Order can be placed): NonSkilled NH/Intermed Care
[2022-09-01] MEDS: Tamsulosin HCl 0.4 MG Capsule 0.8 MG PO (22:55)
[2022-09-01] MEDS: Ammonium Lactate 225 gm Bottle 1 APPLIC TOPICAL (22:56)
[2022-09-02] MEDS: Acetaminophen 500 MG Tablet 1000 MG PO (00:15)
[2022-09-02] MEDS: oxyCODONE 5 MG Tablet PO ×3 (00:16→20:20)
[2022-09-02] MEDS: Senna/Docusate Sodium 1 Tablet 2 TABLET PO ×2 (06:40→18:01)
[2022-09-02] MEDS: Cyanocobalamin 500 MCG Tablet 1000 MCG PO (06:40)
[2022-09-02 06:41] VITALS: BP 143/97; PULSE 97
[2022-09-02] MEDS: Metoprolol Tartrate 25 MG Tablet PO (06:41)
[2022-09-02] MEDS: hydroCHLOROthiazide 12.5mg 12.5 MG PO (06:41)
[2022-09-02] MEDS: Finasteride 5 MG Tablet PO (06:41)
[2022-09-02] MEDS: Potassium Chloride Oral Tablet 20 MEQ PO (08:21)
[2022-09-02] MEDS: MethylPREDNISolone DosePak 4 MG BOX PO ×3 (08:21→20:36)
[2022-09-02] MEDS: Losartan Potassium 50 MG Tablet PO (08:21)
[2022-09-02] MEDS: Menthol/Lanolin/Calamine/Znox 113 GM Tube 1 APPLIC TOPICAL ×2 (08:22→20:23)
--- NOTE | 2022-09-02 11:06 | CASEMGMT ---
Social Work Appealed filed and records sent to [facility]. . SW spoke with pt. Son was out of town last night and plans to speak with pt on this date to discuss DC plans. Will continue to follow. Syl Rendon, SOCIAL SERVICE DIRECTOR BROTHEL KEEPER
[2022-09-02 13:52] VITALS: BP 126/53; PULSE 79; RESP 18; TEMP 36.2; O2SAT 99
[2022-09-02 16:15] VITALS: BMI 36.9
[2022-09-02] MEDS: Tamsulosin HCl 0.4 MG Capsule 0.8 MG PO (20:21)
[2022-09-02] MEDS: Ammonium Lactate 225 gm Bottle 1 APPLIC TOPICAL (20:22)
--- NOTE | 2022-09-03 03:06 | NURSING ---
Pt cont. to ref. seizure pads to bed rails despite education of risks.
[2022-09-03 05:50] VITALS: BP 132/72; PULSE 101
[2022-09-03] MEDS: Senna/Docusate Sodium 1 Tablet 2 TABLET PO (05:50)
[2022-09-03] MEDS: Polyethylene Glycol 3350 17 GM PACKET PO (05:50)
[2022-09-03] MEDS: hydroCHLOROthiazide 12.5mg 12.5 MG PO (05:50)
[2022-09-03] MEDS: Metoprolol Tartrate 25 MG Tablet PO (05:50)
[2022-09-03] MEDS: Finasteride 5 MG Tablet PO (05:50)
[2022-09-03] MEDS: Cyanocobalamin 500 MCG Tablet 1000 MCG PO (05:51)
--- NOTE | 2022-09-03 07:47 | MDS.RN ---
Information for the mds was obtained from review of the clinical record, interview of resident, staff, and direct observation of resident's care.
--- NOTE | 2022-09-03 08:47 | CASEMGMT ---
Addendum entered by Syl Rendon 09/03/22 13:05: PASRR completed in preparation for DC to SNF. Triggered Level II evaluation. Will await results. Addendum entered by Syl Rendon 09/03/22 12:19: [facility] with part B therapies. MARCO notified pt. -- [facility]. SW notified pt, WVM and IDT. Pt will remain on TCU until new LCD is issued. Original Note: Social Work Spoke with pt and he still hasn't spoken to son, but plans to this morning. SW educated a DC plan needs in place in the case pt loses appeal and will need to DC tomorrow. Pt requesting referral to W until he talks to son. [facility] DEANN Fagan
[2022-09-03] MEDS: Potassium Chloride Oral Tablet 20 MEQ PO (10:10)
[2022-09-03] MEDS: Aspirin E.C. 81 MG Tablet PO (10:10)
[2022-09-03] MEDS: Losartan Potassium 50 MG Tablet PO (10:10)
[2022-09-03] MEDS: MethylPREDNISolone DosePak 4 MG BOX PO ×2 (10:10→22:19)
[2022-09-03] MEDS: oxyCODONE 5 MG Tablet PO ×3 (10:16→22:19)
[2022-09-03] MEDS: Menthol/Lanolin/Calamine/Znox 113 GM Tube 1 APPLIC TOPICAL ×2 (12:42→22:21)
[2022-09-03 14:46] VITALS: BP 109/60; PULSE 86; RESP 16; TEMP 36; O2SAT 97
[2022-09-03] MEDS: guaiFENesin 1,200 MG Tablet 1200 MG PO (17:47)
[2022-09-03 20:25] VITALS: PULSE 90; RESP 18; O2SAT 95
[2022-09-03] MEDS: Tamsulosin HCl 0.4 MG Capsule 0.8 MG PO (22:19)
[2022-09-03] MEDS: Ammonium Lactate 225 gm Bottle 1 APPLIC TOPICAL (22:20)
[2022-09-04 06:11] VITALS: BP 134/69; PULSE 84
[2022-09-04] MEDS: Finasteride 5 MG Tablet PO (06:11)
[2022-09-04] MEDS: Metoprolol Tartrate 25 MG Tablet PO (06:11)
[2022-09-04] MEDS: Cyanocobalamin 500 MCG Tablet 1000 MCG PO (06:11)
[2022-09-04] MEDS: Senna/Docusate Sodium 1 Tablet 2 TABLET PO (06:11)
[2022-09-04] MEDS: oxyCODONE 5 MG Tablet PO ×3 (06:12→22:12)
[2022-09-04] MEDS: hydroCHLOROthiazide 12.5mg 12.5 MG PO (06:12)
[2022-09-04 07:11] VITALS: BP 134/69; PULSE 84
[2022-09-04] MEDS: Potassium Chloride Oral Tablet 20 MEQ PO (07:39)
[2022-09-04] MEDS: MethylPREDNISolone DosePak 4 MG BOX PO (07:39)
[2022-09-04] MEDS: Losartan Potassium 50 MG Tablet PO (07:39)
[2022-09-04] MEDS: Menthol/Lanolin/Calamine/Znox 113 GM Tube 1 APPLIC TOPICAL ×2 (07:40→20:42)
[2022-09-04 16:00] VITALS: BP 117/60; PULSE 62; RESP 14; TEMP 36.2; O2SAT 96
[2022-09-04 20:23] VITALS: PULSE 82; RESP 16; O2SAT 97
[2022-09-04] MEDS: Tamsulosin HCl 0.4 MG Capsule 0.8 MG PO (20:41)
[2022-09-04] MEDS: Ammonium Lactate 225 gm Bottle 1 APPLIC TOPICAL (20:42)
[2022-09-05] MEDS: Senna/Docusate Sodium 1 Tablet 2 TABLET PO (05:16)
[2022-09-05 05:17] VITALS: BP 125/59; PULSE 91
[2022-09-05] MEDS: Finasteride 5 MG Tablet PO (05:17)
[2022-09-05] MEDS: hydroCHLOROthiazide 12.5mg 12.5 MG PO (05:17)
[2022-09-05] MEDS: Cyanocobalamin 500 MCG Tablet 1000 MCG PO (05:17)
[2022-09-05] MEDS: Metoprolol Tartrate 25 MG Tablet PO (05:17)
[2022-09-05] MEDS: oxyCODONE 5 MG Tablet PO ×3 (05:22→23:49)
[2022-09-05] MEDS: Aspirin E.C. 81 MG Tablet PO (08:33)
[2022-09-05] MEDS: Losartan Potassium 50 MG Tablet PO (08:33)
[2022-09-05] MEDS: Potassium Chloride Oral Tablet 20 MEQ PO (08:33)
[2022-09-05] MEDS: Menthol/Lanolin/Calamine/Znox 113 GM Tube 1 APPLIC TOPICAL ×2 (08:35→20:36)
--- NOTE | 2022-09-05 14:50 | CASEMGMT ---
Social Work Insurance issued LCD 09/07, DC 09/08. MARCO spoke with pt, explained DC date and appeal rights. Inquired about DC home, DC to [facility]. Pt unsure at this time about DC plan, but would like to appeal again. SW noted it is a holiday weekend and DC plans would need in place prior to end of business day this date. Pt to ponder and notify this worker. -- Pt has decided to appeal and DC to [place] as previously planned. Pt requesting transport. SW has received PAS Level II results - rule out. W/C transport through [facility] at 1100. Update WVM and IDT. Plan: DC 09/08, pending appeal, to [place] DEANN Fagan TECHNICAL SPECIALIST CYTOLOGY
[2022-09-05 16:00] VITALS: BP 101/52; PULSE 88; RESP 16; TEMP 35.7; O2SAT 98
--- NOTE | 2022-09-05 16:20 | CASEMGMT ---
Social Work BIMS and PHQ-9 completed for MDS assessment. Syl Rendon, GLEASON OPERATOR PATROL COMMUNITY SERVICE OFFICER
[2022-09-05] MEDS: Tamsulosin HCl 0.4 MG Capsule 0.8 MG PO (20:35)
[2022-09-05] MEDS: Acetaminophen 500 MG Tablet 1000 MG PO (20:36)
[2022-09-05] MEDS: Ammonium Lactate 225 gm Bottle 1 APPLIC TOPICAL (20:40)
[2022-09-06] MEDS: Cyanocobalamin 500 MCG Tablet 1000 MCG PO (05:53)
[2022-09-06 05:54] VITALS: BP 121/71; PULSE 95
[2022-09-06] MEDS: hydroCHLOROthiazide 12.5mg 12.5 MG PO (05:54)
[2022-09-06] MEDS: Metoprolol Tartrate 25 MG Tablet PO (05:54)
[2022-09-06] MEDS: Senna/Docusate Sodium 1 Tablet 2 TABLET PO ×2 (05:54→16:33)
[2022-09-06] MEDS: Finasteride 5 MG Tablet PO (05:54)
[2022-09-06] MEDS: Losartan Potassium 50 MG Tablet PO (08:11)
[2022-09-06] MEDS: Potassium Chloride Oral Tablet 20 MEQ PO (08:11)
[2022-09-06] MEDS: oxyCODONE 5 MG Tablet PO ×3 (08:15→20:43)
[2022-09-06 14:56] VITALS: BP 104/53; PULSE 78; RESP 16; TEMP 36.7; O2SAT 96
[2022-09-06] MEDS: Menthol/Lanolin/Calamine/Znox 113 GM Tube 1 APPLIC TOPICAL ×2 (16:36→20:34)
[2022-09-06 20:30] VITALS: PULSE 84; RESP 14; O2SAT 98
[2022-09-06] MEDS: Ammonium Lactate 225 gm Bottle 1 APPLIC TOPICAL (20:33)
--- NOTE | 2022-09-06 20:33 | CASEMGMT ---
Social Work Pt appeal still pending per Ta and in clinical review. Pt to d/c Friday 09/08 with transport scheduled at 11:00 to [place]. Nursing unit notified to inform patient to let staff know when he hears status on his appeal. If patient wins appeal, transport to be cancelled and [place] notified by nursing. If patient has not heard status on Thursday and chooses to wait all day for result, nursing can push transport time back to late afternoon and notify [place]. Ta also faxes results to [facility] SW office if nursing staff would like to check for results fax. Terri Bello COAL FEEDER OPERATOR, BUILDING COORDINATOR
[2022-09-06] MEDS: Acetaminophen 500 MG Tablet 1000 MG PO (20:44)
[2022-09-06] MEDS: Tamsulosin HCl 0.4 MG Capsule 0.8 MG PO (20:45)
--- NOTE | 2022-09-06 21:00 | NURSING ---
Addendum entered by Shira Branch 09/08/22 04:57: patient reports no update regarding discharge appeal Original Note: patient states he has not heard result of insurance appeal at this time, patient educated to notify nurse if contacted per social sciences department chair request
[2022-09-07] MEDS: oxyCODONE 5 MG Tablet PO ×4 (05:32→23:03)
[2022-09-07 05:33] VITALS: BP 126/66; PULSE 89
[2022-09-07] MEDS: Polyethylene Glycol 3350 17 GM PACKET PO (05:33)
[2022-09-07] MEDS: Metoprolol Tartrate 25 MG Tablet PO (05:33)
[2022-09-07] MEDS: hydroCHLOROthiazide 12.5mg 12.5 MG PO (05:33)
[2022-09-07] MEDS: Senna/Docusate Sodium 1 Tablet 2 TABLET PO ×2 (05:33→17:19)
[2022-09-07] MEDS: Finasteride 5 MG Tablet PO (05:33)
[2022-09-07] MEDS: Cyanocobalamin 500 MCG Tablet 1000 MCG PO (05:34)
[2022-09-07 06:15] LABS: Absolute Lymphocyte Count 1.27 X10^3/uL (0.83-4.51); Absolute Neutrophil Count 4.9 X10^3/uL (2.0-7.7); Basophil# 0.05 X10^3/uL; Basophil% 0.7 % (0-1); Eosinophil# 0.23 X10^3/uL; Eosinophils% 3.2 % (0-5); Hematocrit 37.1 % (40-54); Hemoglobin 11.6 g/dL (13.0-16.5); Lymphocyte # 1.27 X10^3/ul (0.83-4.51); Lymphocyte % 17.6 % (19-41); Mean Corp Hgb Conc 31.3 g/dL (32-36); Mean Corpuscular Hgb 26.3 pg (27.0-32.0); Mean Corpuscular Volume 84.1 fL (80-94); Mean Platelet Vol. 9.2 fl (6.2-12.0); Monocyte# 0.71 X10^3/uL; Monocyte% 9.8 % (0-10); NRBC Flagged by Analyzer 0 % (0-5); Neutrophil # 4.93 X10^3/uL (2.7-7.7); Neutrophil % 68.1 % (47-70); Platelet Count 370 K/mm3 (150-450); RBC Distribution Width CV 14.9 % (11.6-14.6); RBC Distribution Width SD 45.5 fl (35.1-43.9); Red Blood Count 4.41 M/mm3 (4.6-6.2); White Blood Count 7.2 K/mm3 (4.4-11.0)
[2022-09-07 07:05] LABS: Anion Gap 7 (5-15); BUN 24 mg/dL (7-18); BUN/Creat Ratio 23.5 RATIO (10-20); Calcium,Total 8.9 mg/dL (8.5-10.1); Chloride 103 mmol/L (98-107); Creatinine, Serum 1.02 mg/dL (0.70-1.30); EST Glomerular Filtration Rate 77 mL/min (>60); Est Glom Filt Rate - Afr Amer 93 mL/min (>60); Estimated Creatinine Clearance 73.82 ml/min; Glucose 107 mg/dL (74-106); Potassium 4.3 mmol/L (3.5-5.1); Sodium Level 135 mmol/L (136-145)
[2022-09-07] MEDS: Aspirin E.C. 81 MG Tablet PO (09:59)
[2022-09-07] MEDS: Potassium Chloride Oral Tablet 20 MEQ PO (09:59)
[2022-09-07] MEDS: Losartan Potassium 50 MG Tablet PO (09:59)
[2022-09-07] MEDS: Menthol/Lanolin/Calamine/Znox 113 GM Tube 1 APPLIC TOPICAL ×2 (10:00→20:42)
[2022-09-07 14:44] VITALS: BP 109/67; PULSE 98; RESP 18; TEMP 36.2; O2SAT 98
[2022-09-07] MEDS: Acetaminophen 500 MG Tablet 1000 MG PO (15:10)
[2022-09-07] MEDS: Ammonium Lactate 225 gm Bottle 1 APPLIC TOPICAL (20:41)
[2022-09-07] MEDS: Tamsulosin HCl 0.4 MG Capsule 0.8 MG PO (20:42)
[2022-09-07] MEDS: guaiFENesin 1,200 MG Tablet 1200 MG PO (20:47)
[2022-09-08 05:47] VITALS: BP 145/63; PULSE 97
[2022-09-08] MEDS: oxyCODONE 5 MG Tablet PO ×3 (05:47→15:48)
[2022-09-08] MEDS: Metoprolol Tartrate 25 MG Tablet PO (05:47)
[2022-09-08] MEDS: Cyanocobalamin 500 MCG Tablet 1000 MCG PO (05:48)
[2022-09-08] MEDS: Senna/Docusate Sodium 1 Tablet 2 TABLET PO (05:48)
[2022-09-08] MEDS: Finasteride 5 MG Tablet PO (05:48)
[2022-09-08] MEDS: Ergocalciferol 1.25 MG (50, 000 UNIT) Capsule PO (05:48)
[2022-09-08] MEDS: hydroCHLOROthiazide 12.5mg 12.5 MG PO (05:48)
[2022-09-08] MEDS: Polyethylene Glycol 3350 17 GM PACKET PO (05:48)
[2022-09-08] MEDS: Losartan Potassium 50 MG Tablet PO (07:46)
[2022-09-08] MEDS: Menthol/Lanolin/Calamine/Znox 113 GM Tube 1 APPLIC TOPICAL (07:46)
[2022-09-08] MEDS: Potassium Chloride Oral Tablet 20 MEQ PO (07:46)
[2022-09-08 13:59] VITALS: BP 108/51; PULSE 85; RESP 16; TEMP 35.9; O2SAT 98
--- NOTE | 2022-09-08 14:12 | NURSING ---
R' LOST APPEAL. RECEIVED FAX FROM [facility] [id number]. NOTIFIED R' OF DISCHARGE TODAY, ORGANIZATIONAL EFFECTIVENESS DIRECTOR AT [employer]. NOTIFIED KIRKMANGERA. SPOKE WITH JEREMY AND GAVE REPORT.
== END 2022-09-08 17:00 | disposition intermediate care facility (04) | DRG 561 ==
PROVIDERS: Admitting Provider Family Medicine Geriatric Medicine; Visit Provider Family Medicine Geriatric Medicine
DX: Z47.1 Aftercare following joint replacement surgery (principal); B35.1 Tinea unguium; E53.8 Deficiency of other specified B group vitamins; E55.9 Vitamin D deficiency, unspecified; M79.674 Pain in right toe(s); I10 Essential (primary) hypertension; M19.90 Unspecified osteoarthritis, unspecified site; M79.675 Pain in left toe(s); N40.1 Benign prostatic hyperplasia with lower urinary tract symptoms; R39.11 Hesitancy of micturition; Z96.652 Presence of left artificial knee joint; Z79.899 Other long term (current) drug therapy; Z79.01 Long term (current) use of anticoagulants; Z79.82 Long term (current) use of aspirin; Z86.16 Personal history of COVID-19; Z96.651 Presence of right artificial knee joint; R33.8 Other retention of urine
CPT/HCPCS: 36415; 73610; 80048; 85014; 85018; 85025; 87426; 87811; 97110; 97116; 97162; 97166; 97530; 97535; 97802; A4216

== ENCOUNTER → 2022-09-01 | Outpatient (CLI) | payer MEDICARE, MEDICAID, SELFPAY ==
--- NOTE | 2022-09-01 10:03 | VDLE_ITS ---
Reason For Study: Right leg swelling RIGHT LEFT GSV is normal. CFV is compressible, spontaneous, phasic, CFV is compressible, spontaneous, phasic, competent, and demonstrates normal competent and demonstrates normal augmentation. augmentation. FV is compressible, spontaneous, phasic, competent and demonstrates normal augmentation. POP V is compressible, spontaneous, phasic, competent and demonstrates normal augmentation. T/P Trunk is compressible. PTV is compressible. RT PerV is compressible. Procedure This is a venous duplex using B-mode, color flow and spectral Doppler. Exam performed in department. A preliminary report was called and/or faxed to TCU RN. VL/Venous Duplex US, Unilateral Interpretation Summary There is no evidence of right lower extremity deep vein thrombosis. Right great saphenous vein appears patent and compressible segmentally. Normal flow patterns left common f emoral vein Ordering Physician: Jude Aguilar Chi Referring Physician: [facility] Performed By: Laila Felton RVT
== END | disposition home or self-care (01) ==
PROVIDERS: Referring Provider Family Medicine Geriatric Medicine; Visit Provider Family Medicine Geriatric Medicine
DX: M79.604 Pain in right leg (principal); M79.89 Other specified soft tissue disorders
CPT/HCPCS: 93971

== ENCOUNTER → 2022-09-10 | Outpatient (REF) | payer MEDICARE, MEDICAID, SELFPAY ==
[2022-09-10 06:29] LABS: Absolute Lymphocyte Count 1.29 X10^3/uL (0.83-4.51); Absolute Neutrophil Count 5.1 X10^3/uL (2.0-7.7); Basophil# 0.04 X10^3/uL; Basophil% 0.5 % (0-1); Eosinophil# 0.21 X10^3/uL; Eosinophils% 2.9 % (0-5); Hemoglobin 12.2 g/dL (13.0-16.5); Lymphocyte # 1.29 X10^3/ul (0.83-4.51); Lymphocyte % 17.6 % (19-41); Mean Corp Hgb Conc 31.3 g/dL (32-36); Mean Corpuscular Hgb 26.2 pg (27.0-32.0); Mean Corpuscular Volume 83.7 fL (80-94); Mean Platelet Vol. 9.2 fl (6.2-12.0); Monocyte% 9.5 % (0-10); NRBC Flagged by Analyzer 0 % (0-5); Neutrophil # 5.07 X10^3/uL (2.7-7.7); Neutrophil % 69.2 % (47-70); Platelet Count 323 K/mm3 (150-450); RBC Distribution Width CV 15.2 % (11.6-14.6); RBC Distribution Width SD 46.4 fl (35.1-43.9); Red Blood Count 4.66 M/mm3 (4.6-6.2); White Blood Count 7.3 K/mm3 (4.4-11.0)
[2022-09-10 06:53] LABS: AST(SGOT) 26 U/L (15-37); Alanine Aminotransfer ALT/SGPT 45 U/L (16-61); Albumin, Serum 3.2 g/dL (3.2-5.0); Alkaline Phosphatase 113 U/L (45-117); Anion Gap 7 (5-15); BUN 17 mg/dL (7-18); BUN/Creat Ratio 17.4 RATIO (10-20); Calcium,Total 9.2 mg/dL (8.5-10.1); Chloride 104 mmol/L (98-107); Creatinine, Serum 0.98 mg/dL (0.70-1.30); EST Glomerular Filtration Rate 81 mL/min (>60); Est Glom Filt Rate - Afr Amer 98 mL/min (>60); Globulin 3.3 g/dL (2.2-4.2); Glucose 109 mg/dL (74-106); Potassium 4.2 mmol/L (3.5-5.1); Protein, Total 6.5 g/dL (6.4-8.2); Sodium Level 137 mmol/L (136-145)
== END ==
LOC: OLS.WHLEAS 05:00
PROVIDERS: Visit Provider Internal Medicine
DX: R53.81 Other malaise (principal); I10 Essential (primary) hypertension; G40.909 Epilepsy, unspecified, not intractable, without status epilepticus; M15.0 Primary generalized (osteo)arthritis
CPT/HCPCS: 36415; 80053; 85025

== ENCOUNTER → 2022-09-23 | Outpatient (REF) | payer MEDICARE, MEDICAID, SELFPAY ==
[2022-09-23 08:34] LABS: Absolute Lymphocyte Count 1.09 X10^3/uL (0.83-4.51); Absolute Neutrophil Count 4.1 X10^3/uL (2.0-7.7); Basophil# 0.02 X10^3/uL; Basophil% 0.3 % (0-1); Eosinophil# 0.17 X10^3/uL; Eosinophils% 2.8 % (0-5); Hematocrit 38.2 % (40-54); Hemoglobin 12.2 g/dL (13.0-16.5); Lymphocyte # 1.09 X10^3/ul (0.83-4.51); Lymphocyte % 18.2 % (19-41); Mean Corp Hgb Conc 31.9 g/dL (32-36); Mean Corpuscular Hgb 26.3 pg (27.0-32.0); Mean Corpuscular Volume 82.5 fL (80-94); Mean Platelet Vol. 9.4 fl (6.2-12.0); Monocyte# 0.56 X10^3/uL; Monocyte% 9.3 % (0-10); NRBC Flagged by Analyzer 0 % (0-5); Neutrophil # 4.13 X10^3/uL (2.7-7.7); Neutrophil % 69.1 % (47-70); Platelet Count 259 K/mm3 (150-450); RBC Distribution Width CV 15.7 % (11.6-14.6); RBC Distribution Width SD 47.5 fl (35.1-43.9); Red Blood Count 4.63 M/mm3 (4.6-6.2)
[2022-09-23 08:59] LABS: Anion Gap 6 (5-15); BUN 8 mg/dL (7-18); BUN/Creat Ratio 8.5 RATIO (10-20); Calcium,Total 9.5 mg/dL (8.5-10.1); Chloride 106 mmol/L (98-107); Creatinine, Serum 0.94 mg/dL (0.70-1.30); EST Glomerular Filtration Rate 85 mL/min (>60); Est Glom Filt Rate - Afr Amer 102 mL/min (>60); Glucose 103 mg/dL (74-106); Potassium 4.1 mmol/L (3.5-5.1); Sodium Level 139 mmol/L (136-145)
== END ==
LOC: OLS.WHLEAS 05:00
PROVIDERS: Visit Provider Internal Medicine
DX: R53.81 Other malaise (principal); I10 Essential (primary) hypertension; G40.909 Epilepsy, unspecified, not intractable, without status epilepticus; M15.0 Primary generalized (osteo)arthritis; Z47.1 Aftercare following joint replacement surgery
CPT/HCPCS: 36415; 80048; 85025

== ENCOUNTER → 2022-10-04 | Outpatient (REF) | payer MEDICARE, MEDICAID, SELFPAY ==
[2022-10-06 08:40] LABS: Color, Urine Amber (Yellow); Glucose, Dipstick Normal (Normal); Ketone-Dipstick 5 mg/dl (Negative); Leukocyte Esterase-Dipstick 500 /ul (Negative); Nitrite-Dipstick Positive (Negative); Occult Blood-Urine 250 /ul (Negative); Protein-Dipstick 100 mg/dl (Negative); Specific Gravity, Urine 1.015 (1.002-1.030); Urine Bilirubin Dipstick Negative (Negative); Urine Clarity Sl. Cloudy (Clear); Urine Urobilinogen Normal (Normal)
== END ==
LOC: OLS.WHLEAS 08:26
PROVIDERS: Referring Provider Nurse Practitioner Adult Health; Visit Provider Nurse Practitioner Adult Health
DX: R31.9 Hematuria, unspecified (principal)
CPT/HCPCS: 81002; 87077; 87086; 87088; 87186

== ENCOUNTER → 2022-10-07 | Outpatient (REF) | payer MEDICARE, MEDICAID, SELFPAY ==
[2022-10-07 09:43] LABS: Absolute Lymphocyte Count 0.99 X10^3/uL (0.83-4.51); Absolute Neutrophil Count 7.5 X10^3/uL (2.0-7.7); Basophil# 0.03 X10^3/uL; Basophil% 0.3 % (0-1); Eosinophil# 0.15 X10^3/uL; Eosinophils% 1.6 % (0-5); Hematocrit 38.9 % (40-54); Hemoglobin 12.3 g/dL (13.0-16.5); Lymphocyte # 0.99 X10^3/ul (0.83-4.51); Lymphocyte % 10.5 % (19-41); Mean Corp Hgb Conc 31.6 g/dL (32-36); Mean Corpuscular Hgb 26.9 pg (27.0-32.0); Mean Corpuscular Volume 84.9 fL (80-94); Mean Platelet Vol. 9.8 fl (6.2-12.0); Monocyte# 0.75 X10^3/uL; Monocyte% 7.9 % (0-10); NRBC Flagged by Analyzer 0 % (0-5); Neutrophil # 7.52 X10^3/uL (2.7-7.7); Neutrophil % 79.4 % (47-70); Platelet Count 256 K/mm3 (150-450); RBC Distribution Width CV 16.3 % (11.6-14.6); RBC Distribution Width SD 50.5 fl (35.1-43.9); Red Blood Count 4.58 M/mm3 (4.6-6.2); White Blood Count 9.5 K/mm3 (4.4-11.0)
[2022-10-07 09:49] LABS: Anion Gap 7 (5-15); BUN 10 mg/dL (7-18); BUN/Creat Ratio 10.2 RATIO (10-20); Calcium,Total 9.5 mg/dL (8.5-10.1); Chloride 104 mmol/L (98-107); Creatinine, Serum 0.98 mg/dL (0.70-1.30); EST Glomerular Filtration Rate 80 mL/min (>60); Est Glom Filt Rate - Afr Amer 97 mL/min (>60); Glucose 114 mg/dL (74-106); Sodium Level 136 mmol/L (136-145)
== END ==
LOC: OLS.WHLEAS 05:00
PROVIDERS: Visit Provider Internal Medicine
DX: R53.81 Other malaise (principal); I10 Essential (primary) hypertension; M15.0 Primary generalized (osteo)arthritis; G40.909 Epilepsy, unspecified, not intractable, without status epilepticus; Z47.1 Aftercare following joint replacement surgery
CPT/HCPCS: 36415; 80048; 85025

== ENCOUNTER 2022-11-04 18:42 | Emergency (ER) | payer MEDICARE, MEDICAID, SELFPAY ==
[2022-11-04 18:44] VITALS: BP 145/72; PULSE 112; RESP 18; TEMP 36.3; O2SAT 98
--- NOTE | 2022-11-04 21:01 | EDS_ITS ---
HPI History of Present Illness Chief Complaint: Complaint Informant: patient Narrative Narrative: Patient presenting with urinary retention over the last 3 or 4 hours since catheter was removed in the urology office. He has had it for several months. He was getting a trial today that he states he is apparently failing. No other issues acutely. [facility] Medical History Allergic rhinitis Ambulates with cane Arthritis Back pain BPH (benign prostatic hyperplasia) Class 2 obesity due to excess calories without serious comorbidity with body mass index (BMI) of 39.0 to 39.9 in adult COVID-19 Easy bruising Excessive bleeding History of edema History of pain when walking Hx of skin cancer, basal cell Hypertension Non-smoker Pneumonia due to 2019 novel coronavirus Primary osteoarthritis of right knee Prostate disease Seizures Wears glasses Home Medications cholecalciferol (vitamin D3) 1,250 mcg (50,000 unit) capsule 50,000 unit PO MO SUPPLEMENT #4 caps 01/10/19 [History Last Taken Unknown] metoprolol tartrate 25 mg tablet 25 mg PO DAILY BP 04/27/20 [History Last Taken 08/19/22] aspirin 81 mg tablet,delayed release (Adult Low Dose Aspirin) 81 mg PO QODAY SUPPLEMENT 07/11/20 [History Last Taken 04/22/22] cetirizine 10 mg tablet 10 mg PO PRN PRN ALLERGIES 07/11/20 [History Last Taken Unknown] mecobalamin (vitamin B12) 1,000 mcg chewable tablet 1,000 mcg PO DAILY SUPPLEMENT 03/11/21 [History Last Taken Unknown] guaifenesin 1,200 mg tablet, extended release 12 hr (Mucinex) 1,200 mg PO PRN PRN Cough 04/15/22 [History Last Taken Unknown] hydrochlorothiazide 12.5 mg capsule 12.5 mg PO DAILY BP 04/15/22 [History Last Taken Unknown] losartan 50 mg tablet 50 mg PO DAILY BP 04/15/22 [History Last Taken 04/29/22] acetaminophen 500 mg tablet 1,000 mg (2 x 500 mg) PO Q6H PRN PRN Pain Score 1-3 #0 tabs 09/01/22 [Rx Last Taken Unknown] ammonium lactate 12 % lotion 1 applic topical QHS #0 grams 09/01/22 [Rx Last Taken Unknown] finasteride 5 mg tablet 5 mg PO DAILY #0 tabs 09/01/22 [Rx Last Taken Unknown] menthol 0.44 %-zinc oxide 20.6 % topical ointment (Calmoseptine) 1 applic topical 1000,2200 #0 grams 09/01/22 [Rx Last Taken Unknown] polyethylene glycol 3350 17 gram oral powder packet 17 g PO DAILY #0 ea 09/01/22 [Rx Last Taken Unknown] potassium chloride 20 mEq tablet,extended release(part/cryst) (Klor-Con M) 20 meq PO BREAKFAST #0 tabs 09/01/22 [Rx Last Taken Unknown] sennosides 8.6 mg-docusate sodium 50 mg tablet (Stool Softener-Stimulant Laxative) 2 tab PO BID #0 tabs 09/01/22 [Rx Last Taken Unknown] tamsulosin 0.4 mg capsule 0.8 mg (2 x 0.4 mg) PO QHS #0 caps 09/01/22 [Rx Last Taken Unknown] Allergy/AdvReac Type Severity Reaction Status Date / Time streptomycin Allergy Other Verified 11/04/22 18:43 Family History Mother Cancer Father Cancer Surgical History History of total left knee replacement S/P appendectomy Status post surgical removal of malignant neoplasm of skin Social History household members: none Smoking Status: Never smoker alcohol intake: never substance use type: does not use ROS ROS ED Gastrointestinal Gastrointestinal: Reports abdominal pain; Denies nausea or vomiting Genitourinary Genitourinary ED: Reports other Details: Urinary retention see HPI ; Denies hematuria EXAM Physical Exam Const Vital Signs: 11/04/22 18:44 Temperature 97.3 F L Temperature Source Temporal Pulse Rate 112 H Respiratory Rate 18 Blood Pressure 145/72 H Blood Pressure Mean 96 Pulse Ox 98 Oxygen Delivery Method Room Air Positive well nourished and well developed Constitutional Narrative: Uncomfortable, mild distress due to discomfort General Appearance ED: well developed GI GI Narrative: Tender suprapubic and mildly distended otherwise benign abdomen no guarding or rebound no CVA tenderness Extremity normal to inspection Neuro oriented x3, CN's II-XII intact bilaterally, no focal motor deficits and no sensory deficits noted Motor Exam: strength 5/5 throughout Psych mental status grossly normal MDM MDM MDM Narrative Medical decision making narrative: Nursing placed Martinez catheter, almost a liter of nonbloody urine with sediment, patient feels much better asymptomatic. Stable for discharge given a leg bag to follow-up with urology. Discharge Plan Triage Chief Complaint: Complaint ED Provider: Keshav Lambert Dx/Rx/DC Orders Clinical Impression: Acute urinary retention Instructions: ED Martinez Catheter, Care, ED Urinary Retention, Male Prescriptions: No Action cholecalciferol (vitamin D3) 50,000 unit capsule 50,000 unit PO MO Qty: 4 Patient Comments: TAKE 1 CAPSULE BY MOUTH ONCE A WEEK metoprolol tartrate 25 mg tablet 25 mg PO DAILY cetirizine 10 mg tablet 10 mg PO PRN PRN (Reason: ALLERGIES) Patient Comments: TAKE 1 TABLET BY MOUTH ONCE DAILY aspirin [Adult Low Dose Aspirin] 81 mg tablet,delayed release (DR/EC) 81 mg PO QODAY mecobalamin (vitamin B12) 1,000 mcg tablet,chewable 1,000 mcg PO DAILY losartan 50 mg tablet 50 mg PO DAILY Patient Comments: TAKE 1 TABLET BY MOUTH ONCE DAILY hydrochlorothiazide 12.5 mg capsule 12.5 mg PO DAILY Patient Comments: TAKE 1 CAPSULE BY MOUTH ONCE DAILY NEEDED FOR LEG SWELLING Mucinex 1,200 mg Tablet Extended Release 12hr 1,200 mg PO PRN PRN (Reason: Cough) ammonium lactate 12 % Lotion 1 applic topical QHS Qty: 0 0RF Protocol: *Topical Application Instructions APPLICATION INSTRUCTIONS: heels polyethylene glycol 3350 17 gram Powder In Packet 17 g PO DAILY Qty: 0 0RF sennosides-docusate sodium [Stool Softener-Stimulant Laxat] 8.6-50 mg Tablet 2 tab PO BID Qty: 0 0RF acetaminophen 500 mg Tablet 1,000 mg PO Q6H PRN PRN (Reason: Pain Score 1-3) Qty: 0 0RF potassium chloride [Klor-Con M20] 20 mEq Tablet,Er Particles/Crystals 20 meq PO BREAKFAST Qty: 0 0RF tamsulosin 0.4 mg Capsule 0.8 mg PO QHS Qty: 0 0RF finasteride 5 mg Tablet 5 mg PO DAILY Qty: 0 0RF menthol-zinc oxide [Calmoseptine] 0.44-20.6 % Ointment 1 applic topical 1000,2200 Qty: 0 0RF Protocol: *Topical Application Instructions APPLICATION INSTRUCTIONS: bilat buttocks Primary Care Provider: [facility] Orin Casillas Referrals: [facility] Sonja,Orin Rendon [Primary Care Provider] - Doctor,Your [Non-Staff] - (Dr. Murray - call for directions on when to follow up) Disposition Disposition: Home, Self Care
--- NOTE | 2022-11-04 21:17 | ED.RN ---
PT NOT WANTING LEG BAG AT THIS TIME
== END 2022-11-04 21:19 | disposition home or self-care (01) ==
PROVIDERS: Emergency Provider Emergency Medicine; Visit Provider Emergency Medicine
DX: R33.9 Retention of urine, unspecified (principal); I10 Essential (primary) hypertension
CPT/HCPCS: 51702; 99283

== ENCOUNTER 2023-07-10 11:30 | Outpatient (RCR) | payer MEDICARE, MEDICAID, SELFPAY ==
--- NOTE | 2023-06-04 12:55 | HP.PTEVAL ---
Patient's Visit Information Visit Information Visit Information: LUCIAN LORD is a 67 year old M referred to Physical Therapy by Dr. Bryant Lobo DO with a diagnosis of Presence of unspecified artificial knee joint, Z96.659. Date of Evaluation: 06/04/23 Physical Therapist: Clifton Chaves Visit Plan Frequency: 2x /Week Duration: 6 Weeks Plan: Continue with improving right knee ROM, LE strength, balance, and gait. Use manual therapy and modalities as needed for pain control. Subjective Subjective: Pt. is a 67 y.o. male who has been having right knee pain for at least two years with no specific injury that he is aware of. Pt. eventually had x-ray which showed osteoarthritis. He had right TKR on 08-19-22 and had prostate issues and eventually had prostate surgery. Pt. had physical therapy in the hospital and [facility] the [facility]. He is currently ambulating with a quad cane which he was doing prior to his knee surgery. He denies any falls in the last six months. Pt. has difficulty with getting up from a chair, squatting, walking/standing for long periods of time, walking on uneven ground, ascending/descending stairs, occasionally sleeping, housework, and yard work. 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 He has had previous physical therapy in the hospital and [facility] after knee replacement surgery. Pt. rates right knee pain at 7/10 currently, at worst 9/10, at best 4/10 and describes the pain as dull and achy. He is taking Meloxicam. His PMH includes HBP controlled with medication, and prostrate surgery. He lives alone in a duplex with 12 steps to enter and handrail on right. His hobbies include fishing and going to [employer]. Objective Objective: Palpation- Vague tenderness over right knee Swelling- Right knee 42 cm and left knee 41 cm AROM left knee flexion 125 degrees and extension -10 degrees (in sitting), extension -14 degrees (in supine) AROM right knee flexion 107 degrees and extension -14 degrees (in sitting), extension -38 degrees (in supine) Left LE strength hip flexion 5/5, abduction 5/5, adduction 5/5, extension 5/5, knee flexion 5/5, knee extension 5/5, DF 5/5, PF 5/5 Right LE strength hip flexion 4/5, abduction 4/5, adduction 4/5, extension 4/5, knee flexion 3-/5, knee extension 3-/5, DF 4+/5, PF 4+/5 Tandem stance right [2 secs], left [2 secs ] SLS right [unable ], left [1 sec] 30 sec sit to stand- x 5 with bilateral arm assist TUG- 22 secs with no assistive device Gait-Pt. ambulates with quad cane with antalgic gait pattern of right leg and forward flexed posture. Stairs- Pt. ascends/descends stairs with step to gait pattern and unilateral handrail with quad cane. Balance/Special Test Scores WOMAC Total Score: 72 WOMAC Percentatge: 25.0000 Goals Goal 1:: Pt. will improve right knee AROM flexion > 110 degrees and extension <10 degrees in order to improve gait mechanics. Goal Time Frame: 4-6 Weeks Goal 2:: Pt. will improve right LE strength to 4+/5 for all motions within range in order to improve stability and balance. Goal Time Frame: 4-6 Weeks Goal 3:: Pt. will be able to complete at least 8 sit to stands in 30 secs with bilateral arm assist in order to improve mobility. Goal Time Frame: 4-6 Weeks Goal 4:: Pt. will improve TUG < 15 secs with no assistive device in order to reduce risk for falls and improve mobility. Goal Time Frame: 4-6 Weeks Goal 5:: Pt. will rate right knee pain at worst at 5/10 with ADL's. Goal Time Frame: 4-6 Weeks Goal 6:: Pt. will improve WOMAC score by 15 points in order to improve ADL's. Goal Time Frame: 4-6 Weeks Rehabilitation Potential Physical Therapy Diagnosis: Decreased right knee ROM, LE weakness, difficulty walking, balance impairment, and pain Rehabilitation Potential: Fair Anticipated Interventions Patient/Client Instruction: Educate patient on: Condition, Plan of Care and Benefits of Fitness Program For the Purpose of:: To decrease pain, To increase ROM, To improve ability to perform ADL's, To improve performance and independence with ADL's, To increase flexibility/ROM, To improve endurance, To improve balance, To assume or resume ADL's and To improve tolerance to ADL's Therapeutic Exercise to Include: Strength training, Balance training, Flexibilty training, Gait and locomotor training, Passive ROM and Active ROM Comment: Focus on improving right knee ROM, LE strength, and balance exercises. For the Purpose of:: To decrease pain, To increase ROM, To improve ability to perform ADL's, To improve performance and independence with ADL's, To improve gait and locomotor functions, To improve endurance, To improve balance, To assume or resume ADL's and To improve tolerance to ADL's Functional Training to Include: ADL Training and Gait training For the Purpose of:: To decrease pain, To improve ability to perform ADL's, To improve performance and independence with ADL's, To improve gait and locomotor functions, To improve balance, To improve safety with gait, To assume or resume ADL's, To improve safety and To improve tolerance to ADL's Manual Therapy Techniques to Include: Passive ROM and Soft tissue mobilization For the Purpose of:: To decrease pain, To decrease swelling/inflammation, To increase ROM, To improve ability to perform ADL's, To improve performance and independence with ADL's, To increase flexibility/ROM, To assume or resume ADL's, To improve safety and To improve tolerance to ADL's Assistive Devices: Cane For the Purpose of:: To improve ability to perform ADL's, To improve performance and independence with ADL's, To improve gait and locomotor functions, To improve endurance, To improve balance, To improve safety with gait, To improve safety and To improve tolerance to ADL's TENS: Yes IF ES: Yes Cryotherapy (ice pack, ice massage): Yes Vasopneumatic device: Yes For the Purpose of:: To decrease pain, To decrease swelling/inflammation, To increase ROM, To improve ability to perform ADL's, To improve performance and independence with ADL's, To improve gait and locomotor functions, To assume or resume ADL's and To improve tolerance to ADL's Text: Thank you for the opportunity to evaluate your patient. For Medicare and Medicare HMO plans, please review the plan of care and approve it. It will need to be FAXED BACK to us at [phone] for Medicare purposes. For Medicare only, by signing this I certify the plan of care. Please let me know if there are questions or concerns regarding this plan of care. Physician Signature: Date:
--- NOTE | 2023-07-13 09:19 | HP.PTREVAL ---
Re-Evaluation Intro: Dr. Bryant Lobo, DO, It has been my pleasure to treat LUCIAN LORD over the last 8 visits for Presence of unspecified artificial Right knee joint, Z96.659. Please see the progress note below for an update on the physical therapy plan of care! Subjective Subjective: Pt reports being stiff today and pain is about the same. Pt feels he isn't quite where he wants to be with his mobility. Objective Objective/Function: ROM: knee - flex 105, ext 0 deg Severe tightness in R hip flexor (20-65 deg, not able to lay flat with large pull/stretch in ant hip) MMT: L - knee ext 4+/5, knee flex 4-/5 R - knee ext 4-/5 with pulling in quad, knee flex 4-/5 PALPATION: TTP in R adductors, quads, distal hamstrings, ITB GAIT: R Trendelenburg, using SPC with heavy UE support, lacking full R hip ext, sustained trunk flex that improved slightly at end of session STAIRS: step to pattern using unilateral HR, good safety awareness MATT TEST: (+) iliopsoas and rectus femoris Plan Plan Plan: -hip flexor and long sitting HS stretching (need to get hip flat on table) active and manually with OP -quad strengthening (make sure quad set looks good, then progress to step ups, TKE.....) -hip strengthening (stress ABD and ext) Balance/Gait/Functional tests Balance/Special Test Scores WOMAC Total Score: 72 WOMAC Percentage: 25.0000 Goals Goals Goal 1:: Pt. will improve right knee AROM flexion > 110 degrees and extension <10 degrees in order to improve gait mechanics. Goal Time Frame: 4-6 Weeks Goal Progress: Progressing Goal 2:: Pt. will improve right LE strength to 4+/5 for all motions within range in order to improve stability and balance. Goal Time Frame: 4-6 Weeks Goal Progress: Progressing Goal 3:: Pt. will be able to complete at least 8 sit to stands in 30 secs with bilateral arm assist in order to improve mobility. Goal Time Frame: 4-6 Weeks Goal Progress: Progressing Goal 4:: Pt. will improve TUG < 15 secs with no assistive device in order to reduce risk for falls and improve mobility. Goal Time Frame: 4-6 Weeks Goal Progress: Progressing Goal 5:: Pt. will rate right knee pain at worst at 5/10 with ADL's. Goal Time Frame: 4-6 Weeks Goal Progress: Progressing Goal 6:: Pt. will improve WOMAC score by 15 points in order to improve ADL's. Goal Time Frame: 4-6 Weeks Goal Progress: Progressing Anticipated Interventions Anticipated Interventions Patient/Client Instruction: Educate patient on: Condition, Plan of Care and Benefits of Fitness Program For the Purpose of:: To decrease pain, To increase ROM, To improve ability to perform ADL's, To improve performance and independence with ADL's, To increase flexibility/ROM, To improve endurance, To improve balance, To assume or resume ADL's and To improve tolerance to ADL's Therapeutic Exercise to Include: Strength training, Balance training, Flexibilty training, Gait and locomotor training, Passive ROM and Active ROM Comment: Focus on improving right knee ROM, LE strength, and balance exercises. For the Purpose of:: To decrease pain, To increase ROM, To improve ability to perform ADL's, To improve performance and independence with ADL's, To improve gait and locomotor functions, To improve endurance, To improve balance, To assume or resume ADL's and To improve tolerance to ADL's Functional Training to Include: ADL Training and Gait training For the Purpose of:: To decrease pain, To improve ability to perform ADL's, To improve performance and independence with ADL's, To improve gait and locomotor functions, To improve balance, To improve safety with gait, To assume or resume ADL's, To improve safety and To improve tolerance to ADL's Manual Therapy Techniques to Include: Passive ROM and Soft tissue mobilization For the Purpose of:: To decrease pain, To decrease swelling/inflammation, To increase ROM, To improve ability to perform ADL's, To improve performance and independence with ADL's, To increase flexibility/ROM, To assume or resume ADL's, To improve safety and To improve tolerance to ADL's Assistive Devices: Cane For the Purpose of:: To improve ability to perform ADL's, To improve performance and independence with ADL's, To improve gait and locomotor functions, To improve endurance, To improve balance, To improve safety with gait, To improve safety and To improve tolerance to ADL's TENS: Yes IF ES: Yes Cryotherapy (ice pack, ice massage): Yes Vasopneumatic device: Yes For the Purpose of:: To decrease pain, To decrease swelling/inflammation, To increase ROM, To improve ability to perform ADL's, To improve performance and independence with ADL's, To improve gait and locomotor functions, To assume or resume ADL's and To improve tolerance to ADL's Re-Evaluation Ending Re-evaluation ending: Please do not hesitate to contact me at [phone] by phone or if you have questions or concerns regarding this new plan of care! Sincerely, ABDULLAHI FisherT
== END 2023-07-10 19:00 | disposition home or self-care (01) ==
LOC: PT 11:30
PROVIDERS: Referring Provider Orthopaedic Surgery; Visit Provider Orthopaedic Surgery
DX: Z96.659 Presence of unspecified artificial knee joint (principal)
CPT/HCPCS: 97110; 97140; 97162; 97164

== ENCOUNTER 2024-01-13 12:00 | Outpatient (RCR) | payer MEDICARE, MEDICAID, SELFPAY ==
--- NOTE | 2023-11-12 12:49 | HP.PTEVAL ---
Patient's Visit Information Visit Information Visit Information: LUCIAN LORD is a 67 year old M referred to Physical Therapy by Dr. Bryant Lobo DO with a diagnosis of Chronic R knee pain from TKA. Date of Evaluation: 11/12/23 Physical Therapist: Elmo Soni, PT, ATC Visit Plan Frequency: 2x /Week Duration: 4-6 Weeks Plan: R knee stretching and strengthening, balance and proprio, PROM/mobs, core strengthening, nustep, and HEP Subjective Subjective: Pt had a R TKA one year ago. Pt reports shortly after his surgery, he had an enlarged prostate and had to get Rx for that. Pt reports he was not able to spend the amount of time rehabbing his knee like he needed to, so his R knee has locked up on him. Pt reports he is here today to focus on strength and ROM, as well as to see if we can decrease his R knee pain. Pt reports he has stairs at home that he has to negotiate one step at a time. Pt reports he is also unable to drive at this time secondary to car transfers and having a stiff knee. Pt reports occasional sleep difficulty at this time secondary to pain. Pt reports he is able to perform most of his house chores, but he has to take frequent breaks secondary to pain and weakness. 6/10 R knee pain while sitting here at rest, but increases to 8/10 with activity. Pain R knee pain: Pain Intensity (Out of 10): 6 Pain Intensity Range: 8 Objective Objective: Neuro: B LE sensation is WNL to light touch. ROM: L knee 0-10-125 degrees; R knee 0-35-90 degrees MMT: L knee flex= 40, ext= 37 #F; R knee flex= 17, ext= 21 Gait: Pt is able to ambulate approximately 150 feet with standard cane until needing a break secondary to fatigue. TU.8 sec Balance/Special Test Scores WOMAC Total Score: 55 WOMAC Percentatge: 42.7100 Goals Goal 1:: Decrease R knee pain x 50% to aid with sleep Goal Time Frame: 4-6 Weeks Goal 2:: Increase R knee ROM x 30 degrees to aid with IADL's Goal Time Frame: 4-6 Weeks Goal 3:: Increase R knee strength x 10#F to aid with stair negotiation Goal Time Frame: 4-6 Weeks Goal 4:: I with HEP Goal Time Frame: 4-6 Weeks Rehabilitation Potential Physical Therapy Diagnosis: Pt has R knee pain, weakness, and difficulty with ambulation secondary to R TKA Rehabilitation Potential: Good Anticipated Interventions Patient/Client Instruction: Educate patient on: Condition and Plan of Care For the Purpose of:: To improve self management Therapeutic Exercise to Include: Strength training, Endurance training, Balance training, Flexibilty training, Passive ROM, Active ROM and Dynamic Lumbar Stabilization For the Purpose of:: To improve self management Cryotherapy (ice pack, ice massage): Yes For the Purpose of:: To decrease pain Text: Thank you for the opportunity to evaluate your patient. For Medicare and Medicare HMO plans, please review the plan of care and approve it. It will need to be FAXED BACK to us at [phone] for Medicare purposes. For Medicare only, by signing this I certify the plan of care. Please let me know if there are questions or concerns regarding this plan of care. Physician Signature: Date:
--- NOTE | 2024-01-08 13:05 | HP.PTREVAL ---
Re-Evaluation Intro: Dr. Bryant Lobo, DO, It has been my pleasure to treat LUCIAN LORD over the last 17 visits for Chronic R knee pain from TKA. Please see the progress note below for an update on the physical therapy plan of care! Subjective Subjective: Pt reports he is still limited with most IADL's at this time. Pt notes he is unable to clean his house, or mop his floors. Pt reports he is limited mostly by pain. Pt does feel like PT has made a big improvement thus far. Objective Objective/Function: R knee and thigh pain remain near a 6-7 R knee ROM 0-100 degrees R knee MMT: flex= 27, ext= 33 #F Gait: Pt is able to ambulate 170 feet with cane and CGAx1 until needing to rest secondary to fatigue Plan Plan Plan: 01/08/24- Cont 2x's per week x 4 weeks with focus on R knee strengthening, balance and proprio, core strengthening, nustep, and HEP Balance/Gait/Functional tests Balance/Special Test Scores Lower Extremity Functional Score: 21 WOMAC Total Score: 55 WOMAC Percentage: 42.7100 Goals Goals Goal 1:: Decrease R knee pain x 50% to aid with sleep Goal Time Frame: 4-6 Weeks Goal Progress: Progressing Goal 2:: Increase R knee ROM x 30 degrees to aid with IADL's Goal Time Frame: 4-6 Weeks Goal Progress: Goal Met Goal 3:: Increase R knee strength x 10#F to aid with stair negotiation Goal Time Frame: 4-6 Weeks Goal Progress: Goal Met Goal 4:: I with HEP Goal Time Frame: 4-6 Weeks Goal Progress: Progressing Goal 5:: Pt will be able to ambulate 340 feet with LRD and SBA to aid with community ambulation Goal Time Frame: 2-4 Weeks Goal Progress: New goal Goal 6:: Pt will perform TUG in under 20 seconds Goal Progress: New goal Anticipated Interventions Anticipated Interventions Patient/Client Instruction: Educate patient on: Condition and Plan of Care For the Purpose of:: To improve self management Therapeutic Exercise to Include: Strength training, Endurance training, Balance training, Flexibilty training, Passive ROM, Active ROM and Dynamic Lumbar Stabilization For the Purpose of:: To improve self management Cryotherapy (ice pack, ice massage): Yes For the Purpose of:: To decrease pain Re-Evaluation Ending Re-evaluation ending: Please do not hesitate to contact me at [phone] by phone or if you have questions or concerns regarding this new plan of care! Sincerely, Elmo Soni, PT, ATC
--- NOTE | 2024-03-03 11:02 | HP.PT.NRP ---
Patient Information Patient Information: LUCIAN LORD was seen in my office for initial evaluation on 11/12/23. The following Plan of Care was established for this patient: POC Established Initial Frequency: 2x /Week Initial Duration: 4-6 Weeks Anticipated Interventions Patient/Client Instruction: Educate patient on: Condition and Plan of Care For the Purpose of:: To improve self management Therapeutic Exercise to Include: Strength training, Endurance training, Balance training, Flexibilty training, Passive ROM, Active ROM and Dynamic Lumbar Stabilization For the Purpose of:: To improve self management Cryotherapy (ice pack, ice massage): Yes For the Purpose of:: To decrease pain Last Seen Last Seen: This patient was last seen in our office . Pertinent comments regarding their Physical therapy will appear below: Pt was treated for R knee pain for 18 PT visits through the date of 01/13/24. Pt has not returned through todays date and is discontinued at this time. At this point I will be discontinuing this patient from physical therapy. I would be happy to see this patient again in the future if found appropriate by the physician. Thank you! Elmo Soni, PT, ATC Balance/Gait/Functional tests Balance/Special Test Scores Lower Extremity Functional Score: 21 WOMAC Total Score: 55 WOMAC Percentage: 42.7100
== END 2024-01-13 19:00 | disposition home or self-care (01) ==
LOC: PT 12:00
PROVIDERS: Referring Provider Orthopaedic Surgery; Visit Provider Orthopaedic Surgery
DX: Z96.659 Presence of unspecified artificial knee joint (principal)
CPT/HCPCS: 97110; 97140; 97161; 97530